=== PATIENT | female | born 1955 | race Caucasian/White ===

== ENCOUNTER 2019-12-07 19:19 | Inpatient (IN) | payer BC ==
[2019-12-07] MEDS ORDERED: ONDANSETRON 4 MG/2 ML VIAL IVP STA (19:44)
[2019-12-07] MEDS ORDERED: SODIUM CHLORIDE 0.9% 1,000 ML IV STA (19:44)
[2019-12-07] MEDS ORDERED: ACETAMINOPHEN TAB 500 MG TAB PO STA (19:46)
--- NOTE | 2019-12-07 19:50 | ED ---
Fever HPI - General Chief Complaint: Fever Stated Complaint: Nausea, body aches, poss fever Time Seen by Provider: 12/07/19 19:31 Source: patient, RN notes reviewed Mode of arrival: ambulatory Limitations: no limitations - History of Present Illness Initial Comments: 64-year-old female presents emergency Department with chief complaint of fever. Patient states she started soreness fever bodyaches cough for right lower quadrant abdominal pain nausea. Patient denies any dysuria hematuria no flank pain no back pain no chest pain. Patient states she has some shortness of breath. She does admit to a slight cough. Patient denies taking any medicatio ns. Patient denies any sick contacts. Patient denies any neck pain or neck stiffness. Patient has not taken any Tylenol Motrin. - Related Data Allergies Allergy/AdvReac Type Severity Reaction Status Date / Time influenza virus vaccine, Allergy Rash/Hives Verified 12/07/19 19:27 specific Review of Systems ROS Statement: Those systems with pertinent positive or pertinent negative responses have been documented in the HPI. ROS Other: All systems not noted in ROS Statement are negative. Past Medical History Past Medical History: No Reported History History of Any Multi-Drug Resistant Organisms: None Reported Past Surgical History: No Surgical Hx Reported Past Psychological History: No Psychological Hx Reported Smoking Status: Current every day smoker Past Alcohol Use History: None Reported Past Drug Use History: None Reported General Exam Limitations: no limitations General appearance: alert, in no apparent distress Head exam: Present: atraumatic, normocephalic, normal inspection Eye exam: Present: normal appearance, PERRL, EOMI. Absent: scleral icterus, co njunctival injection, periorbital swelling ENT exam: Present: normal exam, normal oropharynx, mucous membranes moist, TM's normal bilaterally Neck exam: Present: normal inspection, full ROM. Absent: tenderness, meningismus, lymphadenopathy Respiratory exam: Present: normal lung sounds bilaterally. Absent: respiratory distress, wheezes, rales, rhonchi, stridor Cardiovascular Exam: Present: normal rhythm, tachycardia, normal heart sounds. Absent: systolic murmur, diastolic murmur, rubs, gallop, clicks GI/Abdominal exam: Present: soft, tenderness (Moderate right lower quadrant), normal bowel sounds. Absent: distended, guarding, rebound, rigid Back exam: Absent: CVA tenderness (R), CVA tenderness (L) Neurological exam: Present: alert, oriented X3 Skin exam: Present: warm, dry, intact, normal color. Absent: rash Course Vital Signs 12/07/19 19:23 Temperature 100.9 F H Pulse Rate 121 H Respiratory 22 Rate Blood Pressure 142/85 O2 Sat by Pulse 96 Oximetry Medical Decision Making - Medical Decision Making CT reveals evidence of colitis versus diverticulitis. Patient was started on Zosyn patient does have leukocytosis, febrile. Patient will be admitted to Dr. Robles with consult to surgery. - Lab Data Result diagrams: 12/07/19 20:17 12/07/19 20:17 Lab Results 12/07/19 12/07/19 12/07/19 Range/Units 20:17 20:17 20:17 WBC 23.9 H (3.8-10.6) k/uL RBC 4.61 (3.80-5.40) m/uL Hgb 14.3 (11.4-16.0) gm/dL Hct 43.3 (34.0-46.0) % MCV 93.8 (80.0-100.0) fL MCH 30.9 (25.0-35.0) pg MCHC 33.0 (31.0-37.0) g/dL RDW 12.4 (11.5-15.5) % Plt Count 315 (150-450) k/uL Neutrophils % 89 % Lymphocytes % 4 % Monocytes % 5 % Eosinophils % 1 % Basophils % 0 % Neutrophils # 21.2 H (1.3-7.7) k/uL Lymphocytes # 0.9 L (1.0-4.8) k/uL Monocytes # 1.3 H (0-1.0) k/uL Eosinophils # 0.2 (0-0.7) k/uL Basophils # 0.1 (0-0.2) k/uL Sodium 136 L (137-145) mmol/L Potassium 3.5 (3.5-5.1) mmol/L Chloride 103 (98-107) mmol/L Carbon Dioxide 23 (22-30) mmol/L Anion Gap 10 mmol/L BUN 8 (7-17) mg/dL Creatinine 0.56 (0.52-1.04) mg/dL Est GFR (CKD-EPI)AfAm >90 (>60 ml/min/1.73 sqM) Est GFR (CKD-EPI)NonAf >90 (>60 ml/min/1.73 sqM) Glucose 129 H (74-99) mg/dL Plasma Lactic Acid Derrick 1.1 (0.7-2.0) mmol/L Calcium 9.2 (8.4-10.2) mg/dL Total Bilirubin 0.9 (0.2-1.3) mg/dL AST 21 (14-36) U/L ALT 20 (4-34) U/L Alkaline Phosphatase 138 H (38-126) U/L Total Protein 8.1 (6.3-8.2) g/dL Albumin 4.4 (3.5-5.0) g/dL Amylase 65 (30-110) U/L Lipase 137 (23-300) U/L Urine Color Urine Appearance (Clear) Urine pH (5.0-8.0) Ur Specific Roosevelt (1.001-1.035) Urine Protein (Negative) Urine Glucose (UA) (Negative) Urine Ketones (Negative) Urine Blood (Negative) Urine Nitrite (Negative) Urine Bilirubin (Negative) Urine Urobilinogen (<2.0) mg/dL Ur Leukocyte Esterase (Negative) Urine RBC (0-5) /hpf Urine WBC (0-5) /hpf Ur Squamous Epith Cells (0-4) /hpf Urine Bacteria (None) /hpf Urine Mucus (None) /hpf 12/07/19 Range/Units 21:15 WBC (3.8-10.6) k/uL RBC (3.80-5.40) m/uL Hgb (11.4-16.0) gm/dL Hct (34.0-46.0) % MCV (80.0-100.0) fL MCH (25.0-35.0) pg MCHC (31.0-37.0) g/dL RDW (11.5-15.5) % Plt Count (150-450) k/uL Neutrophils % % Lymphocytes % % Monocytes % % Eosinophils % % Basophils % % Neutrophils # (1.3-7.7) k/uL Lymphocytes # (1.0-4.8) k/uL Monocytes # (0-1.0) k/uL Eosinophils # (0-0.7) k/uL Basophils # (0-0.2) k/uL Sodium (137-145) mmol/L Potassium (3.5-5.1) mmol/L Chloride (98-107) mmol/L Carbon Dioxide (22-30) mmol/L Anion Gap mmol/L BUN (7-17) mg/dL Creatinine (0.52-1.04) mg/dL Est GFR (CKD-EPI)AfAm (>60 ml/min/1.73 sqM) Est GFR (CKD-EPI)NonAf (>60 ml/min/1.73 sqM) Glucose (74-99) mg/dL Plasma Lactic Acid Derrick (0.7-2.0) mmol/L Calcium (8.4-10.2) mg/dL Total Bilirubin (0.2-1.3) mg/dL AST (14-36) U/L ALT (4-34) U/L Alkaline Phosphatase (38-126) U/L Total Protein (6.3-8.2) g/dL Albumin (3.5-5.0) g/dL Amylase (30-110) U/L Lipase (23-300) U/L Urine Color Yellow Urine Appearance Clear (Clear) Urine pH 6.0 (5.0-8.0) Ur Specific Roosevelt 1.014 (1.001-1.035) Urine Protein Negative (Negative) Urine Glucose (UA) Negative (Negative) Urine Ketones Trace H (Negative) Urine Blood Trace H (Negative) Urine Nitrite Negative (Negative) Urine Bilirubin Negative (Negative) Urine Urobilinogen <2.0 (<2.0) mg/dL Ur Leukocyte Esterase Negative (Negative) Urine RBC 1 (0-5) /hpf Urine WBC <1 (0-5) /hpf Ur Squamous Epith Cells 2 (0-4) /hpf Urine Bacteria Rare H (None) /hpf Urine Mucus Occasional H (None) /hpf Disposition Clinical Impression: Acute diverticulitis Disposition: ADMITTED IP TO THIS HOSP Condition: Fair Referrals: Jesus Cast DO [Primary Care Provider] - 1-2 days
[2019-12-07 20:26] LABS: Basophils # (A) 0.1 k/uL (0-0.2); Basophils % (A) 0 %; Eosinophils # (A) 0.2 k/uL (0-0.7); Eosinophils % (A) 1 %; HCT 43.3 % (34.0-46.0); HGB 14.3 gm/dL (11.4-16.0); Lymphocytes # (A) 0.9 k/uL (1.0-4.8); Lymphocytes % (A) 4 %; MCH 30.9 pg (25.0-35.0); MCV 93.8 fL (80.0-100.0); Mean Platelet Volume 7.6; Monocytes # (A) 1.3 k/uL (0-1.0); Monocytes % (A) 5 %; Neutrophils # (A) 21.2 k/uL (1.3-7.7); Neutrophils % (A) 89 %; Platelet Count 315 k/uL (150-450); RBC 4.61 m/uL (3.80-5.40); RDW 12.4 % (11.5-15.5); WBC 23.9 k/uL (3.8-10.6)
[2019-12-07 20:42] LABS: ALT 20 U/L (4-34); AST 21 U/L (14-36); African American GFR (CKD) >90 (>60 ml/min/1.73 sqM); Albumin 4.4 g/dL (3.5-5.0); Alkaline Phosphatase 138 U/L (38-126); Amylase 65 U/L (30-110); Anion Gap 10 mmol/L; Blood Urea Nitrogen 8 mg/dL (7-17); Calcium 9.2 mg/dL (8.4-10.2); Carbon Dioxide 23 mmol/L (22-30); Chloride 103 mmol/L (98-107); Glucose 129 mg/dL (74-99); Lipase 137 U/L (23-300); Non-African American GFR(CKD) >90 (>60 ml/min/1.73 sqM); Potassium 3.5 mmol/L (3.5-5.1); Sodium 136 mmol/L (137-145); Total Bilirubin 0.9 mg/dL (0.2-1.3); Total Protein 8.1 g/dL (6.3-8.2)
--- NOTE | 2019-12-07 20:46 | XR ---
EXAMINATION TYPE: XR chest 2V DATE OF EXAM: 12/07/2019 COMPARISON: NONE HISTORY: Fever with body aches. TECHNIQUE: Frontal and lateral views of the chest are obtained. FINDINGS: There is chronic parenchymal change without suspicious focal air space opacity, pleural ef fusion, or pneumothorax seen. Calcified nodules or granulomas right mid lung are present. The cardia c silhouette size is within normal limits with atherosclerotic change in thoracic aorta. Right senior international tax manager al jugular central venous catheter terminates at level of SVC. Sclerotic lesion right proximal humeru s favors bone infarct. IMPRESSION: Chronic emphysematous and parenchymal fibrotic changes without suspicious acute infiltra te.
[2019-12-07 21:32] LABS: Appearance,Urine Clear (Clear); Bacteria,Urine Rare /hpf; Bilirubin,Urine Negative (Negative); Blood,Urine Trace (Negative); Color,Urine Yellow; Glucose,Urine (UA) Negative (Negative); Ketones,Urine Trace (Negative); Leukocyte Esterase,Urine Negative (Negative); Mucus,Urine Occasional /hpf; Nitrite,Urine Negative (Negative); Protein,Urine Negative (Negative); RBC,Urine 1 /hpf (0-5); Specific Gravity,Urine 1.014 (1.001-1.035); Squamous Epithelial Cell,Urine 2 /hpf (0-4); Urobilinogen,Urine <2.0 mg/dL (<2.0); WBC,Urine <1 /hpf (0-5)
--- NOTE | 2019-12-07 21:57 | CT ---
EXAMINATION TYPE: CT abdomen pelvis w con DATE OF EXAM: 12/07/2019 HISTORY: Abdominal pain, nausea CT DLP: 1223.2mGycm Automated Exposure Control for Dose Reduction was Utilized. CONTRAST: CT scan of the abdomen and pelvis is performed without oral but with IV Contrast, patient injected wi th 100 mL of Isovue 300. COMPARISON: None. FINDINGS: LUNG BASES: Coronary artery calcification and/or stents. Mild emphysematous change and linear scarrin g in both bases. LIVER/GB: No significant abnormality is appreciated. PANCREAS: No significant abnormality is seen. SPLEEN: Few scattered calcifications throughout the spleen consistent with product of old granulomato us disease. ADRENALS: No significant abnormality is seen. KIDNEYS: Symmetrical medullary uptake and excretion without hydronephrosis seen bilaterally. BOWEL: Suboptimal evaluation without enteric contrast. No suspicious small or large bowel dilatation. Stomach is poorly distended and thus suboptimally evaluated. Cannot exclude moderate diffuse gastrit is with prominence of gastric folds. Correlate clinically. Distal colonic diverticula greatest in the sigmoid colon with mild fat stranding and moderate to severe wall thickening mid to distal sigmoid c olon level extending into rectum. UTERUS/ADNEXA: Anteverted uterus extends to right of midline. LYMPH NODES: No greater than 1cm abdominal or pelvic lymph nodes are appreciated. OSSEOUS STRUCTURES: No significant abnormality is seen. OTHER: Partial visualization of ASSOCIATE PROFESSOR OF THEATRE shunt catheter terminating in the left pelvis. No significant asci erin currently. IMPRESSION: Distal colonic diverticulosis and fairly severe wall thickening with mild surrounding flu id and/or fat stranding suspicious for uncomplicated acute colitis possibly on basis of acute diverti culitis. Other etiologies such as infectious and/or inflammatory process not excluded. Advise colonos copy follow-up after treatment if that has not been performed in last 3 years to exclude underlying n eoplasm due to the severe wall thickening at the level of the distal sigmoid rectal colon.
[2019-12-07] MEDS ORDERED: PIPERACILLIN-TAZOBACTAM 3.375 GM in SODIUM CHLORIDE 0.9% 100 ML IVPB STA (22:00)
[2019-12-07] MEDS ORDERED: NALOXONE 0.4 MG/ML 1 ML VIAL IV PRN (22:22)
[2019-12-07] MEDS: SODIUM CHLORIDE 0.9% 1,000 ML IV SCH (23:00)
[2019-12-08] MEDS ORDERED: POTASSIUM CHLORIDE ER 20 MEQ TAB.ER PO STA (02:06)
--- NOTE | 2019-12-08 02:14 | P.HPIM ---
History of Present Illness H&P Date: 12/08/19 Chief Complaint: abd pain , nausea vomiting, and fever 64 -year-old female with history of coronary artery disease, hypertension, hypothyroid Patient comes in with couple day history of diffuse abdominal pain mainly in the right lower quadrant colicky in nature 5-8 out of 10 in severity comes and goes associated with nausea vomiting and by mouth intolerance, patient today started noticing fevers for which she decided come to the hospital this was also associated with some loose bowel movement but denies any bloody bowel movement denies any bloody vomiting or coffee-ground vomiting. Patient never had similar pain in the past however she does report generalized body aches which she relates to being in her 60s. Patient lives with her mother denies any sick contacts denies any recent traveling. She otherwise denies any chest pain or trouble breathing denies any upper respiratory infection like symptoms denies any sore throat denies any changes in smell or taste sensation. She denies any urinary changes. In the ED blood work showed leukocytosis imaging of the belly suggested colitis on a background of possible acute diverticulitis Review of Systems Pertinent positives as noted in HPI. All other systems were reviewed and are negative Past Medical History Past Medical History: Coronary Artery Disease (CAD), Cancer, Hyperlipidemia, Hypertension, Myocardial Infarction ([place]) Additional Past Medical History / Comment(s): hepatits as a child, latent TB at 31 years old, breast cancer, benign intracranial hypertension. Last Myocardial Infarction Date:: 2006 History of Any Multi-Drug Resistant Organisms: None Reported Past Surgical History: No Surgical Hx Reported Additional Past Surgical History / Comment(s): heart stents x2, partial left mastectomy, SECURITY AUDITOR shunt. Past Anesthesia/Blood Transfusion Reactions: No Reported Reaction Past Psychological History: No Psychological Hx Reported Smoking Status: Current every day smoker Past Alcohol Use History: None Reported Past Drug Use History: None Reported - Past Family History Father Family Medical History: Cancer Mother Family Medical History: Cancer Medications and Allergies Home Medications Medication Instructions Recorded Confirmed Type Atorvastatin [Lipitor] 10 mg PO HS 12/07/19 12/07/19 History Clopidogrel [Plavix] 75 mg PO HS 12/07/19 12/07/19 History Levothyroxine Sodium [Synthroid] 100 mcg PO DAILY 12/07/19 12/07/19 History Losartan/Hydrochlorothiazide 1 tab PO DAILY 12/07/19 12/07/19 History [Losartan-Hctz 50-12.5 mg Tab] Metoprolol Succinate [Toprol XL] 50 mg PO DAILY 12/07/19 12/07/19 History Omeprazole [PriLOSEC] 20 mg PO BID 12/07/19 12/07/19 History Allergies Allergy/AdvReac Type Severity Reaction Status Date / Time amoxicillin Allergy Rash/Hives Verified 12/07/19 22:48 influenza virus vaccine, Allergy Rash/Hives Verified 12/07/19 19:27 specific Tetracyclines Allergy Rash/Hives Verified 12/07/19 22:48 codeine AdvReac SYNCOPE Verified 12/07/19 22:48 Physical Exam Vitals: Vital Signs Temp Pulse Pulse Resp BP BP Pulse Ox 12/08/19 02:01 98.3 F 83 93 L 12/07/19 23:37 98.3 F 90 17 112/62 93 L 12/07/19 23:07 98.7 F 91 16 113/58 96 12/07/19 22:00 103 H 20 116/78 98 12/07/19 20:00 20 12/07/19 19:23 100.9 F H 121 H 22 142/85 96 Intake and Output 12/07/19 12/07/19 12/08/19 14:59 22:59 06:59 Other: Weight 77.111 kg 82.3 kg Constitutional: No acute distress, conversant, pleasant Eyes: Anicteric sclerae, moist conjunctiva, Pupils equal round reactive to light ENMT: NC/AT Oropharynx clear, no erythema, or exudates Neck: Supple, FROM, no masses, or JVD No carotid bruits No thyromegaly Lungs: Clear to auscultation Clear to percussion Normal respiratory effort, no accessory muscle use Cardiovascular: Heart regular in rate and rhythm, No murmurs, gallops, or rubs No peripheral edema Abdominal: Soft Tenderness to deep palpation especially over the right lower quadrant, no guarding, positive rebound tenderness, no rigidity Abdomen moving with respiration Normoactive bowel sounds No hepatomegaly, No splenomegaly No palpable mass No abdominal wall hernia noted Skin: Normal temperature, tone, texture, turgor No induration No subcutaneous nodules No rash, lesions No ulcers Extremities: No digital cyanosis No clubbing Pedal pulses intact and symmetrical Radial pulses intact and symmetrical No calf tenderness Psychiatric: Alert and oriented to person, place and time Appropriate affect fair judgement Neuro Muscles Strength 5/5 in all 4 extremities Sensation to light touch grossly present throughout Cranial nerves II-XII grossly intact No focal sensory deficits Lymphatics: no palpable cervical or supraclavicular , or inguinal lymph nodes Results CBC & Chem 7: 12/07/19 20:17 12/07/19 20:17 Labs: Abnormal Lab Results - Last 24 Hours (Table) 12/07/19 12/07/19 12/07/19 Range/Units 20:17 20:17 21:15 WBC 23.9 H (3.8-10.6) k/uL Neutrophils # 21.2 H (1.3-7.7) k/uL Lymphocytes # 0.9 L (1.0-4.8) k/uL Monocytes # 1.3 H (0-1.0) k/uL Sodium 136 L (137-145) mmol/L Glucose 129 H (74-99) mg/dL Alkaline Phosphatase 138 H (38-126) U/L Urine Ketones Trace H (Negative) Urine Blood Trace H (Negative) Urine Bacteria Rare H (None) /hpf Urine Mucus Occasional H (None) /hpf Thrombosis Risk Factor Assmnt - Choose All That Apply Any of the Below Risk Factors Present?: Yes Each Factor Represents 1 point: Obesity (BMI >25) Other Risk Factors: Yes Each Risk Factor Represents 2 Points: Age 61-74 years Other congenital or acquired thrombophilia - If yes, enter type in comment: No Thrombosis Risk Factor Assessment Total Risk Factor Score: 3 Thrombosis Risk Factor Assessment Level: Moderate Risk Assessment and Plan Assessment: Acute sepsis Acute colitis/diverticulitis Plan IV fluid hydration Nothing by mouth Pain control with morphine Antibiotics with Zosyn Follow-up cultures Discussed with patient to consider colonoscopy upon discharge 2- 3 months after the acute episode Mild hypokalemia Replace by mouth Follow-up electrolytes Chronic conditions History of coronary artery disease Hyperlipidemia Hypertension Hypothyroidism Resume home meds CODE STATUS: Full code DVT prophylaxis: Heparin subcu 3 times a day Discussed with: Patient, ER, RN Anticipated length of stay more than [address]: Home A total of 75 minutes was spent on the care of this complex patient more than 50% of the time was spent in counseling and care coordination.
[2019-12-08 06:08] LABS: Basophils % (A) 0 %; Eosinophils # (A) 0.2 k/uL (0-0.7); Eosinophils % (A) 1 %; HCT 40.1 % (34.0-46.0); HGB 12.9 gm/dL (11.4-16.0); Lymphocytes # (A) 0.8 k/uL (1.0-4.8); Lymphocytes % (A) 5 %; MCH 31.4 pg (25.0-35.0); MCHC 32.3 g/dL (31.0-37.0); MCV 97.4 fL (80.0-100.0); Mean Platelet Volume 7.8; Monocytes # (A) 1.2 k/uL (0-1.0); Monocytes % (A) 7 %; Neutrophils # (A) 14.7 k/uL (1.3-7.7); Neutrophils % (A) 86 %; Platelet Count 268 k/uL (150-450); RBC 4.12 m/uL (3.80-5.40); RDW 12.2 % (11.5-15.5); WBC 17.2 k/uL (3.8-10.6)
[2019-12-08] MEDS: LEVOTHYROXINE 100 MCG TAB PO SCH (06:13)
[2019-12-08] MEDS: ACETAMINOPHEN TAB 325 MG TAB PO PRN ×3 (06:13→18:43)
[2019-12-08] MEDS: SODIUM CHLORIDE 0.9% 1,000 ML IV SCH ×3 (06:14→22:53)
[2019-12-08 06:16] LABS: ALT 16 U/L (4-34); AST 18 U/L (14-36); African American GFR (CKD) >90 (>60 ml/min/1.73 sqM); Albumin 3.5 g/dL (3.5-5.0); Alkaline Phosphatase 98 U/L (38-126); Anion Gap 6 mmol/L; Blood Urea Nitrogen 7 mg/dL (7-17); Calcium 8.3 mg/dL (8.4-10.2); Carbon Dioxide 27 mmol/L (22-30); Chloride 107 mmol/L (98-107); Glucose 104 mg/dL (74-99); Non-African American GFR(CKD) >90 (>60 ml/min/1.73 sqM); Potassium 4.9 mmol/L (3.5-5.1); Sodium 140 mmol/L (137-145); Total Bilirubin 0.7 mg/dL (0.2-1.3); Total Protein 6.3 g/dL (6.3-8.2)
[2019-12-08] MEDS: PIPERACILLIN-TAZOBACTAM 3.375 GM in SODIUM CHLORIDE 0.9% 100 ML IVPB SCH ×3 (06:25→23:38)
[2019-12-08] MEDS: HEPARIN SODIUM,PORCINE 5,000 UNIT/ML 1 ML VIAL SQ SCH ×3 (08:05→23:38)
[2019-12-08] MEDS: PANTOPRAZOLE 40 MG TABLET PO SCH (08:05)
[2019-12-08] MEDS ORDERED: metroNIDAZOLE-NS PMX 500 MG in SALINE 1 100ML.BAG IVPB SCH (08:45)
[2019-12-08] MEDS ORDERED: METOPROLOL SUCCINATE (ER) 50 MG TAB.ER.24H PO SCH (09:00)
[2019-12-08] MEDS ORDERED: LOSARTAN-HCTZ 50-12.5 MG 1 EACH TAB PO SCH (09:00)
[2019-12-08] MEDS ORDERED: SODIUM CHLORIDE 0.9% 1,000 ML IV ONE (11:32)
--- NOTE | 2019-12-08 11:44 | P.GSCN ---
History of Present Illness Consult date: 12/08/19 History of present illness: CHIEF COMPLAINT: Abdominal pain with nausea and vomiting 1 day HISTORY OF PRESENT ILLNESS: This is a 64-year-old female with a known history of coronary disease with previous cardiac stents, myocardial infarction, hypertension, hyperlipidemia, benign cranial hypertension with GEODETIC ADVISOR shunt, nicotine dependence, left breast cancer with partial left mastectomy and chemo and radiation treatment. Patient presents to the emergency room with complaints of abdominal pain mostly on the right side with nausea sweats fevers and one episode of diarrhea. She has had no appetite and really has not eaten over the last 2 days. Patient reports her pain about a 5 out of 10. She had a temp of 101.5 in the ER was started on Zosyn and Flagyl for diverticulitis. We have been consulted for surgical management. PAST MEDICAL HISTORY: See list. PAST SURGICAL HISTORY: See list. MEDICATIONS: See list. ALLERGIES: See list. SOCIAL HISTORY: No illicit drug use. REVIEW OF SYSTEMS: CONSTITUTIONAL: Denies fever or chills. HEENT: Denies blurred vision, vision changes, or eye pain. Denies hemoptysis CARDIOVASCULAR: Denies chest pain or pressure. RESPIRATORY: No shortness of breath. GASTROINTESTINAL: See HPI for pertinent findings HEMATOLOGIC: Denies bleeding disorders. GENITOURINARY: Denies any blood in urine or increased urinary frequency. SKIN: Denies pruitis. Denies rash. PHYSICAL EXAM: VITAL SIGNS: Reviewed GENERAL: Well-developed in no acute distress. HEENT: No sclera icterus. Extraocular movements grossly intact. Moist buccal mucosa. Head is atraumatic, normocephalic. No nasal drainage. ABDOMEN: Soft. Obese. Nondistended. Tenderness with palpation to right lower quadrant. NEUROLOGIC: Alert and oriented. Cranial nerves II through XII grossly intact. LABORATORY DATA: WBC 23.9 down to 17.2, blood cultures pending, lactic 1.1 IMAGING: CT of the abdomen and pelvis showing distal colonic diverticulosis and fairly severe wall thickening with mild surrounding fluid and/or fat stranding suspicious for uncomplicated acute colitis possibly on the basis of acute diverticulitis. Other etiologies such as infectious and/or inflammatory process not excluded. Radiologist advises colonoscopy since last was performed in the last 3 years to exclude underlying neoplasm due to the severe wall thickening of the level of the distal sigmoid rectal: ASSESSMENT: 1. Abdominal pain with vomiting and fever likely secondary to diverticulitis 2. Acute diverticulitis 3. Severe wall thickening of the level of the distal sigmoid rectal colon noted on computed tomography scan of the abdomen 4. Hypotension and fever PLAN: -Continue IV antibiotics with Zosyn and Flagyl -Continue IV fluids -We will give 1 L normal saline IV fluid bolus for hypotension -Recommend colonoscopy in 6-8 weeks after acute diverticulitis infection has resolved -We'll keep patient nothing by mouth except for ice chips and popsicles -Check CBC in a.m. Thank you for this consultation. We'll follow along with you. Physician Heel Emery Buffer note has been reviewed by physician. Signing provider agrees with the documented findings, assessment, and plan of care. Past Medical History Past Medical History: Coronary Artery Disease (CAD), Cancer, Hyperlipidemia, Hypertension, Myocardial Infarction ([place]) Additional Past Medical History / Comment(s): hepatits as a child, latent TB at 31 years old, breast cancer, benign intracranial hypertension. Last Myocardial Infarction Date:: 2006 History of Any Multi-Drug Resistant Organisms: None Reported Past Surgical History: No Surgical Hx Reported Additional Past Surgical History / Comment(s): heart stents x2, partial left mastectomy, GEODETIC ADVISOR shunt. Past Anesthesia/Blood Transfusion Reactions: No Reported Reaction Past Psychological History: No Psychological Hx Reported Smoking Status: Current every day smoker Past Alcohol Use History: None Reported Past Drug Use History: None Reported - Past Family History Father Family Medical History: Cancer Mother Family Medical History: Cancer Medications and Allergies Home Medications Medication Instructions Recorded Confirmed Type Atorvastatin [Lipitor] 10 mg PO HS 12/07/19 12/07/19 History Clopidogrel [Plavix] 75 mg PO HS 12/07/19 12/07/19 History Levothyroxine Sodium [Synthroid] 100 mcg PO DAILY 12/07/19 12/07/19 History Losartan/Hydrochlorothiazide 1 tab PO DAILY 12/07/19 12/07/19 History [Losartan-Hctz 50-12.5 mg Tab] Metoprolol Succinate [Toprol XL] 50 mg PO DAILY 12/07/19 12/07/19 History Omeprazole [PriLOSEC] 20 mg PO BID 12/07/19 12/07/19 History Albuterol Inhaler [Ventolin Hfa 2 puff INHALATION RT-QID PRN 12/08/19 12/08/19 History Inhaler] Allergies Allergy/AdvReac Type Severity Reaction Status Date / Time amoxicillin Allergy Rash/Hives Verified 12/07/19 22:48 influenza virus vaccine, Allergy Rash/Hives Verified 12/07/19 19:27 specific Tetracyclines Allergy Rash/Hives Verified 12/07/19 22:48 codeine AdvReac SYNCOPE Verified 12/07/19 22:48 Surgical - Exam Vital Signs Temp Pulse Resp BP Pulse Ox 100.9 F H 121 H 22 142/85 96 12/07/19 19:23 12/07/19 19:23 12/07/19 19:23 12/07/19 19:23 12/07/19 19:23 Results - Labs 12/08/19 05:49 12/08/19 05:49 Abnormal Lab Results - Last 24 Hours (Table) 12/07/19 12/07/19 12/07/19 Range/Units 20:17 20:17 21:15 WBC 23.9 H (3.8-10.6) k/uL Neutrophils # 21.2 H (1.3-7.7) k/uL Lymphocytes # 0.9 L (1.0-4.8) k/uL Monocytes # 1.3 H (0-1.0) k/uL Sodium 136 L (137-145) mmol/L Glucose 129 H (74-99) mg/dL Calcium (8.4-10.2) mg/dL Alkaline Phosphatase 138 H (38-126) U/L Urine Ketones Trace H (Negative) Urine Blood Trace H (Negative) Urine Bacteria Rare H (None) /hpf Urine Mucus Occasional H (None) /hpf 12/08/19 12/08/19 Range/Units 05:49 05:49 WBC 17.2 H (3.8-10.6) k/uL Neutrophils # 14.7 H (1.3-7.7) k/uL Lymphocytes # 0.8 L (1.0-4.8) k/uL Monocytes # 1.2 H (0-1.0) k/uL Sodium (137-145) mmol/L Glucose 104 H (74-99) mg/dL Calcium 8.3 L (8.4-10.2) mg/dL Alkaline Phosphatase (38-126) U/L Urine Ketones (Negative) Urine Blood (Negative) Urine Bacteria (None) /hpf Urine Mucus (None) /hpf Diabetes panel 12/07/19 12/08/19 Range/Units 20:17 05:49 Sodium 136 L 140 (137-145) mmol/L Potassium 3.5 4.9 (3.5-5.1) mmol/L Chloride 103 107 (98-107) mmol/L Carbon Dioxide 23 27 (22-30) mmol/L BUN 8 7 (7-17) mg/dL Creatinine 0.56 0.65 (0.52-1.04) mg/dL Glucose 129 H 104 H (74-99) mg/dL Calcium 9.2 8.3 L (8.4-10.2) mg/dL AST 21 18 (14-36) U/L ALT 20 16 (4-34) U/L Alkaline Phosphatase 138 H 98 (38-126) U/L Total Protein 8.1 6.3 (6.3-8.2) g/dL Albumin 4.4 3.5 (3.5-5.0) g/dL Calcium panel 12/07/19 12/08/19 Range/Units 20:17 05:49 Calcium 9.2 8.3 L (8.4-10.2) mg/dL Albumin 4.4 3.5 (3.5-5.0) g/dL Pituitary panel 12/07/19 12/08/19 Range/Units 20:17 05:49 Sodium 136 L 140 (137-145) mmol/L Potassium 3.5 4.9 (3.5-5.1) mmol/L Chloride 103 107 (98-107) mmol/L Carbon Dioxide 23 27 (22-30) mmol/L BUN 8 7 (7-17) mg/dL Creatinine 0.56 0.65 (0.52-1.04) mg/dL Glucose 129 H 104 H (74-99) mg/dL Calcium 9.2 8.3 L (8.4-10.2) mg/dL Adrenal panel 12/07/19 12/08/19 Range/Units 20:17 05:49 Sodium 136 L 140 (137-145) mmol/L Potassium 3.5 4.9 (3.5-5.1) mmol/L Chloride 103 107 (98-107) mmol/L Carbon Dioxide 23 27 (22-30) mmol/L BUN 8 7 (7-17) mg/dL Creatinine 0.56 0.65 (0.52-1.04) mg/dL Glucose 129 H 104 H (74-99) mg/dL Calcium 9.2 8.3 L (8.4-10.2) mg/dL Total Bilirubin 0.9 0.7 (0.2-1.3) mg/dL AST 21 18 (14-36) U/L ALT 20 16 (4-34) U/L Alkaline Phosphatase 138 H 98 (38-126) U/L Total Protein 8.1 6.3 (6.3-8.2) g/dL Albumin 4.4 3.5 (3.5-5.0) g/dL
[2019-12-08] MEDS: ALBUTEROL NEBULIZED 2.5 MG/3 ML INHALATION SCH ×2 (13:19→13:31)
[2019-12-08] MEDS: ONDANSETRON 4 MG/2 ML VIAL IVP PRN ×2 (15:21→21:08)
--- NOTE | 2019-12-08 18:19 | P.PN ---
Progress Note - Text Progress Note Date: 12/08/19 Patient was seen. Please refer to H&P for full documentation. Patient continues to report lower abdominal pain. She is admitted for colitis and sepsis. Matthew has been admitted for anaerobic coverage. General surgery on board. Albuterol neb for shortness of breath or wheezing with history of COPD. Discussed with nursing, move to telemetry floor when bed available. She is pending clinical improvement. Likely DC in 2-3 days.
[2019-12-08] MEDS: metroNIDAZOLE-NS PMX 500 MG in SALINE 1 100ML.BAG IVPB SCH (19:03)
[2019-12-08] MEDS: ATORVASTATIN 10 MG TAB PO SCH (21:05)
[2019-12-08] MEDS: CLOPIDOGREL 75 MG TAB PO SCH (21:06)
[2019-12-08] MEDS: ALBUTEROL HFA INHALER INHALATION SCH (21:09)
[2019-12-09] MEDS: ALBUTEROL HFA INHALER INHALATION SCH ×4 (03:00→20:29)
[2019-12-09] MEDS: metroNIDAZOLE-NS PMX 500 MG in SALINE 1 100ML.BAG IVPB SCH ×3 (03:03→19:21)
[2019-12-09] MEDS: SODIUM CHLORIDE 0.9% 1,000 ML IV SCH ×4 (03:04→21:07)
[2019-12-09] MEDS: LEVOTHYROXINE 100 MCG TAB PO SCH (06:02)
[2019-12-09 07:52] LABS: Basophils % (A) 0 %; Eosinophils # (A) 0.1 k/uL (0-0.7); Eosinophils % (A) 0 %; HCT 35.2 % (34.0-46.0); HGB 10.9 gm/dL (11.4-16.0); Lymphocytes % (A) 8 %; MCH 30.4 pg (25.0-35.0); MCHC 30.9 g/dL (31.0-37.0); MCV 98.5 fL (80.0-100.0); Mean Platelet Volume 8.7; Monocytes # (A) 0.8 k/uL (0-1.0); Monocytes % (A) 6 %; Neutrophils # (A) 10.9 k/uL (1.3-7.7); Neutrophils % (A) 84 %; Platelet Count 227 k/uL (150-450); RBC 3.57 m/uL (3.80-5.40); RDW 12.7 % (11.5-15.5); WBC 13.1 k/uL (3.8-10.6)
[2019-12-09] MEDS: ACETAMINOPHEN TAB 325 MG TAB PO PRN (08:07)
[2019-12-09] MEDS: ONDANSETRON 4 MG/2 ML VIAL IVP PRN (08:08)
[2019-12-09] MEDS: PIPERACILLIN-TAZOBACTAM 3.375 GM in SODIUM CHLORIDE 0.9% 100 ML IVPB SCH ×3 (08:08→23:27)
[2019-12-09] MEDS: PANTOPRAZOLE 40 MG TABLET PO SCH (08:08)
[2019-12-09] MEDS: HEPARIN SODIUM,PORCINE 5,000 UNIT/ML 1 ML VIAL SQ SCH ×3 (08:08→23:28)
[2019-12-09 11:31] LABS: African American GFR (CKD) >90 (>60 ml/min/1.73 sqM); Anion Gap 7 mmol/L; Blood Urea Nitrogen 7 mg/dL (7-17); Calcium 8.4 mg/dL (8.4-10.2); Carbon Dioxide 22 mmol/L (22-30); Chloride 110 mmol/L (98-107); Glucose 74 mg/dL (74-99); Non-African American GFR(CKD) >90 (>60 ml/min/1.73 sqM); Potassium 4.4 mmol/L (3.5-5.1); Sodium 139 mmol/L (137-145)
[2019-12-09] MEDS ORDERED: KETOROLAC 15 MG/ML 1 ML VIAL IVP STA (13:21)
--- NOTE | 2019-12-09 14:30 | P.PN ---
Subjective Progress Note Date: 12/09/19 CHIEF COMPLAINT: Abdominal pain with nausea and vomiting HISTORY OF PRESENT ILLNESS: Patient is being followed for acute diverticulitis. She is still having some right lower abdominal pain. Her pain is starting to improve. She denies any nausea or vomiting. She reports having bowel movements. She did have a temp of 100.8 this morning. White count has gone down from 17.2 to 13.1. She remains on IV Zosyn and IV Flagyl. Hemoglobin 10.9. PHYSICAL EXAM: VITAL SIGNS: Reviewed. GENERAL: Well-developed in no acute distress. HEENT: No sclera icterus. Extraocular movements grossly intact. Moist buccal mucosa. Head is atraumatic, normocephalic. ABDOMEN: Soft. Nondistended. Tenderness to palpation of the right side of the lower abdomen NEUROLOGIC: Alert and oriented. Cranial nerves II through XII grossly intact. ASSESSMENT: 1. Abdominal pain with vomiting and fever likely secondary to diverticulitis 2. Acute diverticulitis 3. Severe wall thickening of the level of the distal sigmoid rectal colon noted on computed tomography scan of the abdomen 4. Hypotension and fever PLAN: -Advance diet to full liquid diet -Continue IV antibiotics with Zosyn and Flagyl -Continue IV fluids -Recommend colonoscopy in 6-8 weeks after acute diverticulitis infection has resolved -Check CBC in a.m. Physician Irrigation Supervisor note has been reviewed by physician. Signing provider agrees with the documented findings, assessment, and plan of care. Objective - Vital Signs Vital signs: Vital Signs Temp 97.1 F L 12/09/19 14:25 Pulse 70 12/09/19 14:25 Resp 15 12/09/19 14:25 BP 104/64 12/09/19 14:25 Pulse Ox 92 L 12/09/19 14:25 Intake & Output 12/08/19 12/09/19 12/09/19 18:59 06:59 18:59 Intake Total 40 1110 900 Output Total 300 Balance -260 1110 900 Intake: Intake, IV Titration 1050 900 Amount Piperacillin-Tazobactam 3 100 100 .375 gm In Sodium Chloride 0.9% 100 ml @ 25 mls/hr IVPB Q8H [facility] Rx#: [id number] Sodium Chloride 0.9% 1, 850 700 000 ml @ 130 mls/hr IV . Q7H42M [facility] Rx#:[id number] metroNIDAZOLE-NS PMX 500 100 mg In Saline 1 100ml.bag @ 100 mls/hr IVPB 0300, 1100,1900 [facility] Rx#: [id number] metroNIDAZOLE-NS PMX 500 100 mg In Saline 1 100ml.bag @ 100 mls/hr IVPB Q8HR [facility] Rx#:[id number] Oral 40 60 Output: Urine 250 Emesis 50 Other: Voiding Method Bedside Commode # Voids 1 # Bowel Movements 1 - Labs CBC & Chem 7: 12/09/19 06:15 12/09/19 06:15 Labs: Abnormal Lab Results - Last 24 Hours (Table) 12/09/19 12/09/19 Range/Units 06:15 06:15 WBC 13.1 H (3.8-10.6) k/uL RBC 3.57 L (3.80-5.40) m/uL Hgb 10.9 L (11.4-16.0) gm/dL MCHC 30.9 L (31.0-37.0) g/dL Neutrophils # 10.9 H (1.3-7.7) k/uL Chloride 110 H (98-107) mmol/L Microbiology - Last 24 Hours (Table) 12/07/19 20:17 Blood Culture - Preliminary Blood No Growth after 24 hours
--- NOTE | 2019-12-09 15:48 | P.PN ---
Subjective Progress Note Date: 12/09/19 Principal diagnosis: Colitis Patient was seen and examined. No acute events overnight. Patient reports frontal headache today. Abdominal pain improved. She denies any fever or chills. Reports multiple bowel movements today, more formed stool, brown in color. Objective - Vital Signs Vital signs: Vital Signs Temp 97.1 F L 12/09/19 14:25 Pulse 70 12/09/19 14:25 Resp 15 12/09/19 14:25 BP 104/64 12/09/19 14:25 Pulse Ox 92 L 12/09/19 14:25 Intake & Output 12/08/19 12/09/19 12/09/19 18:59 06:59 18:59 Intake Total 40 1110 1140 Output Total 300 Balance -260 1110 1140 Intake: Intake, IV Titration 1050 900 Amount Piperacillin-Tazobactam 3 100 100 .375 gm In Sodium Chloride 0.9% 100 ml @ 25 mls/hr IVPB Q8H [facility] Rx#: [id number] Sodium Chloride 0.9% 1, 850 700 000 ml @ 130 mls/hr IV . Q7H42M [facility] Rx#:[id number] metroNIDAZOLE-NS PMX 500 100 mg In Saline 1 100ml.bag @ 100 mls/hr IVPB 0300, 1100,1900 [facility] Rx#: [id number] metroNIDAZOLE-NS PMX 500 100 mg In Saline 1 100ml.bag @ 100 mls/hr IVPB Q8HR [facility] Rx#:[id number] Oral 40 60 240 Output: Urine 250 Emesis 50 Other: Voiding Method Bedside Commode # Voids 1 # Bowel Movements 1 4 - Exam General: [non toxic], [no distress], [appears at stated age] Derm: [warm], [dry] Head: [atraumatic], [normocephalic], [symmetric] Eyes: [EOMI], [no lid lag], [anicteric sclera] Mouth: [no lip lesion], [mucus membranes moist] Cardiovascular: [S1S2 reg], [no murmur], [positive DP pulse bilateral], Lungs: [CTA bilateral], [no rhonchi, no rales] , [no accessory muscle use] Abdominal: [soft], [tenderness to palpation lower abdomen bilaterally without rebound], [no guarding], [no appreciable organomegaly] Ext: [no gross muscle atrophy], [no edema], [no contractures] Neuro: [no focal neuro deficits] Psych: [Alert], [oriented], [appropriate affect] - Labs CBC & Chem 7: 12/09/19 06:15 12/09/19 06:15 Labs: Abnormal Lab Results - Last 24 Hours (Table) 12/09/19 12/09/19 Range/Units 06:15 06:15 WBC 13.1 H (3.8-10.6) k/uL RBC 3.57 L (3.80-5.40) m/uL Hgb 10.9 L (11.4-16.0) gm/dL MCHC 30.9 L (31.0-37.0) g/dL Neutrophils # 10.9 H (1.3-7.7) k/uL Chloride 110 H (98-107) mmol/L Microbiology - Last 24 Hours (Table) 12/07/19 20:17 Blood Culture - Preliminary Blood No Growth after 24 hours Assessment and Plan Assessment: Sepsis with colitis CAD Hypertension Dyslipidemia COPD Hypothyroidism Patient had a low-grade fever of 100.8 Fahrenheit this morning. Her leukocytosis is improved. She'll be continued on Zosyn and Flagyl. Blood cultures are negative at 24 hours. General surgery on board. Continue normal saline at 130 mL/h. Continue Protonix by mouth. Zofran as needed for nausea or vomiting. Continue aspirin, Lipitor and Plavix. Hold beta gurmeet until blood pressure improved. BP 104/64. Holding antihypertensive medication due to sepsis. Continue Lipitor. DuoNeb as needed for shortness of breath and wheezing. Continue Synthroid. [Patient made for sepsis related to colitis. She is clinically improved. Blood cultures negative so far. Continue IV antibiotics. Likely DC in 2-3 days.]
[2019-12-09] MEDS: CLOPIDOGREL 75 MG TAB PO SCH (21:06)
[2019-12-09] MEDS: ATORVASTATIN 10 MG TAB PO SCH (21:06)
[2019-12-09] MEDS: KETOROLAC 15 MG/ML 1 ML VIAL IVP PRN (21:50)
[2019-12-10] MEDS: ALBUTEROL HFA INHALER INHALATION SCH ×3 (01:08→10:58)
[2019-12-10] MEDS: metroNIDAZOLE-NS PMX 500 MG in SALINE 1 100ML.BAG IVPB SCH ×4 (02:16→20:17)
[2019-12-10] MEDS ORDERED: ALPRAZolam 0.5 MG TAB PO STA (04:44)
[2019-12-10] MEDS: IPRATROPIUM-ALBUTEROL 3 ML NEB INHALATION PRN ×4 (04:54→19:14)
[2019-12-10] MEDS: ACETAMINOPHEN TAB 325 MG TAB PO PRN (05:07)
[2019-12-10] MEDS: LEVOTHYROXINE 100 MCG TAB PO SCH (05:36)
[2019-12-10] MEDS: SODIUM CHLORIDE 0.9% 1,000 ML IV SCH (06:19)
--- NOTE | 2019-12-10 06:43 | XR ---
EXAMINATION TYPE: XR chest 1V portable DATE OF EXAM: 12/10/2019 COMPARISON: 12/07/2019 HISTORY: Short of breath TECHNIQUE: Single view FINDINGS: Heart size is normal. There is mild coarsening of interstitial markings. There is some infi ltrate in the left lower lobe behind the heart. There is no heart failure. There are chest leads. Bon y thorax is intact. IMPRESSION: There is evidence of some new pneumonia left lower lobe compared to recent exam. Normal h eart.
[2019-12-10] MEDS: PIPERACILLIN-TAZOBACTAM 3.375 GM in SODIUM CHLORIDE 0.9% 100 ML IVPB SCH ×2 (08:05→16:23)
[2019-12-10] MEDS: HEPARIN SODIUM,PORCINE 5,000 UNIT/ML 1 ML VIAL SQ SCH ×2 (08:06→16:23)
[2019-12-10] MEDS: PANTOPRAZOLE 40 MG TABLET PO SCH (08:06)
[2019-12-10] MEDS: KETOROLAC 15 MG/ML 1 ML VIAL IVP PRN (08:17)
[2019-12-10 09:45] LABS: Basophils % (A) 0 %; Eosinophils % (A) 0 %; HGB 10.6 gm/dL (11.4-16.0); Lymphocytes # (A) 0.9 k/uL (1.0-4.8); Lymphocytes % (A) 9 %; MCH 30.4 pg (25.0-35.0); MCHC 31.1 g/dL (31.0-37.0); MCV 97.8 fL (80.0-100.0); Mean Platelet Volume 8.3; Monocytes # (A) 0.7 k/uL (0-1.0); Monocytes % (A) 6 %; Neutrophils % (A) 83 %; Platelet Count 261 k/uL (150-450); RBC 3.47 m/uL (3.80-5.40); RDW 12.8 % (11.5-15.5); WBC 10.9 k/uL (3.8-10.6)
[2019-12-10] MEDS: LOSARTAN-HCTZ 50-12.5 MG 1 EACH TAB PO SCH (12:29)
[2019-12-10] MEDS: METOPROLOL SUCCINATE (ER) 50 MG TAB.ER.24H PO SCH (12:29)
--- NOTE | 2019-12-10 15:20 | P.PN ---
Subjective Progress Note Date: 12/10/19 CHIEF COMPLAINT: Abdominal pain with nausea and vomiting HISTORY OF PRESENT ILLNESS: Patient is being followed for acute diverticulitis. Patient's abdominal pain has improved. She denies any nausea or vomiting. She reports having bowel movements. She did have a temp of 100.9 this morning. Patient did have a chest x-ray showing possible pneumonia left lower lobe. WBC down to 10.9 PHYSICAL EXAM: VITAL SIGNS: Reviewed. GENERAL: Well-developed in no acute distress. HEENT: No sclera icterus. Extraocular movements grossly intact. Moist buccal mucosa. Head is atraumatic, normocephalic. ABDOMEN: Soft. Nondistended. Nontender NEUROLOGIC: Alert and oriented. Cranial nerves II through XII grossly intact. ASSESSMENT: 1. Abdominal pain with vomiting likely secondary to diverticulitis 2. Acute diverticulitis 3. Severe wall thickening of the level of the distal sigmoid rectal colon noted on computed tomography scan of the abdomen PLAN: -Advance diet to regular -Continue IV antibiotics with Zosyn and Flagyl -Continue IV fluids -Recommend colonoscopy in 6-8 weeks after acute diverticulitis infection has resolved -Check CBC in a.m. Physician Wooden Boat Builder note has been reviewed by physician. Signing provider agrees with the documented findings, assessment, and plan of care. Objective - Vital Signs Vital signs: Vital Signs Temp 97.6 F 12/10/19 13:30 Pulse 68 12/10/19 13:30 Resp 16 12/10/19 13:30 BP 127/81 12/10/19 13:30 Pulse Ox 94 L 12/10/19 13:30 Intake & Output 12/09/19 12/10/19 12/10/19 18:59 06:59 18:59 Intake Total 1630 1560 240 Balance 1630 1560 240 Intake: Intake, IV Titration 900 1560 Amount Piperacillin-Tazobactam 3 100 .375 gm In Sodium Chloride 0.9% 100 ml @ 25 mls/hr IVPB Q8H [facility] Rx#: [id number] Sodium Chloride 0.9% 1, 700 1560 000 ml @ 130 mls/hr IV . Q7H42M [facility] Rx#:[id number] metroNIDAZOLE-NS PMX 500 100 mg In Saline 1 100ml.bag @ 100 mls/hr IVPB Q8HR [facility] Rx#:[id number] Oral 730 240 Other: Voiding Method Toilet Bedside Commode # Voids 2 3 # Bowel Movements 4 3 - Labs CBC & Chem 7: 12/10/19 08:05 12/09/19 06:15 Labs: Abnormal Lab Results - Last 24 Hours (Table) 12/10/19 Range/Units 08:05 WBC 10.9 H (3.8-10.6) k/uL RBC 3.47 L (3.80-5.40) m/uL Hgb 10.6 L (11.4-16.0) gm/dL Neutrophils # 9.0 H (1.3-7.7) k/uL Lymphocytes # 0.9 L (1.0-4.8) k/uL Microbiology - Last 24 Hours (Table) 12/07/19 20:17 Blood Culture - Preliminary Blood No Growth after 48 hours
[2019-12-10] MEDS: ALBUTEROL NEBULIZED 2.5 MG/3 ML INHALATION SCH ×2 (15:21→19:14)
--- NOTE | 2019-12-10 17:11 | P.PN ---
Subjective Progress Note Date: 12/10/19 Principal diagnosis: Colitis Patient was seen and examined. No acute events overnight. Abdominal pain improved. She denies any fever or chills. Reports multiple bowel movements today, more formed stool, brown in color. Overnight, had episode of shortness of breath requiring Ativan. She complains of raspy cough. She denies any chest pain or palpitations. On 2 L NC. Objective - Vital Signs Vital signs: Vital Signs Temp 97.6 F 12/10/19 13:30 Pulse 61 12/10/19 15:33 Resp 16 12/10/19 13:30 BP 127/81 12/10/19 13:30 Pulse Ox 96 12/10/19 15:21 Intake & Output 12/09/19 12/10/19 12/10/19 18:59 06:59 18:59 Intake Total 1630 1560 240 Balance 1630 1560 240 Intake: Intake, IV Titration 900 1560 Amount Piperacillin-Tazobactam 3 100 .375 gm In Sodium Chloride 0.9% 100 ml @ 25 mls/hr IVPB Q8H [facility] Rx#: [id number] Sodium Chloride 0.9% 1, 700 1560 000 ml @ 130 mls/hr IV . Q7H42M [facility] Rx#:[id number] metroNIDAZOLE-NS PMX 500 100 mg In Saline 1 100ml.bag @ 100 mls/hr IVPB Q8HR [facility] Rx#:[id number] Oral 730 240 Other: Voiding Method Toilet Bedside Commode # Voids 2 3 # Bowel Movements 4 3 - Exam General: [non toxic], [no distress], [appears at stated age] Derm: [warm], [dry] Head: [atraumatic], [normocephalic], [symmetric] Eyes: [EOMI], [no lid lag], [anicteric sclera] Mouth: [no lip lesion], [mucus membranes moist] Cardiovascular: [S1S2 reg], [no murmur], [positive DP pulse bilateral], Lungs: [Decreased breath sounds bilateral], [no rhonchi, no rales] , [no accessory muscle use] Abdominal: [soft], [tenderness to palpation lower abdomen bilaterally without rebound, significant improved], [no guarding], [no appreciable organomegaly] Ext: [no gross muscle atrophy], [no edema], [no contractures] Neuro: [no focal neuro deficits] Psych: [Alert], [oriented], [appropriate affect] - Labs CBC & Chem 7: 12/10/19 08:05 12/09/19 06:15 Labs: Abnormal Lab Results - Last 24 Hours (Table) 12/10/19 Range/Units 08:05 WBC 10.9 H (3.8-10.6) k/uL RBC 3.47 L (3.80-5.40) m/uL Hgb 10.6 L (11.4-16.0) gm/dL Neutrophils # 9.0 H (1.3-7.7) k/uL Lymphocytes # 0.9 L (1.0-4.8) k/uL Microbiology - Last 24 Hours (Table) 12/07/19 20:17 Blood Culture - Preliminary Blood No Growth after 48 hours Assessment and Plan Assessment: Sepsis with colitis Pneumonia CAD Hypertension Dyslipidemia COPD Hypothyroidism Patient had a low-grade fever of 100.9 Fahrenheit this morning. Her leukocytosis is improved. She'll be continued on Zosyn and Flagyl. Blood cultures are negative at 48 hours. General surgery on board. Continue normal saline at 130 mL/h. Continue Protonix by mouth. Zofran as needed for nausea or vomiting. As seen on chest x-ray. Plans to order pro-calcitonin. Repeat chest x-ray to morning. Attempt to wean oxygen. Continue current antibiotics. Continue aspirin, Lipitor and Plavix. Restart metoprolol. BP 163/69. Restart metoprolol, losartan and hydrochlorothiazide. Monitor vitals and adjust medications if necessary. Continue Lipitor. DuoNeb as needed for shortness of breath and wheezing. Continue Synthroid. [Patient made for sepsis related to colitis. She is clinically improved. Found to have infiltrate on chest x-ray. Repeat chest x-ray tomorrow morning. Wean oxygen. Continue IV antibiotics. Follow pro-calcitonin. Plans on DC home tomorrow if patient continues to show improvement.]
[2019-12-10] MEDS: CLOPIDOGREL 75 MG TAB PO SCH (20:17)
[2019-12-10] MEDS: ATORVASTATIN 10 MG TAB PO SCH (20:17)
[2019-12-11] MEDS: PIPERACILLIN-TAZOBACTAM 3.375 GM in SODIUM CHLORIDE 0.9% 100 ML IVPB SCH ×3 (00:26→16:41)
[2019-12-11] MEDS: HEPARIN SODIUM,PORCINE 5,000 UNIT/ML 1 ML VIAL SQ SCH ×3 (00:27→16:41)
[2019-12-11] MEDS: ALBUTEROL NEBULIZED 2.5 MG/3 ML INHALATION PRN ×2 (00:42→15:02)
[2019-12-11] MEDS ORDERED: ALPRAZolam 0.5 MG TAB PO STA (00:48)
[2019-12-11] MEDS: metroNIDAZOLE-NS PMX 500 MG in SALINE 1 100ML.BAG IVPB SCH ×3 (03:31→17:59)
--- NOTE | 2019-12-11 04:00 | XR ---
EXAMINATION TYPE: XR chest 1V portable DATE OF EXAM: 12/11/2019 COMPARISON: Yesterday HISTORY: Short of breath TECHNIQUE: FINDINGS: Heart is enlarged. There is some pulmonary vascular congestion with lower lobe pulmonary ed adolfo and atelectasis. There is blunting of the costophrenic angles. Thoracic aorta is atheromatous. Shivam [place] thorax is intact. 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 IMPRESSION: There is evidence of congestive heart failure with pleural effusions and lower lobe pulmo nary infiltrates and atelectasis increased compared to yesterday.
[2019-12-11] MEDS ORDERED: FUROSEMIDE 10 MG/ML 10 ML VIAL IV STA (04:04)
[2019-12-11] MEDS: ACETAMINOPHEN TAB 325 MG TAB PO PRN (05:15)
[2019-12-11] MEDS: LEVOTHYROXINE 100 MCG TAB PO SCH (06:19)
[2019-12-11] MEDS: ALBUTEROL NEBULIZED 2.5 MG/3 ML INHALATION SCH ×3 (07:01→18:48)
[2019-12-11] MEDS: PANTOPRAZOLE 40 MG TABLET PO SCH (07:24)
[2019-12-11] MEDS: LOSARTAN-HCTZ 50-12.5 MG 1 EACH TAB PO SCH (08:20)
[2019-12-11] MEDS: FUROSEMIDE 10 MG/ML 4 ML VIAL IV SCH (08:20)
[2019-12-11] MEDS: METOPROLOL SUCCINATE (ER) 50 MG TAB.ER.24H PO SCH (08:21)
[2019-12-11 08:54] LABS: Basophils # (A) 0.1 k/uL (0-0.2); Basophils % (A) 1 %; Eosinophils # (A) 0.1 k/uL (0-0.7); Eosinophils % (A) 1 %; HCT 37.3 % (34.0-46.0); HGB 11.7 gm/dL (11.4-16.0); Lymphocytes % (A) 9 %; MCH 30.3 pg (25.0-35.0); MCHC 31.5 g/dL (31.0-37.0); MCV 96.4 fL (80.0-100.0); Mean Platelet Volume 7.8; Monocytes # (A) 1.2 k/uL (0-1.0); Monocytes % (A) 10 %; Neutrophils # (A) 8.8 k/uL (1.3-7.7); Neutrophils % (A) 77 %; Platelet Count 258 k/uL (150-450); RBC 3.86 m/uL (3.80-5.40); RDW 12.7 % (11.5-15.5); WBC 11.4 k/uL (3.8-10.6)
--- NOTE | 2019-12-11 11:04 | P.PN ---
Subjective Progress Note Date: 12/11/19 CHIEF COMPLAINT: Abdominal pain with nausea and vomiting HISTORY OF PRESENT ILLNESS: Patient is being followed for acute diverticulitis. Patient's abdominal pain has improved. She denies any nausea or vomiting. She reports having bowel movements. Patient currently afebrile. Last elevated temperature 100.9 yesterday morning. Chest x-ray showing some evidence of fluid overload and possible infiltrates. Primary care did give 2 doses of IV Lasix. Patient reports improvement shortness of breath. Patient tolerating regular diet. The CBC 11.4. PHYSICAL EXAM: VITAL SIGNS: Reviewed. GENERAL: Well-developed in no acute distress. HEENT: No sclera icterus. Extraocular movements grossly intact. Moist buccal mucosa. Head is atraumatic, normocephalic. ABDOMEN: Soft. Nondistended. Nontender NEUROLOGIC: Alert and oriented. Cranial nerves II through XII grossly intact. ASSESSMENT: 1. Abdominal pain with vomiting likely secondary to diverticulitis 2. Acute diverticulitis 3. Severe wall thickening of the level of the distal sigmoid rectal colon noted on computed tomography scan of the abdomen PLAN: -Continue regular -Continue IV antibiotics with Zosyn and Flagyl -Recommend colonoscopy in 6-8 weeks after acute diverticulitis infection has resolved -Patient does not require any surgical intervention is discharged from surgical standpoint once cleared by medicine. -Patient follow-up with Dr. Rodriguez in 1 week Physician Panelbeater note has been reviewed by physician. Signing provider agrees with the documented findings, assessment, and plan of care. Objective - Vital Signs Vital signs: Vital Signs Temp 98.2 F 12/11/19 05:04 Pulse 74 12/11/19 10:52 Resp 18 12/11/19 08:00 BP 121/69 12/11/19 05:04 Pulse Ox 92 L 12/11/19 07:02 Intake & Output 12/10/19 12/11/19 12/11/19 18:59 06:59 18:59 Intake Total 460 600 Output Total 3000 Balance 460 -2400 Intake: Intake, IV Titration 100 Amount metroNIDAZOLE-NS PMX 500 100 mg In Saline 1 100ml.bag @ 100 mls/hr IVPB 0300, 1100,1900 [facility] Rx#: [id number] Oral 460 500 Output: Urine 3000 Other: Voiding Method Toilet Bedside Commode # Voids 3 4 # Bowel Movements 3 - Labs CBC & Chem 7: 12/11/19 07:29 12/09/19 06:15 Labs: Abnormal Lab Results - Last 24 Hours (Table) 12/11/19 Range/Units 07:29 WBC 11.4 H (3.8-10.6) k/uL Neutrophils # 8.8 H (1.3-7.7) k/uL Monocytes # 1.2 H (0-1.0) k/uL Microbiology - Last 24 Hours (Table) 12/07/19 20:17 Blood Culture - Preliminary Blood No Growth after 72 hours
--- NOTE | 2019-12-11 15:52 | P.PN ---
Subjective Progress Note Date: 12/11/19 Principal diagnosis: Colitis Patient was seen and examined. No acute events overnight. Abdominal pain improved. She denies any fever or chills. Reports multiple bowel movements today, more formed stool, brown in color. Overnight, had episode of shortness of breath. Chest x-ray showing volume overload. Started on Lasix IV. She reports improvement in her breathing since last night. Complains of polyuria from the Lasix. Speaking in full sentences. Off of oxygen. She denies any chest pain or palpitations. No nausea or vomiting. No fever or chills. Objective - Vital Signs Vital signs: Vital Signs Temp 98.5 F 12/11/19 12:28 Pulse 72 12/11/19 15:16 Resp 17 12/11/19 12:28 BP 96/63 12/11/19 12:28 Pulse Ox 92 L 12/11/19 12:28 Intake & Output 12/10/19 12/11/19 12/11/19 18:59 06:59 18:59 Intake Total 460 600 Output Total 3000 Balance 460 -2400 Intake: Intake, IV Titration 100 Amount metroNIDAZOLE-NS PMX 500 100 mg In Saline 1 100ml.bag @ 100 mls/hr IVPB 0300, 1100,1900 [facility] Rx#: [id number] Oral 460 500 Output: Urine 3000 Other: Voiding Method Toilet Bedside Commode # Voids 3 4 # Bowel Movements 3 - Exam General: [non toxic], [no distress], [appears at stated age] Derm: [warm], [dry] Head: [atraumatic], [normocephalic], [symmetric] Eyes: [EOMI], [no lid lag], [anicteric sclera] Mouth: [no lip lesion], [mucus membranes moist] Cardiovascular: [S1S2 reg], [no murmur], [positive DP pulse bilateral], Lungs: [Decreased breath sounds bilateral with rales at the bases] , [no accessory muscle use] Abdominal: [soft], [tenderness to palpation lower abdomen bilaterally without rebound, significant improved], [no guarding], [no appreciable organomegaly] Ext: [no gross muscle atrophy], [no edema], [no contractures] Neuro: [no focal neuro deficits] Psych: [Alert], [oriented], [appropriate affect] - Labs CBC & Chem 7: 12/11/19 07:29 12/09/19 06:15 Labs: Abnormal Lab Results - Last 24 Hours (Table) 12/11/19 Range/Units 07:29 WBC 11.4 H (3.8-10.6) k/uL Neutrophils # 8.8 H (1.3-7.7) k/uL Monocytes # 1.2 H (0-1.0) k/uL Microbiology - Last 24 Hours (Table) 12/07/19 20:17 Blood Culture - Preliminary Blood No Growth after 72 hours Assessment and Plan Assessment: Acute hypoxic respiratory failure from volume overload Sepsis with colitis CAD Hypertension Dyslipidemia COPD Hypothyroidism Chest x-ray showing volume overload. Follow echocardiogram. Repeat chest x-ray tomorrow. Start Lasix 40 mg IV twice a day. Pro-calcitonin negative. Does not appear to be pneumonia. Patient afebrile over the last 24 hours. Her leukocytosis is improved. She'll be continued on Zosyn and Flagyl. Blood cultures are negative at 48 hours. General surgery on board. DC IVF and encourage hydration by mouth Continue Protonix by mouth. Zofran as needed for nausea or vomiting. Continue aspirin, Lipitor and Plavix. Restart metoprolol. BP 96/63. Continue metoprolol, losartan and hydrochlorothiazide. Monitor vitals and adjust medications if necessary. Continue Lipitor. DuoNeb as needed for shortness of breath and wheezing. Continue Synthroid. [Patient admitted for sepsis related to colitis. She is clinically improved. Found to be in fluid overload. Started on Lasix IV. Plans to repeat chest x- ray tomorrow morning. Possible DC home in 1-2 days if patient continues to improve and can be weaned off oxygen.]
[2019-12-11] MEDS: KETOROLAC 15 MG/ML 1 ML VIAL IVP PRN (16:41)
--- NOTE | 2019-12-11 17:42 | ECHOF ---
Referral Reason:SOB MEASUREMENTS -------- HEIGHT: 154.9 cm WEIGHT: 82.1 kg BP: 121/69 RVIDd: 3.2 cm (< 3.3) IVSd: 1.2 cm (0.6 - 1.1) LVIDd: 3.8 cm (3.9 - 5.3) LVPWd: 1.1 cm (0.6 - 1.1) IVSs: 1.5 cm LVIDs: 2.6 cm LVPWs: 1.6 cm LA Diam: 3.1 cm (2.7 - 3.8) LAESV Index (A-L): 21.66 ml/m Ao Diam: 2.9 cm (2.0 - 3.7) AV Cusp: 1.8 cm (1.5 - 2.6) MV EXCURSION: 17.332 mm (> 18.000) MV EF SLOPE: 69 mm/s (70 - 150) EPSS: 0.4 cm MV E Asad: 1.22 m/s MV DecT: 257 ms MV A Asad: 1.11 m/s MV E/A Ratio: 1.11 AV maxP.35 mmHg AV meanP.35 mmHg RAP: 5.00 mmHg RVSP: 33.76 mmHg FINDINGS -------- Sinus rhythm. This was a technically adequate study. The left ventricular size is normal. There is borderline concentric left ventricular hypertrophy. Overall left ventricular systolic function is normal with, an EF between 55 - 60 %. The right ventricle is normal in size. Normal LA size by volume 22+/-6 ml/m2. The right atrial size is normal. Interatrial and interventricular septum intact. There is mild aortic valve sclerosis. There is no evidence of aortic regurgitation. Mild mitral annular calcification present. Mild mitral regurgitation is present. Mild tricuspid regurgitation present. Right ventricular systolic pressure is normal at < 35 mmHg. The right ventricular systolic pressure, as measured by Doppler, is 33.76mmHg. Trace/mild (physiologic) pulmonic regurgitation. The aortic root size is normal. Normal inferior vena cava with normal inspiratory collapse consistent with estimated right atrial pre ssure of 5 mmHg. There is no pericardial effusion. CONCLUSIONS -------- 1. There is borderline concentric left ventricular hypertrophy. 2. Overall left ventricular systolic function is normal with, an EF between 55 - 60 %. 3. Normal LA size by volume 22+/-6 ml/m2. 4. There is mild aortic valve sclerosis. 5. Mild mitral annular calcification present. 6. Mild mitral regurgitation is present. 7. Mild tricuspid regurgitation present. 8. Trace/mild (physiologic) pulmonic regurgitation. 9. There is no pericardial effusion. SPINNING MULE TENDER: Roma Lee RDCS
[2019-12-12] MEDS: PIPERACILLIN-TAZOBACTAM 3.375 GM in SODIUM CHLORIDE 0.9% 100 ML IVPB SCH ×2 (01:03→08:05)
[2019-12-12] MEDS: CLOPIDOGREL 75 MG TAB PO SCH (01:04)
[2019-12-12] MEDS: HEPARIN SODIUM,PORCINE 5,000 UNIT/ML 1 ML VIAL SQ SCH ×2 (01:04→08:04)
[2019-12-12] MEDS: FUROSEMIDE 10 MG/ML 4 ML VIAL IV SCH ×2 (01:04→08:04)
[2019-12-12] MEDS: ATORVASTATIN 10 MG TAB PO SCH (01:05)
[2019-12-12] MEDS: metroNIDAZOLE-NS PMX 500 MG in SALINE 1 100ML.BAG IVPB SCH ×2 (03:57→12:11)
[2019-12-12] MEDS: KETOROLAC 15 MG/ML 1 ML VIAL IVP PRN (06:05)
[2019-12-12] MEDS: LEVOTHYROXINE 100 MCG TAB PO SCH ×2 (06:06→08:05)
[2019-12-12] MEDS: ALBUTEROL NEBULIZED 2.5 MG/3 ML INHALATION SCH ×2 (07:18→13:16)
[2019-12-12] MEDS: LOSARTAN-HCTZ 50-12.5 MG 1 EACH TAB PO SCH (08:04)
[2019-12-12] MEDS: METOPROLOL SUCCINATE (ER) 50 MG TAB.ER.24H PO SCH (08:04)
[2019-12-12] MEDS: PANTOPRAZOLE 40 MG TABLET PO SCH (08:04)
[2019-12-12 09:28] VITALS: BP 123/73; PULSE 70; RESP 12; TEMP 98.2
--- NOTE | 2019-12-12 11:10 | P.PN ---
Progress Note - Text Progress Note Date: 12/12/19 The patient feels better. She denies a significant pain. On exam vitals are stable. Abdomen soft. Resolving diverticulitis. Patient was discharged home. She'll follow-up in one week.
--- NOTE | 2019-12-12 15:38 | P.DS ---
Providers Date of admission: 12/07/19 22:27 Attending physician: Heriberto Robles MD Consults: 12/07/19 22:23 Consult Physician Urgent Consulting Provider: Anish Rodriguez Consult Reason/Comments: Fever, colitis Do you want consulting provider notified?: Yes Primary care physician: Jesus Cast Hospital Course: Acute hypoxic respiratory failure from volume overload Sepsis with colitis CAD Hypertension Dyslipidemia COPD Hypothyroidism 64 year old woman with CAD, HTN, HLD, COPD, Hypothyroidism presented with abdominal pain and was found to have sepsis from diverticulitis and improved on zosyn and flagyl. Her hospital course was complicated by fluid overload resulting in hypoxemic respiratory failure, but this improved with diuretics. Echo was completed and showed low normal EF between 50-55%, no WMA, and appropriate RVSP, with mild valvular disease. She was on room air on day of discharge. She was given ciprofloxacin and flagyl PO for a total of a 7 day antibiotic course. Surgery consulted for the case, and no operative management was indicated. Patient will follow up with primary care provider going forward. I spent more than 30 minutes coordinating this discharge. Patient Condition at Discharge: Fair Plan - Discharge Summary Discharge Rx Participant: Yes New Discharge Prescriptions: New Ciprofloxacin HCl 500 mg PO BID 3 Days #6 tab metroNIDAZOLE [Flagyl] 500 mg PO TID 3 Days #9 tab Continue Metoprolol Succinate [Toprol XL] 50 mg PO DAILY Omeprazole [PriLOSEC] 20 mg PO BID Clopidogrel [Plavix] 75 mg PO HS Atorvastatin [Lipitor] 10 mg PO HS Levothyroxine Sodium [Synthroid] 100 mcg PO DAILY Losartan/Hydrochlorothiazide [Losartan-Hctz 50-12.5 mg Tab] 1 tab PO DAILY Albuterol Inhaler [Ventolin Hfa Inhaler] 2 puff INHALATION RT-QID PRN PRN Reason: Shortness Of Breath Discharge Medication List Atorvastatin [Lipitor] 10 mg PO HS 12/07/19 [History] Clopidogrel [Plavix] 75 mg PO HS 12/07/19 [History] Levothyroxine Sodium [Synthroid] 100 mcg PO DAILY 12/07/19 [History] Losartan/Hydrochlorothiazide [Losartan-Hctz 50-12.5 mg Tab] 1 tab PO DAILY 12/07/19 [History] Metoprolol Succinate [Toprol XL] 50 mg PO DAILY 12/07/19 [History] Omeprazole [PriLOSEC] 20 mg PO BID 12/07/19 [History] Albuterol Inhaler [Ventolin Hfa Inhaler] 2 puff INHALATION RT-QID PRN 12/08/19 [History] Ciprofloxacin HCl 500 mg PO BID 3 Days #6 tab 12/12/19 [Rx] metroNIDAZOLE [Flagyl] 500 mg PO TID 3 Days #9 tab 12/12/19 [Rx] Follow up Appointment(s)/Referral(s): Jesus Cast DO [Primary Care Provider] - 1-2 days Anish Rodriguez MD [STAFF PHYSICIAN] - 1 Week Patient Instructions/Handouts: Diverticulitis (DC) Discharge Disposition: HOME SELF-CARE Care Plan Goals (MU): advance activity as tolerated advance diet as tolerated
== END 2019-12-12 13:24 | disposition home or self-care (01) | DRG 871 ==
LOC: EC 19:19 → 4SSUR 22:27 → 6PED 23:13 → 5NMEDONC 12-08 20:59
PROVIDERS: ADMIT Internal Medicine; ATTEND Internal Medicine
DX: A41.9 Sepsis, unspecified organism (principal); J96.01 Acute respiratory failure with hypoxia; E78.5 Hyperlipidemia, unspecified; E03.9 Hypothyroidism, unspecified; E87.6 Hypokalemia; F17.200 Nicotine dependence, unspecified, uncomplicated; I10 Essential (primary) hypertension; I25.10 Atherosclerotic heart disease of native coronary artery without angina pectoris; K52.9 Noninfective gastroenteritis and colitis, unspecified; K57.30 Diverticulosis of large intestine without perforation or abscess without bleeding; E87.70 Fluid overload, unspecified; J44.9 Chronic obstructive pulmonary disease, unspecified; Z20.828 Contact with and (suspected) exposure to other viral communicable diseases; Z88.7 Allergy status to serum and vaccine; I25.2 Old myocardial infarction; Z95.5 Presence of coronary angioplasty implant and graft; Z90.12 Acquired absence of left breast and nipple; Z85.3 Personal history of malignant neoplasm of breast; Z98.2 Presence of cerebrospinal fluid drainage device; Z80.9 Family history of malignant neoplasm, unspecified; Z79.890 Hormone replacement therapy; Z79.899 Other long term (current) drug therapy; Z88.1 Allergy status to other antibiotic agents; Z88.5 Allergy status to narcotic agent
CPT/HCPCS: 36415; 71045; 71046; 74177; 80048; 80053; 81001; 82150; 83605; 83690; 84145; 85025; 87040; 93306; 94640; 94760; 96361; 96365; 96375; 99285

== ENCOUNTER 2021-01-05 16:38 | Emergency (ER) | payer BC ==
[2021-01-05 16:55] VITALS: RESP 16
[2021-01-05] MEDS ORDERED: DIAZEPAM 5 MG/ML 2 ML INJ IVP STA (17:00)
[2021-01-05] MEDS ORDERED: SODIUM CHLORIDE 0.9% 500 ML 500 ML IV STA (17:00)
[2021-01-05] MEDS ORDERED: MECLIZINE 25 MG TAB PO STA (17:00)
--- NOTE | 2021-01-05 17:05 | ED ---
Dizziness HPI - General Chief Complaint: Dizziness Stated Complaint: dizziness Time Seen by Provider: 01/05/21 16:50 Source: patient, EMS, RN notes reviewed, old records reviewed Mode of arrival: EMS Limitations: no limitations - History of Present Illness Initial Comments: This is a 65-year-old female who presents emergency department stating that she woke up this morning when she rolled out of bed the whole room was spinning. Patient states since then the room continues to spin anytime she moves her head and she becomes very nauseated and has been vomiting quite a bit. Patient denies any headache patient denies numbness or weakness. Patient denies any chest pain palpitations difficulty breathing shortness of breath. Patient states she's never had any symptoms like this before. Patient denies any new ringing in her ears or deafness. Patient denies any abdominal pain patient denies any diarrhea. Patient denies any recent fever chills or cough. Patient denies any ear pain - Related Data Home Medications Medication Instructions Recorded Confirmed Atorvastatin [Lipitor] 10 mg PO HS 12/07/19 12/07/19 Clopidogrel [Plavix] 75 mg PO HS 12/07/19 12/07/19 Levothyroxine Sodium [Synthroid] 100 mcg PO DAILY 12/07/19 12/07/19 Losartan/Hydrochlorothiazide 1 tab PO DAILY 12/07/19 12/07/19 [Losartan-Hctz 50-12.5 mg Tab] Metoprolol Succinate [Toprol XL] 50 mg PO DAILY 12/07/19 12/07/19 Omeprazole [PriLOSEC] 20 mg PO BID 12/07/19 12/07/19 Albuterol Inhaler [Ventolin Hfa 2 puff INHALATION RT-QID PRN 12/08/19 12/08/19 Inhaler] Previous Rx's Medication Instructions Recorded Ciprofloxacin HCl 500 mg PO BID 3 Days #6 tab 12/12/19 metroNIDAZOLE [Flagyl] 500 mg PO TID 3 Days #9 tab 12/12/19 Meclizine [Antivert] 25 mg PO TID #20 tab 01/05/21 Allergies Allergy/AdvReac Type Severity Reaction Status Date / Time amoxicillin Allergy Rash/Hives Verified 01/05/21 16:55 influenza virus vaccine, Allergy Rash/Hives Verified 01/05/21 16:55 specific Tetracyclines Allergy Rash/Hives Verified 01/05/21 16:55 codeine AdvReac SYNCOPE Verified 01/05/21 16:55 Review of Systems ROS Statement: Those systems with pertinent positive or pertinent negative responses have been documented in the HPI. ROS Other: All systems not noted in ROS Statement are negative. Past Medical History Past Medical History: Coronary Artery Disease (CAD), Cancer, Hyperlipidemia, Hypertension, [place] Inf[place] ([place]) Additional Past Medical History / Comment(s): hepatits as a child, latent TB at 31 years old, breast cancer, benign intracranial hypertension. Last Myocardial Infarction Date:: 2006 History of Any Multi-Drug Resistant Organisms: None Reported Past Surgical History: No Surgical Hx Reported Additional Past Surgical History / Comment(s): heart stents x2, partial left mastectomy, PRACTICE ASSISTANT shunt. Past Anesthesia/Blood Transfusion Reactions: No Reported Reaction Past Psychological History: No Psychological Hx Reported Smoking Status: Current every day smoker Past Alcohol Use History: None Reported Past Drug Use History: None Reported - Past Family History Father Family Medical History: Cancer Mother Family Medical History: Cancer General Exam - General Exam Comments Initial Comments: GENERAL: Patient is well-developed and well-nourished. Patient is nontoxic and well- hydrated and is in mild distress. ENT: Neck is soft and supple. No significant lymphadenopathy is noted. Oropharynx is clear. Moist mucous membranes. Neck has full range of motion without eliciting any pain. EYES: The sclera were anicteric and conjunctiva were pink and moist. Extraocular movements were intact and pupils were equal round and reactive to light. Eyelids were unremarkable. PULMONARY: Unlabored respirations. Good breath sounds bilaterally. No audible rales rhonchi or wheezing was noted. CARDIOVASCULAR: There is a regular rate and rhythm without any murmurs gallops or rubs. ABDOMEN: Soft and nontender with normal bowel sounds. SKIN: Skin is clear with no lesions or rashes and otherwise unremarkable. NEUROLOGIC: Patient is alert and oriented x3. Cranial nerves II through XII are grossly intact. Motor and sensory are also intact. Normal speech, volume and content. Symmetrical smile. Finger to nose testing is normal bilaterally MUSCULOSKELETAL: Normal extremities with adequate strength and full range of motion. No lower extremity swelling or edema. No calf tenderness. LYMPHATICS: No significant lymphadenopathy is noted PSYCHIATRIC: Normal psychiatric evaluation. Limitations: no limitations Course Vital Signs 01/05/21 16:51 Temperature 98.6 F Pulse Rate 76 Respiratory 16 Rate Blood Pressure 160/84 O2 Sat by Pulse 94 L Oximetry Medical Decision Making - Medical Decision Making EKG shows normal sinus rhythm at 74 bpm OK interval is 156 QRS is 82 QT interval 400 QTC is 444 per patient's EKG shows no ST segment elevation or depression CT of the brain shows no acute abnormality. I will begin the room to reevaluate the patient after he had a minute and she stated she felt considerably better and was no longer vomiting. - Lab Data Result diagrams: 01/05/21 17:34 01/05/21 17:34 Lab Results 01/05/21 01/05/21 01/05/21 Range/Units 17:34 17:34 17:34 WBC 9.8 (3.8-10.6) k/uL RBC 4.36 (3.80-5.40) m/uL Hgb 13.7 (11.4-16.0) gm/dL Hct 41.1 (34.0-46.0) % MCV 94.4 (80.0-100.0) fL MCH 31.4 (25.0-35.0) pg MCHC 33.3 (31.0-37.0) g/dL RDW 12.7 (11.5-15.5) % Plt Count 283 (150-450) k/uL MPV 7.5 Neutrophils % 84 % Lymphocytes % 9 % Monocytes % 5 % Eosinophils % 1 % Basophils % 0 % Neutrophils # 8.2 H (1.3-7.7) k/uL Lymphocytes # 0.9 L (1.0-4.8) k/uL Monocytes # 0.5 (0-1.0) k/uL Eosinophils # 0.1 (0-0.7) k/uL Basophils # 0.0 (0-0.2) k/uL PT 10.0 (9.0-12.0) sec INR 0.9 (<1.2) APTT 18.6 L (22.0-30.0) sec Sodium 138 (137-145) mmol/L Potassium 4.2 (3.5-5.1) mmol/L Chloride 105 (98-107) mmol/L Carbon Dioxide 24 (22-30) mmol/L Anion Gap 9 mmol/L BUN 14 (7-17) mg/dL Creatinine 0.47 L (0.52-1.04) mg/dL Est GFR (CKD-EPI)AfAm >90 (>60 ml/min/1.73 sqM) Est GFR (CKD-EPI)NonAf >90 (>60 ml/min/1.73 sqM) Glucose 115 H (74-99) mg/dL Calcium 9.3 (8.4-10.2) mg/dL Magnesium 1.8 (1.6-2.3) mg/dL Total Bilirubin 0.4 (0.2-1.3) mg/dL AST 27 (14-36) U/L ALT 24 (4-34) U/L Alkaline Phosphatase 136 H (38-126) U/L Troponin I (0.000-0.034) ng/mL Total Protein 7.5 (6.3-8.2) g/dL Albumin 4.1 (3.5-5.0) g/dL 01/05/21 Range/Units 17:34 WBC (3.8-10.6) k/uL RBC (3.80-5.40) m/uL Hgb (11.4-16.0) gm/dL Hct (34.0-46.0) % MCV (80.0-100.0) fL MCH (25.0-35.0) pg MCHC (31.0-37.0) g/dL RDW (11.5-15.5) % Plt Count (150-450) k/uL MPV Neutrophils % % Lymphocytes % % Monocytes % % Eosinophils % % Basophils % % Neutrophils # (1.3-7.7) k/uL Lymphocytes # (1.0-4.8) k/uL Monocytes # (0-1.0) k/uL Eosinophils # (0-0.7) k/uL Basophils # (0-0.2) k/uL PT (9.0-12.0) sec INR (<1.2) APTT (22.0-30.0) sec Sodium (137-145) mmol/L Potassium (3.5-5.1) mmol/L Chloride (98-107) mmol/L Carbon Dioxide (22-30) mmol/L Anion Gap mmol/L BUN (7-17) mg/dL Creatinine (0.52-1.04) mg/dL Est GFR (CKD-EPI)AfAm (>60 ml/min/1.73 sqM) Est GFR (CKD-EPI)NonAf (>60 ml/min/1.73 sqM) Glucose (74-99) mg/dL Calcium (8.4-10.2) mg/dL Magnesium (1.6-2.3) mg/dL Total Bilirubin (0.2-1.3) mg/dL AST (14-36) U/L ALT (4-34) U/L Alkaline Phosphatase (38-126) U/L Troponin I <0.012 (0.000-0.034) ng/mL Total Protein (6.3-8.2) g/dL Albumin (3.5-5.0) g/dL Disposition Clinical Impression: Vertigo Disposition: HOME SELF-CARE Condition: Good Instructions (If sedation given, give patient instructions): Vertigo (ED) Prescriptions: Meclizine [Antivert] 25 mg PO TID #20 tab Is patient prescribed a controlled substance at d/c from ED?: No Referrals: Jesus Cast DO [Primary Care Provider] - 1-2 days Time of Disposition: 19:04
[2021-01-05 17:47] LABS: Basophils % (A) 0 %; Eosinophils # (A) 0.1 k/uL (0-0.7); Eosinophils % (A) 1 %; HCT 41.1 % (34.0-46.0); HGB 13.7 gm/dL (11.4-16.0); Lymphocytes # (A) 0.9 k/uL (1.0-4.8); Lymphocytes % (A) 9 %; MCH 31.4 pg (25.0-35.0); MCHC 33.3 g/dL (31.0-37.0); MCV 94.4 fL (80.0-100.0); Mean Platelet Volume 7.5; Monocytes # (A) 0.5 k/uL (0-1.0); Monocytes % (A) 5 %; Neutrophils # (A) 8.2 k/uL (1.3-7.7); Neutrophils % (A) 84 %; Platelet Count 283 k/uL (150-450); RBC 4.36 m/uL (3.80-5.40); RDW 12.7 % (11.5-15.5); WBC 9.8 k/uL (3.8-10.6)
[2021-01-05 18:06] LABS: Chloride 105 mmol/L (98-107)
[2021-01-05 18:07] LABS: ALT 24 U/L (4-34); AST 27 U/L (14-36); African American GFR (CKD) >90 (>60 ml/min/1.73 sqM); Albumin 4.1 g/dL (3.5-5.0); Alkaline Phosphatase 136 U/L (38-126); Anion Gap 9 mmol/L; Blood Urea Nitrogen 14 mg/dL (7-17); Calcium 9.3 mg/dL (8.4-10.2); Carbon Dioxide 24 mmol/L (22-30); Glucose 115 mg/dL (74-99); Magnesium 1.8 mg/dL (1.6-2.3); Non-African American GFR(CKD) >90 (>60 ml/min/1.73 sqM); Potassium 4.2 mmol/L (3.5-5.1); Sodium 138 mmol/L (137-145); Total Bilirubin 0.4 mg/dL (0.2-1.3); Total Protein 7.5 g/dL (6.3-8.2)
[2021-01-05 18:08] LABS: INR 0.9 (<1.2)
[2021-01-05 18:16] LABS: Partial Thromboplastin Time 18.6 sec (22.0-30.0)
--- NOTE | 2021-01-05 18:51 | CT ---
EXAMINATION TYPE: CT brain wo con DATE OF EXAM: 01/05/2021 HISTORY: Nausea, vomiting and dizziness.. CT DLP: 1066.4 mGycm. Automated Exposure Control for Dose Reduction was Utilized. TECHNIQUE: CT scan of the head is performed without contrast. COMPARISON: None FINDINGS: There is no acute intracranial hemorrhage, midline shift, or mass effect identified. There is a right frontal approach ventriculostomy catheter, which crosses midline and the distal tip is in the medial left lateral ventricle. No ventriculomegaly. No abnormal extra-axial fluid collection. No depressed calvarial fracture. Visualized sinuses and mastoid air cells are clear. IMPRESSION: 1. No acute intracranial hemorrhage, midline shift, or mass effect. 2. Right frontal ventriculostomy catheter with distal tip in the left lateral ventricle. No ventricul omegaly.
[2021-01-05] MEDS ORDERED: ONDANSETRON 4 MG ODT STARTER PACK 2 TAB BTL PO STA (19:04)
[2021-01-05 19:27] VITALS: BP 132/74; PULSE 70; TEMP 97.7
== END 2021-01-05 19:27 | disposition home or self-care (01) ==
LOC: EC 16:38
DX: R42 Dizziness and giddiness (principal); I10 Essential (primary) hypertension; I25.10 Atherosclerotic heart disease of native coronary artery without angina pectoris; E78.5 Hyperlipidemia, unspecified; I25.2 Old myocardial infarction; F17.200 Nicotine dependence, unspecified, uncomplicated; Z88.0 Allergy status to penicillin; Z88.5 Allergy status to narcotic agent; Z88.7 Allergy status to serum and vaccine; Z85.3 Personal history of malignant neoplasm of breast; Z79.02 Long term (current) use of antithrombotics/antiplatelets; Z95.5 Presence of coronary angioplasty implant and graft; Z98.2 Presence of cerebrospinal fluid drainage device
CPT/HCPCS: 99284; 96374; 96361; 36415; 93005; 80053; 83735; 84484; 85025; 85610; 85730; 70450; J3360; S0119

== ENCOUNTER 2021-11-06 10:33 | Emergency (ER) | payer MEDICARE ==
[2021-11-06 10:38] VITALS: BP 131/74; PULSE 72; RESP 18; TEMP 97.9
[2021-11-06] MEDS ORDERED: SODIUM CHLORIDE 0.9% 1,000 ML IV STA (11:34)
--- NOTE | 2021-11-06 11:44 | ED ---
General Adult HPI - General Chief complaint: Abdominal Pain Stated complaint: Abd pain,nausea Time Seen by Provider: 11/06/21 11:17 Source: patient, RN notes reviewed, old records reviewed Mode of arrival: ambulatory Limitations: no limitations - History of Present Illness Initial comments: 66-year-old female presenting for evaluation of diarrhea and increased fatigue. Patient has had symptoms for almost one week. She was seen at urgent care several days prior and started on metronidazole. She has some persistent nausea and diarrhea. She states the diarrhea had improved yesterday but today returned. She denies any blood in her diarrhea. No measured fever but she has had subjective fever and chills. No vomiting. No upper abdominal pain. She has some bilateral lower abdominal pain associated with her symptoms. - Related Data Home Medications Medication Instructions Recorded Confirmed Atorvastatin [Lipitor] 10 mg PO HS 12/07/19 12/07/19 Clopidogrel [Plavix] 75 mg PO HS 12/07/19 12/07/19 Levothyroxine Sodium [Synthroid] 100 mcg PO DAILY 12/07/19 12/07/19 Losartan/Hydrochlorothiazide 1 tab PO DAILY 12/07/19 12/07/19 [Losartan-Hctz 50-12.5 mg Tab] Metoprolol Succinate [Toprol XL] 50 mg PO DAILY 12/07/19 12/07/19 Omeprazole [PriLOSEC] 20 mg PO BID 12/07/19 12/07/19 Albuterol Inhaler [Ventolin Hfa 2 puff INHALATION RT-QID PRN 12/08/19 12/08/19 Inhaler] Previous Rx's Medication Instructions Recorded Ciprofloxacin HCl 500 mg PO BID 3 Days #6 tab 12/12/19 metroNIDAZOLE [Flagyl] 500 mg PO TID 3 Days #9 tab 12/12/19 Meclizine [Antivert] 25 mg PO TID #20 tab 01/05/21 Ondansetron Odt [Zofran Odt] 4 mg PO Q8HR PRN #10 tab 11/06/21 Allergies Allergy/AdvReac Type Severity Reaction Status Date / Time amoxicillin Allergy Rash/Hives Verified 11/06/21 10:39 influenza virus vaccine, Allergy Rash/Hives Verified 11/06/21 10:39 specific Tetracyclines Allergy Rash/Hives Verified 11/06/21 10:39 codeine AdvReac SYNCOPE Verified 11/06/21 10:39 Review of Systems ROS Statement: Those systems with pertinent positive or pertinent negative responses have been documented in the HPI. ROS Other: All systems not noted in ROS Statement are negative. Past Medical History Past Medical History: Coronary Artery Disease (CAD), Cancer, Hyperlipidemia, Hypertension, Myocardial Infarction ([place]) Additional Past Medical History / Comment(s): hepatits as a child, latent TB at 31 years old, breast cancer, benign intracranial hypertension. 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 Past Anesthesia/Blood Transfusion Reactions: No Reported Reaction Past Psychological History: No Psychological Hx Reported Smoking Status: Current every day smoker Past Alcohol Use History: None Reported Past Drug Use History: None Reported - Past Family History Father Family Medical History: Cancer Mother Family Medical History: Cancer General Exam Limitations: no limitations General appearance: alert, in no apparent distress Head exam: Present: atraumatic, normocephalic Eye exam: Present: normal appearance, PERRL ENT exam: Present: normal exam Neck exam: Present: normal inspection Respiratory exam: Present: normal lung sounds bilaterally. Absent: respiratory distress, wheezes Cardiovascular Exam: Present: regular rate, normal rhythm GI/Abdominal exam: Present: soft, tenderness (Mild bilateral lower abdominal). Absent: distended Extremities exam: Present: normal inspection, normal capillary refill Back exam: Present: normal inspection Neurological exam: Present: alert, oriented X3, CN II-XII intact. Absent: motor sensory deficit Psychiatric exam: Present: normal affect, normal mood Skin exam: Present: warm, dry, intact. Absent: cyanosis, diaphoretic Course Vital Signs 11/06/21 10:35 Temperature 97.9 F Pulse Rate 72 Respiratory 18 Rate Blood Pressure 131/74 O2 Sat by Pulse 95 Oximetry Medical Decision Making - Medical Decision Making 66-year-old female with diarrheal illness. Given the duration of symptoms I did perform laboratory testing, normal CBC, normal CMP, negative urinalysis. There is no stool available while in the emergency department for further testing. Patient given IV fluids and feeling better. She's given strict return parameters and she'll follow-up with her primary care physician. - Lab Data Result diagrams: 11/06/21 11:55 11/06/21 12:34 Lab Results 11/06/21 11/06/21 11/06/21 Range/Units 11:55 11:55 12:10 WBC 8.7 (3.8-10.6) k/uL RBC 3.97 (3.80-5.40) m/uL Hgb 12.9 (11.4-16.0) gm/dL Hct 38.0 (34.0-46.0) % MCV 95.9 (80.0-100.0) fL MCH 32.5 (25.0-35.0) pg MCHC 33.9 (31.0-37.0) g/dL RDW 13.3 (11.5-15.5) % Plt Count 310 (150-450) k/uL MPV 7.8 Neutrophils % 74 % Lymphocytes % 14 % Monocytes % 6 % Eosinophils % 2 % Basophils % 1 % Neutrophils # 6.5 (1.3-7.7) k/uL Lymphocytes # 1.3 (1.0-4.8) k/uL Monocytes # 0.5 (0-1.0) k/uL Eosinophils # 0.1 (0-0.7) k/uL Basophils # 0.1 (0-0.2) k/uL PT 11.0 (9.0-12.0) sec INR 1.0 (<1.2) APTT 23.8 (22.0-30.0) sec Sodium (137-145) mmol/L Potassium (3.5-5.1) mmol/L Chloride (98-107) mmol/L Carbon Dioxide (22-30) mmol/L Anion Gap mmol/L BUN (7-17) mg/dL Creatinine (0.52-1.04) mg/dL Est GFR (CKD-EPI)AfAm (>60 ml/min/1.73 sqM) Est GFR (CKD-EPI)NonAf (>60 ml/min/1.73 sqM) Glucose (74-99) mg/dL Calcium (8.4-10.2) mg/dL Total Bilirubin (0.2-1.3) mg/dL AST (14-36) U/L ALT (4-34) U/L Alkaline Phosphatase (38-126) U/L Total Protein (6.3-8.2) g/dL Albumin (3.5-5.0) g/dL Amylase (30-110) U/L Lipase (23-300) U/L Urine Color Light Yellow Urine Appearance Clear (Clear) Urine pH 5.5 (5.0-8.0) Ur Specific [place] 1.008 (1.001-1.035) Urine Protein Negative (Negative) Urine Glucose (UA) Negative (Negative) Urine Ketones Negative (Negative) Urine Blood Negative (Negative) Urine Nitrite Negative (Negative) Urine Bilirubin Negative (Negative) Urine Urobilinogen <2.0 (<2.0) mg/dL Ur Leukocyte Esterase Trace H (Negative) Urine RBC <1 (0-5) /hpf Urine WBC 1 (0-5) /hpf Ur Squamous Epith Cells 1 (0-4) /hpf Urine Bacteria Rare H (None) /hpf Urine Mucus Rare H (None) /hpf 11/06/21 Range/Units 12:34 WBC (3.8-10.6) k/uL RBC (3.80-5.40) m/uL Hgb (11.4-16.0) gm/dL Hct (34.0-46.0) % MCV (80.0-100.0) fL MCH (25.0-35.0) pg MCHC (31.0-37.0) g/dL RDW (11.5-15.5) % Plt Count (150-450) k/uL MPV Neutrophils % % Lymphocytes % % Monocytes % % Eosinophils % % Basophils % % Neutrophils # (1.3-7.7) k/uL Lymphocytes # (1.0-4.8) k/uL Monocytes # (0-1.0) k/uL Eosinophils # (0-0.7) k/uL Basophils # (0-0.2) k/uL PT (9.0-12.0) sec INR (<1.2) APTT (22.0-30.0) sec Sodium 136 L (137-145) mmol/L Potassium 4.1 (3.5-5.1) mmol/L Chloride 102 (98-107) mmol/L Carbon Dioxide 28 (22-30) mmol/L Anion Gap 6 mmol/L BUN 6 L (7-17) mg/dL Creatinine 0.48 L (0.52-1.04) mg/dL Est GFR (CKD-EPI)AfAm >90 (>60 ml/min/1.73 sqM) Est GFR (CKD-EPI)NonAf >90 (>60 ml/min/1.73 sqM) Glucose 92 (74-99) mg/dL Calcium 8.6 (8.4-10.2) mg/dL Total Bilirubin 0.4 (0.2-1.3) mg/dL AST 33 (14-36) U/L ALT 23 (4-34) U/L Alkaline Phosphatase 123 (38-126) U/L Total Protein 6.7 (6.3-8.2) g/dL Albumin 3.7 (3.5-5.0) g/dL Amylase 47 (30-110) U/L Lipase 76 (23-300) U/L Urine Color Urine Appearance (Clear) Urine pH (5.0-8.0) Ur Specific [place] (1.001-1.035) Urine Protein (Negative) Urine Glucose (UA) (Negative) Urine Ketones (Negative) Urine Blood (Negative) Urine Nitrite (Negative) Urine Bilirubin (Negative) Urine Urobilinogen (<2.0) mg/dL Ur Leukocyte Esterase (Negative) Urine RBC (0-5) /hpf Urine WBC (0-5) /hpf Ur Squamous Epith Cells (0-4) /hpf Urine Bacteria (None) /hpf Urine Mucus (None) /hpf Disposition Clinical Impression: Diarrhea Disposition: HOME SELF-CARE Condition: Good Instructions (If sedation given, give patient instructions): Acute Diarrhea (ED) Prescriptions: Ondansetron Odt [Zofran Odt] 4 mg PO Q8HR PRN #10 tab PRN Reason: Vomiting Is patient prescribed a controlled substance at d/c from ED?: No Referrals: Jovon Mejía DO [Primary Care Provider] - 1-2 days Time of Disposition: 13:40
[2021-11-06 12:09] LABS: Basophils # (A) 0.1 k/uL (0-0.2); Basophils % (A) 1 %; Eosinophils # (A) 0.1 k/uL (0-0.7); Eosinophils % (A) 2 %; HGB 12.9 gm/dL (11.4-16.0); Lymphocytes # (A) 1.3 k/uL (1.0-4.8); Lymphocytes % (A) 14 %; MCH 32.5 pg (25.0-35.0); MCHC 33.9 g/dL (31.0-37.0); MCV 95.9 fL (80.0-100.0); Mean Platelet Volume 7.8; Monocytes # (A) 0.5 k/uL (0-1.0); Monocytes % (A) 6 %; Neutrophils # (A) 6.5 k/uL (1.3-7.7); Neutrophils % (A) 74 %; Platelet Count 310 k/uL (150-450); RBC 3.97 m/uL (3.80-5.40); RDW 13.3 % (11.5-15.5); WBC 8.7 k/uL (3.8-10.6)
[2021-11-06 12:37] LABS: Partial Thromboplastin Time 23.8 sec (22.0-30.0)
[2021-11-06 12:59] LABS: Appearance,Urine Clear (Clear); Bacteria,Urine Rare /hpf; Bilirubin,Urine Negative (Negative); Blood,Urine Negative (Negative); Color,Urine Light Yellow; Glucose,Urine (UA) Negative (Negative); Ketones,Urine Negative (Negative); Leukocyte Esterase,Urine Trace (Negative); Mucus,Urine Rare /hpf; Nitrite,Urine Negative (Negative); PH, Urine 5.5 (5.0-8.0); Protein,Urine Negative (Negative); RBC,Urine <1 /hpf (0-5); Specific Gravity,Urine 1.008 (1.001-1.035); Squamous Epithelial Cell,Urine 1 /hpf (0-4); Urobilinogen,Urine <2.0 mg/dL (<2.0); WBC,Urine 1 /hpf (0-5)
[2021-11-06 13:16] LABS: ALT 23 U/L (4-34); AST 33 U/L (14-36); African American GFR (CKD) >90 (>60 ml/min/1.73 sqM); Albumin 3.7 g/dL (3.5-5.0); Alkaline Phosphatase 123 U/L (38-126); Amylase 47 U/L (30-110); Anion Gap 6 mmol/L; Blood Urea Nitrogen 6 mg/dL (7-17); Calcium 8.6 mg/dL (8.4-10.2); Carbon Dioxide 28 mmol/L (22-30); Chloride 102 mmol/L (98-107); Glucose 92 mg/dL (74-99); Lipase 76 U/L (23-300); Non-African American GFR(CKD) >90 (>60 ml/min/1.73 sqM); Potassium 4.1 mmol/L (3.5-5.1); Sodium 136 mmol/L (137-145); Total Bilirubin 0.4 mg/dL (0.2-1.3); Total Protein 6.7 g/dL (6.3-8.2)
== END 2021-11-06 15:04 | disposition home or self-care (01) ==
LOC: EC 10:33
DX: R19.7 Diarrhea, unspecified (principal); E78.5 Hyperlipidemia, unspecified; I10 Essential (primary) hypertension; F17.200 Nicotine dependence, unspecified, uncomplicated; Z88.0 Allergy status to penicillin; Z88.7 Allergy status to serum and vaccine; Z88.1 Allergy status to other antibiotic agents
CPT/HCPCS: 36415; 80053; 81001; 82150; 83690; 85025; 85610; 85730; 96360; 96361; 99284

== ENCOUNTER 2021-11-08 04:19 | Emergency (ER) | payer MEDICARE ==
[2021-11-08 04:28] VITALS: TEMP 98.3
[2021-11-08 05:43] LABS: Basophils # (A) 0.2 k/uL (0-0.2); Basophils % (A) 2 %; Eosinophils # (A) 0.1 k/uL (0-0.7); Eosinophils % (A) 1 %; HCT 41.1 % (34.0-46.0); HGB 12.9 gm/dL (11.4-16.0); Lymphocytes # (A) 2.5 k/uL (1.0-4.8); Lymphocytes % (A) 20 %; MCHC 31.3 g/dL (31.0-37.0); MCV 95.9 fL (80.0-100.0); Mean Platelet Volume 7.8; Monocytes # (A) 1.1 k/uL (0-1.0); Monocytes % (A) 9 %; Neutrophils # (A) 8.2 k/uL (1.3-7.7); Neutrophils % (A) 65 %; Platelet Count 318 k/uL (150-450); RBC 4.29 m/uL (3.80-5.40); RDW 12.9 % (11.5-15.5); WBC 12.5 k/uL (3.8-10.6)
--- NOTE | 2021-11-08 05:44 | XR ---
EXAMINATION TYPE: XR chest 2V DATE OF EXAM: 11/08/2021 COMPARISON: Chest x-ray December 11, 2019 HISTORY: Difficulty in breathing. TECHNIQUE: Frontal and lateral views of the chest are obtained. FINDINGS: Tubular device could reflect right internal jugular central venous catheter terminating in SVC. There is chronic parenchymal change without suspicious focal air space opacity, pleural effusio n, or pneumothorax seen. Mild cardiomegaly is redemonstrated. The osseous structures are intact. IMPRESSION: Chronic parenchymal changes and mild cardiomegaly without acute pulmonary process.
[2021-11-08 05:56] LABS: ALT 28 U/L (4-34); AST 36 U/L (14-36); African American GFR (CKD) >90 (>60 ml/min/1.73 sqM); Alkaline Phosphatase 129 U/L (38-126); Anion Gap 5 mmol/L; Blood Urea Nitrogen 7 mg/dL (7-17); Calcium 8.4 mg/dL (8.4-10.2); Carbon Dioxide 29 mmol/L (22-30); Chloride 106 mmol/L (98-107); Glucose 96 mg/dL (74-99); Non-African American GFR(CKD) >90 (>60 ml/min/1.73 sqM); Potassium 3.9 mmol/L (3.5-5.1); Sodium 140 mmol/L (137-145); Total Bilirubin 0.2 mg/dL (0.2-1.3); Total Protein 7.3 g/dL (6.3-8.2)
[2021-11-08 05:57] LABS: INR 0.9 (<1.2); Partial Thromboplastin Time 22.1 sec (22.0-30.0); Prothrombin Time 10.1 sec (9.0-12.0)
[2021-11-08] MEDS ORDERED: IPRATROPIUM-ALBUTEROL 3 ML NEB INHALATION STA (06:14)
[2021-11-08] MEDS ORDERED: ALBUTEROL NEBULIZED 2.5 MG/3 ML INHALATION STA (06:14)
--- NOTE | 2021-11-08 07:55 | ED ---
SOB HPI - General Chief Complaint: Shortness of Breath Stated Complaint: MANNY Time Seen by Provider: 11/08/21 05:12 Source: EMS Mode of arrival: EMS Limitations: no limitations - History of Present Illness MD Complaint: shortness of breath, cough -: hour(s) Consistency: constant Improves With: nothing Worsens With: nothing Known History Of: COPD Associated Symptoms: cough Treatments Prior to Arrival: oxygen, bronchodilator, other (Steroid) - Related Data Home Medications Medication Instructions Recorded Confirmed Atorvastatin [Lipitor] 10 mg PO HS 12/07/19 12/07/19 Clopidogrel [Plavix] 75 mg PO HS 12/07/19 12/07/19 Levothyroxine Sodium [Synthroid] 100 mcg PO DAILY 12/07/19 12/07/19 Losartan/Hydrochlorothiazide 1 tab PO DAILY 12/07/19 12/07/19 [Losartan-Hctz 50-12.5 mg Tab] Metoprolol Succinate [Toprol XL] 50 mg PO DAILY 12/07/19 12/07/19 Omeprazole [PriLOSEC] 20 mg PO BID 12/07/19 12/07/19 Albuterol Inhaler [Ventolin Hfa 2 puff INHALATION RT-QID PRN 12/08/19 12/08/19 Inhaler] Previous Rx's Medication Instructions Recorded Ciprofloxacin HCl 500 mg PO BID 3 Days #6 tab 12/12/19 metroNIDAZOLE [Flagyl] 500 mg PO TID 3 Days #9 tab 12/12/19 Meclizine [Antivert] 25 mg PO TID #20 tab 01/05/21 Ondansetron Odt [Zofran Odt] 4 mg PO Q8HR PRN #10 tab 11/06/21 Albuterol Inhaler [Ventolin Hfa 2 puff INHALATION Q4HR PRN #8 gm 11/08/21 Inhaler] Allergies Allergy/AdvReac Type Severity Reaction Status Date / Time amoxicillin Allergy Rash/Hives Verified 11/08/21 04:27 influenza virus vaccine, Allergy Rash/Hives Verified 11/08/21 04:27 specific Tetracyclines Allergy Rash/Hives Verified 11/08/21 04:27 codeine AdvReac SYNCOPE Verified 11/08/21 04:27 Review of Systems ROS Statement: Those systems with pertinent positive or pertinent negative responses have been documented in the HPI. ROS Other: All systems not noted in ROS Statement are negative. Constitutional: Denies: fever, chills Respiratory: Reports: cough, dyspnea, wheezes Cardiovascular: Denies: chest pain, palpitations, edema Gastrointestinal: Denies: abdominal pain, vomiting, diarrhea Genitourinary: Denies: dysuria, hematuria Musculoskeletal: Denies: back pain Skin: Denies: rash Neurological: Denies: headache, weakness Past Medical History Past Medical History: Coronary Artery Disease (CAD), Cancer, Hyperlipidemia, Hypertension, Myocardial Infarction ([place]) Additional Past Medical History / Comment(s): hepatits as a child, latent TB at 31 years old, breast cancer, benign intracranial hypertension. Last Myocardial Infarction Date:: 2006 History of Any Multi-Drug Resistant Organisms: None Reported Past Surgical History: No Surgical Hx Reported Additional Past Surgical History / Comment(s): heart stents x2, partial left mastectomy, [employer] shunt. Past Anesthesia/Blood Transfusion Reactions: No Reported Reaction Past Psychological History: No Psychological Hx Reported Smoking Status: Current every day smoker Past Alcohol Use History: None Reported Past Drug Use History: None Reported - Past Family History Father Family Medical History: Cancer Mother Family Medical History: Cancer General Exam Limitations: no limitations General appearance: alert, in no apparent distress Head exam: Present: atraumatic, normocephalic Eye exam: Present: normal appearance. Absent: scleral icterus, conjunctival injection Neck exam: Present: normal inspection Respiratory exam: Present: wheezes. Absent: respiratory distress, rales, rhonchi, stridor Cardiovascular Exam: Present: regular rate, normal rhythm, normal heart sounds. Absent: systolic murmur, diastolic murmur, rubs, gallop GI/Abdominal exam: Present: soft. Absent: distended, tenderness, guarding, rebound, rigid, mass Extremities exam: Present: normal inspection, normal capillary refill. Absent: pedal edema, calf tenderness Back exam: Present: normal inspection. Absent: CVA tenderness (R), CVA tenderness (L) Neurological exam: Present: alert Skin exam: Present: warm, dry, intact, normal color. Absent: rash Course Vital Signs 11/08/21 11/08/21 11/08/21 04:20 06:18 06:38 Temperature 98.3 F Pulse Rate 76 77 80 Respiratory 20 20 Rate Blood Pressure 121/99 O2 Sat by Pulse 95 96 Oximetry Medical Decision Making - Lab Data Result diagrams: 11/08/21 04:44 11/08/21 04:44 Lab Results 11/08/21 11/08/21 11/08/21 Range/Units 04:44 04:44 04:44 WBC 12.5 H (3.8-10.6) k/uL RBC 4.29 (3.80-5.40) m/uL Hgb 12.9 (11.4-16.0) gm/dL Hct 41.1 (34.0-46.0) % MCV 95.9 (80.0-100.0) fL MCH 30.0 (25.0-35.0) pg MCHC 31.3 (31.0-37.0) g/dL RDW 12.9 (11.5-15.5) % Plt Count 318 (150-450) k/uL MPV 7.8 Neutrophils % 65 % Lymphocytes % 20 % Monocytes % 9 % Eosinophils % 1 % Basophils % 2 % Neutrophils # 8.2 H (1.3-7.7) k/uL Lymphocytes # 2.5 (1.0-4.8) k/uL Monocytes # 1.1 H (0-1.0) k/uL Eosinophils # 0.1 (0-0.7) k/uL Basophils # 0.2 (0-0.2) k/uL PT 10.1 (9.0-12.0) sec INR 0.9 (<1.2) APTT 22.1 (22.0-30.0) sec Sodium 140 (137-145) mmol/L Potassium 3.9 (3.5-5.1) mmol/L Chloride 106 (98-107) mmol/L Carbon Dioxide 29 (22-30) mmol/L Anion Gap 5 mmol/L BUN 7 (7-17) mg/dL Creatinine 0.53 (0.52-1.04) mg/dL Est GFR (CKD-EPI)AfAm >90 (>60 ml/min/1.73 sqM) Est GFR (CKD-EPI)NonAf >90 (>60 ml/min/1.73 sqM) Glucose 96 (74-99) mg/dL Plasma Lactic Acid Derrick (0.7-2.0) mmol/L Calcium 8.4 (8.4-10.2) mg/dL Total Bilirubin 0.2 (0.2-1.3) mg/dL AST 36 (14-36) U/L ALT 28 (4-34) U/L Alkaline Phosphatase 129 H (38-126) U/L Troponin I (0.000-0.034) ng/mL NT-Pro-B Natriuret Pep pg/mL Total Protein 7.3 (6.3-8.2) g/dL Albumin 4.0 (3.5-5.0) g/dL 11/08/21 11/08/21 11/08/21 Range/Units 04:44 04:44 04:44 WBC (3.8-10.6) k/uL RBC (3.80-5.40) m/uL Hgb (11.4-16.0) gm/dL Hct (34.0-46.0) % MCV (80.0-100.0) fL MCH (25.0-35.0) pg MCHC (31.0-37.0) g/dL RDW (11.5-15.5) % Plt Count (150-450) k/uL MPV Neutrophils % % Lymphocytes % % Monocytes % % Eosinophils % % Basophils % % Neutrophils # (1.3-7.7) k/uL Lymphocytes # (1.0-4.8) k/uL Monocytes # (0-1.0) k/uL Eosinophils # (0-0.7) k/uL Basophils # (0-0.2) k/uL PT (9.0-12.0) sec INR (<1.2) APTT (22.0-30.0) sec Sodium (137-145) mmol/L Potassium (3.5-5.1) mmol/L Chloride (98-107) mmol/L Carbon Dioxide (22-30) mmol/L Anion Gap mmol/L BUN (7-17) mg/dL Creatinine (0.52-1.04) mg/dL Est GFR (CKD-EPI)AfAm (>60 ml/min/1.73 sqM) Est GFR (CKD-EPI)NonAf (>60 ml/min/1.73 sqM) Glucose (74-99) mg/dL Plasma Lactic Acid Derrick 1.1 (0.7-2.0) mmol/L Calcium (8.4-10.2) mg/dL Total Bilirubin (0.2-1.3) mg/dL AST (14-36) U/L ALT (4-34) U/L Alkaline Phosphatase (38-126) U/L Troponin I <0.012 (0.000-0.034) ng/mL NT-Pro-B Natriuret Pep 357 pg/mL Total Protein (6.3-8.2) g/dL Albumin (3.5-5.0) g/dL Disposition Clinical Impression: COPD exacerbation Disposition: HOME SELF-CARE Condition: Good Instructions (If sedation given, give patient instructions): COPD (Chronic Obstructive Pulmonary Disease) (ED) Prescriptions: Albuterol Inhaler [Ventolin Hfa Inhaler] 2 puff INHALATION Q4HR PRN #8 gm PRN Reason: Wheezing Is patient prescribed a controlled substance at d/c from ED?: No Referrals: Jovon Mejía DO [Primary Care Provider] - 1-2 days
[2021-11-08] MEDS ORDERED: FUROSEMIDE 10 MG/ML 2 ML VIAL IV STA (07:58)
[2021-11-08 08:31] VITALS: BP 118/89; PULSE 81; RESP 18
== END 2021-11-08 08:41 | disposition home or self-care (01) ==
LOC: EC 04:19
DX: J44.1 Chronic obstructive pulmonary disease with (acute) exacerbation (principal); I10 Essential (primary) hypertension; I25.2 Old myocardial infarction; I25.10 Atherosclerotic heart disease of native coronary artery without angina pectoris; E78.5 Hyperlipidemia, unspecified; F17.200 Nicotine dependence, unspecified, uncomplicated; Z79.51 Long term (current) use of inhaled steroids; Z79.02 Long term (current) use of antithrombotics/antiplatelets; Z79.890 Hormone replacement therapy; Z79.899 Other long term (current) drug therapy
CPT/HCPCS: 36415; 94640; 93005; 83880; 80053; 83605; 84484; 85025; 85610; 85730; 71046; 99285; 96374; J1940

== ENCOUNTER 2022-03-05 17:44 | Emergency (ER) | payer MEDICARE ==
[2022-03-05 20:06] VITALS: TEMP 98.2
[2022-03-05] MEDS ORDERED: ORPHENADRINE 30 MG/ML 2 ML VIAL IVP STA (20:10)
[2022-03-05] MEDS ORDERED: SODIUM CHLORIDE 0.9% 1,000 ML IV ONE (20:10)
--- NOTE | 2022-03-05 20:17 | ED ---
General Adult HPI - General Chief complaint: Extremity Problem,Nontraumatic Stated complaint: leg cramp, covid + Time Seen by Provider: 03/05/22 20:01 Source: patient Mode of arrival: ambulatory Limitations: no limitations - History of Present Illness Initial comments: Patient is a 67-year-old female presenting with chief complaint of leg cramping. Patient states that for the last 3 days she has had leg cramping to the left calf. Cramping is worse at rest, improved with exertion. Patient tested positive for Covid about one week ago. She denies any difficulty breathing, chest pain, leg swelling, vomiting, abdominal pain, dizziness, fever, chills, numbness, tingling, discoloration, palpitations, weakness. - Related Data Home Medications Medication Instructions Recorded Confirmed Atorvastatin [Lipitor] 10 mg PO HS 12/07/19 12/07/19 Clopidogrel [Plavix] 75 mg PO HS 12/07/19 12/07/19 Levothyroxine Sodium [Synthroid] 100 mcg PO DAILY 12/07/19 12/07/19 Losartan/Hydrochlorothiazide 1 tab PO DAILY 12/07/19 12/07/19 [Losartan-Hctz 50-12.5 mg Tab] Metoprolol Succinate [Toprol XL] 50 mg PO DAILY 12/07/19 12/07/19 Omeprazole [PriLOSEC] 20 mg PO BID 12/07/19 12/07/19 Albuterol Inhaler [Ventolin Hfa 2 puff INHALATION RT-QID PRN 12/08/19 12/08/19 Inhaler] Previous Rx's Medication Instructions Recorded Ciprofloxacin HCl 500 mg PO BID 3 Days #6 tab 12/12/19 metroNIDAZOLE [Flagyl] 500 mg PO TID 3 Days #9 tab 12/12/19 Meclizine [Antivert] 25 mg PO TID #20 tab 01/05/21 Ondansetron Odt [Zofran Odt] 4 mg PO Q8HR PRN #10 tab 11/06/21 Albuterol Inhaler [Ventolin Hfa 2 puff INHALATION Q4HR PRN #8 gm 11/08/21 Inhaler] Allergies Allergy/AdvReac Type Severity Reaction Status Date / Time amoxicillin Allergy Rash/Hives Verified 11/08/21 04:27 influenza virus vaccine, Allergy Rash/Hives Verified 11/08/21 04:27 specific Tetracyclines Allergy Rash/Hives Verified 11/08/21 04:27 codeine AdvReac SYNCOPE Verified 11/08/21 04:27 Review of Systems ROS Statement: Those systems with pertinent positive or pertinent negative responses have been documented in the HPI. ROS Other: All systems not noted in ROS Statement are negative. Past Medical History Past Medical History: Coronary Artery Disease (CAD), Cancer, Hyperlipidemia, Hypertension, Myocardial Infarction ([place]) Additional Past Medical History / Comment(s): hepatits as a child, latent TB at 31 years old, breast cancer, benign intracranial hypertension. Last Myocardial Infarction Date:: 2006 History of Any Multi-Drug Resistant Organisms: None Reported Past Surgical History: No Surgical Hx Reported Additional Past Surgical History / Comment(s): heart stents x2, partial left mastectomy, [employer] shunt. Past Anesthesia/Blood Transfusion Reactions: No Reported Reaction Past Psychological History: No Psychological Hx Reported Smoking Status: Current every day smoker Past Alcohol Use History: None Reported Past Drug Use History: None Reported - Past Family History Father Family Medical History: Cancer Mother Family Medical History: Cancer General Exam Limitations: no limitations General appearance: alert, in no apparent distress Head exam: Present: atraumatic, normocephalic, normal inspection Eye exam: Present: normal appearance, PERRL, EOMI. Absent: scleral icterus, conjunctival injection, periorbital swelling Neck exam: Present: normal inspection Respiratory exam: Present: normal lung sounds bilaterally. Absent: respiratory distress, wheezes, rales, rhonchi, stridor Cardiovascular Exam: Present: regular rate, normal rhythm, normal heart sounds. Absent: systolic murmur, diastolic murmur, rubs, gallop, clicks Extremities exam: Present: full ROM, normal capillary refill. Absent: pedal edema Left Neurovascular tendon exam: Present: no vascular compromise (Distal pulses 2+). Absent: pulse deficit, abnormal cap refill, motor deficit, sensory deficit, extremity cold to touch, pallor Neurological exam: Present: alert, oriented X3, CN II-XII intact Psychiatric exam: Present: normal affect, normal mood Skin exam: Present: warm, dry, intact, normal color. Absent: rash Course Vital Signs 03/05/22 03/05/22 03/05/22 18:32 20:04 22:21 Temperature 97.8 F 98.2 F Pulse Rate 77 56 L 62 Respiratory 16 18 15 Rate Blood Pressure 121/74 122/73 123/78 O2 Sat by Pulse 97 91 L 97 Oximetry 03/05/22 23:06 Temperature Pulse Rate 65 Respiratory 15 Rate Blood Pressure 118/77 O2 Sat by Pulse 96 Oximetry Medical Decision Making - Medical Decision Making Patient is a 67-year-old female presenting with chief complaint of cramping to the left lower extremity. Symptoms have been ongoing for the last few days. Patient tested positive for Covid about a week ago. On examination lower extremities are neurovascularly intact. WBC 18.7, likely due to prednisone. Sodium 136, patient is receiving fluids. Magnesium 1.6, patient received 1 g magnesium which may be cheerleading to cramping sensation. UA is negative. Ultrasound is negative for DVT. Patient is educated on these findings and supportive treatment. Follow-up with PCP. Report back to ER with any new or worsening symptoms. Discussed return parameters and answered all questions. Patient conveyed verbal understanding and agreed to the plan. I discussed this case in detail with my attending Dr. Sin - Lab Data Result diagrams: 03/05/22 20:20 03/05/22 20:20 Lab Results 03/05/22 03/05/22 03/05/22 Range/Units 20:20 20:20 20:20 WBC 18.7 H (3.8-10.6) k/uL RBC 4.70 (3.80-5.40) m/uL Hgb 14.9 (11.4-16.0) gm/dL Hct 43.7 (34.0-46.0) % MCV 93.0 (80.0-100.0) fL MCH 31.7 (25.0-35.0) pg MCHC 34.1 (31.0-37.0) g/dL RDW 13.3 (11.5-15.5) % Plt Count 360 (150-450) k/uL MPV 7.8 Neutrophils % 79 % Lymphocytes % 13 % Monocytes % 5 % Eosinophils % 2 % Basophils % 1 % Neutrophils # 14.7 H (1.3-7.7) k/uL Lymphocytes # 2.4 (1.0-4.8) k/uL Monocytes # 1.0 (0-1.0) k/uL Eosinophils # 0.3 (0-0.7) k/uL Basophils # 0.1 (0-0.2) k/uL PT 10.1 (9.0-12.0) sec INR 0.9 (<1.2) APTT 22.4 (22.0-30.0) sec Sodium 136 L (137-145) mmol/L Potassium 4.2 (3.5-5.1) mmol/L Chloride 101 (98-107) mmol/L Carbon Dioxide 28 (22-30) mmol/L Anion Gap 7 mmol/L BUN 17 (7-17) mg/dL Creatinine 0.73 (0.52-1.04) mg/dL Est GFR (CKD-EPI)AfAm >90 (>60 ml/min/1.73 sqM) Est GFR (CKD-EPI)NonAf 86 (>60 ml/min/1.73 sqM) Glucose 106 H (74-99) mg/dL Plasma Lactic Acid Derrick (0.7-2.0) mmol/L Calcium 9.3 (8.4-10.2) mg/dL Phosphorus 4.8 H (2.5-4.5) mg/dL Magnesium 1.6 (1.6-2.3) mg/dL Total Bilirubin 0.6 (0.2-1.3) mg/dL AST 24 (14-36) U/L ALT 34 (4-34) U/L Alkaline Phosphatase 131 H (38-126) U/L Total Protein 7.8 (6.3-8.2) g/dL Albumin 4.6 (3.5-5.0) g/dL Urine Color Urine Appearance (Clear) Urine pH (5.0-8.0) Ur Specific [place] (1.001-1.035) Urine Protein (Negative) Urine Glucose (UA) (Negative) Urine Ketones (Negative) Urine Blood (Negative) Urine Nitrite (Negative) Urine Bilirubin (Negative) Urine Urobilinogen (<2.0) mg/dL Ur Leukocyte Esterase (Negative) 03/05/22 03/05/22 Range/Units 20:20 21:57 WBC (3.8-10.6) k/uL RBC (3.80-5.40) m/uL Hgb (11.4-16.0) gm/dL Hct (34.0-46.0) % MCV (80.0-100.0) fL MCH (25.0-35.0) pg MCHC (31.0-37.0) g/dL RDW (11.5-15.5) % Plt Count (150-450) k/uL MPV Neutrophils % % Lymphocytes % % Monocytes % % Eosinophils % % Basophils % % Neutrophils # (1.3-7.7) k/uL Lymphocytes # (1.0-4.8) k/uL Monocytes # (0-1.0) k/uL Eosinophils # (0-0.7) k/uL Basophils # (0-0.2) k/uL PT (9.0-12.0) sec INR (<1.2) APTT (22.0-30.0) sec Sodium (137-145) mmol/L Potassium (3.5-5.1) mmol/L Chloride (98-107) mmol/L Carbon Dioxide (22-30) mmol/L Anion Gap mmol/L BUN (7-17) mg/dL Creatinine (0.52-1.04) mg/dL Est GFR (CKD-EPI)AfAm (>60 ml/min/1.73 sqM) Est GFR (CKD-EPI)NonAf (>60 ml/min/1.73 sqM) Glucose (74-99) mg/dL Plasma Lactic Acid Derrick 1.0 (0.7-2.0) mmol/L Calcium (8.4-10.2) mg/dL Phosphorus (2.5-4.5) mg/dL Magnesium (1.6-2.3) mg/dL Total Bilirubin (0.2-1.3) mg/dL AST (14-36) U/L ALT (4-34) U/L Alkaline Phosphatase (38-126) U/L Total Protein (6.3-8.2) g/dL Albumin (3.5-5.0) g/dL Urine Color Yellow Urine Appearance Clear (Clear) Urine pH 5.5 (5.0-8.0) Ur Specific [place] 1.016 (1.001-1.035) Urine Protein Negative (Negative) Urine Glucose (UA) Negative (Negative) Urine Ketones Negative (Negative) Urine Blood Negative (Negative) Urine Nitrite Negative (Negative) Urine Bilirubin Negative (Negative) Urine Urobilinogen <2.0 (<2.0) mg/dL Ur Leukocyte Esterase Negative (Negative) Disposition Clinical Impression: Leg cramping Disposition: HOME SELF-CARE Condition: Good Instructions (If sedation given, give patient instructions): Leg Cramps (ED), Hypomagnesemia (ED) Additional Instructions: Follow-up with PCP. Report back to ER with any new or worsening symptoms. Stay well-hydrated. Is patient prescribed a controlled substance at d/c from ED?: No Referrals: Jovon Mejía DO [Primary Care Provider] - 1-2 days
[2022-03-05 20:29] LABS: Basophils # (A) 0.1 k/uL (0-0.2); Basophils % (A) 1 %; Eosinophils # (A) 0.3 k/uL (0-0.7); Eosinophils % (A) 2 %; HCT 43.7 % (34.0-46.0); HGB 14.9 gm/dL (11.4-16.0); Lymphocytes # (A) 2.4 k/uL (1.0-4.8); Lymphocytes % (A) 13 %; MCH 31.7 pg (25.0-35.0); MCHC 34.1 g/dL (31.0-37.0); Mean Platelet Volume 7.8; Monocytes % (A) 5 %; Neutrophils # (A) 14.7 k/uL (1.3-7.7); Neutrophils % (A) 79 %; Platelet Count 360 k/uL (150-450); RDW 13.3 % (11.5-15.5); WBC 18.7 k/uL (3.8-10.6)
--- NOTE | 2022-03-05 20:40 | XR ---
EXAMINATION TYPE: XR chest 2V DATE OF EXAM: 03/05/2022 8:32 PM COMPARISON: Chest radiographs from 11/08/2021, CT brain 01/05/2021. TECHNIQUE: XR chest 2V Frontal and lateral views of the chest. CLINICAL INDICATION:Female, 67 years old with history of covid; FINDINGS: Lungs/Pleura: There is flattening of the diaphragm with increased lucency of the lungs. No evidence o f pneumothorax, pleural effusion or focal consolidation. Calcified granulomas are again seen, in the right midlung. Pulmonary vascularity: Unremarkable. Heart/mediastinum: Cardiomediastinal silhouette is unremarkable. Musculoskeletal: No acute osseous pathology. Similar right proximal humerus lesion dating back to at least 2019 which could represent bone infarct. Other findings: None Lines/Tubes: Ventriculoperitoneal shunt tubing noted along the right aspect of the radiograph just off midline ter minating near the heart. IMPRESSION: 1. No acute cardiopulmonary disease process. 2. COPD changes.
[2022-03-05 20:41] LABS: ALT 34 U/L (4-34); AST 24 U/L (14-36); African American GFR (CKD) >90 (>60 ml/min/1.73 sqM); Albumin 4.6 g/dL (3.5-5.0); Alkaline Phosphatase 131 U/L (38-126); Anion Gap 7 mmol/L; Blood Urea Nitrogen 17 mg/dL (7-17); Calcium 9.3 mg/dL (8.4-10.2); Carbon Dioxide 28 mmol/L (22-30); Chloride 101 mmol/L (98-107); Glucose 106 mg/dL (74-99); Magnesium 1.6 mg/dL (1.6-2.3); Non-African American GFR(CKD) 86 (>60 ml/min/1.73 sqM); Phosphorus 4.8 mg/dL (2.5-4.5); Potassium 4.2 mmol/L (3.5-5.1); Sodium 136 mmol/L (137-145); Total Bilirubin 0.6 mg/dL (0.2-1.3); Total Protein 7.8 g/dL (6.3-8.2)
[2022-03-05 20:44] LABS: INR 0.9 (<1.2); Partial Thromboplastin Time 22.4 sec (22.0-30.0); Prothrombin Time 10.1 sec (9.0-12.0)
--- NOTE | 2022-03-05 21:26 | US ---
EXAMINATION TYPE: US venous doppler duplex LE LT DATE OF EXAM: 03/05/2022 8:10 PM COMPARISON: NONE CLINICAL HISTORY: leg cramps. Left calf cramp x 4 days. COVID +. No hx of DVT, on blood thinners. SIDE PERFORMED: Left TECHNIQUE: The lower extremity deep venous system is examined utilizing real time linear array sonog ben with graded compression, doppler sonography and color-flow sonography. VESSELS IMAGED: Common Femoral Vein Deep Femoral Vein Greater Saphenous Vein * Femoral Vein Popliteal Vein Small Saphenous Vein * Proximal Calf Veins (* superficial vessels) Left Leg: Negative for DVT IMPRESSION: No evidence of deep vein thrombosis in the left leg.
[2022-03-05] MEDS ORDERED: DEXAMETHASONE SOD PHOSPHATE 10 MG/ML 1 ML VIAL IVP STA (21:45)
[2022-03-05] MEDS ORDERED: MAGNESIUM SULFATE-D5W PMX 1 GM in DEXTROSE/WATER 1 100ML.BAG IVPB ONE (22:08)
[2022-03-05 22:13] LABS: Appearance,Urine Clear (Clear); Bilirubin,Urine Negative (Negative); Blood,Urine Negative (Negative); Color,Urine Yellow; Glucose,Urine (UA) Negative (Negative); Ketones,Urine Negative (Negative); Leukocyte Esterase,Urine Negative (Negative); Nitrite,Urine Negative (Negative); PH, Urine 5.5 (5.0-8.0); Protein,Urine Negative (Negative); Specific Gravity,Urine 1.016 (1.001-1.035); Urobilinogen,Urine <2.0 mg/dL (<2.0)
[2022-03-05 22:23] VITALS: RESP 15
[2022-03-05 23:07] VITALS: BP 118/77; PULSE 65
== END 2022-03-05 23:15 | disposition home or self-care (01) ==
LOC: EC 17:44
DX: R25.2 Cramp and spasm (principal); I10 Essential (primary) hypertension; I25.10 Atherosclerotic heart disease of native coronary artery without angina pectoris; E78.5 Hyperlipidemia, unspecified; I25.2 Old myocardial infarction; F17.200 Nicotine dependence, unspecified, uncomplicated; Z79.899 Other long term (current) drug therapy; Z88.0 Allergy status to penicillin; Z88.5 Allergy status to narcotic agent; Z88.7 Allergy status to serum and vaccine
CPT/HCPCS: 36415; 80053; 83605; 83735; 84100; 85025; 85610; 85730; 81003; 71046; 93971; 99284; 96365; 96375; 96361 ×3; J2360; J3475

== ENCOUNTER → 2022-08-08 | Outpatient (CLI) | payer MEDICARE ==
--- NOTE | 2022-08-15 15:11 | MM ---
Reason for Exam: Hx of breast cancer, conservation therapy. Last mammogram was performed 3 year(s) and 9 month(s) ago. Patient History: Menarche at age 11. Postmenopausal. Breast cancer, left, age 45. Tamoxifen, from age 45 until age 51. Lumpectomy on the Left side. Chemotherapy. Radiation Therapy, left. Maternal grandmother had breast cancer at or over age 50. Mother had breast cancer at or over age 50. Prior Study Comparison: 07/24/2016 Bilateral Screening Mammogram, [facility]. 11/26/2018 Bilateral Screening Mammogram, [facility]. Tissue Density: There are scattered fibroglandular densities. Findings: Analyzed By CAD. Pattern appears stable. Left breast is somewhat smaller than the right. Multiple round calcifications are within the left breast. A few scattered calcifications are within the right breast. No significant interval change is evident from available comparison. No suspicious groups of microcalcifications, spiculated or lobular masses, architectural distortion or other secondary signs of malignancy are mammographically apparent. Overall Assessment: Benign, BI-RAD 2 Management: Screening Mammogram of both breasts in 1 year. A negative mammogram report should not preclude additional follow up of suspicious palpable abnormalities. Patient should continue monthly self breast exam. A clinical breast exam by your physician is recommended on an annual basis and results should be correlated with mammographic findings. Electronically signed and approved by: Carlos Trinh D.O. Radiologis
== END | disposition home or self-care (01) ==
LOC: RADMAMWWP 08:17
PROVIDERS: ATTEND Family Medicine
DX: R92.8 Other abnormal and inconclusive findings on diagnostic imaging of breast (principal); Z85.3 Personal history of malignant neoplasm of breast; Z78.0 Asymptomatic menopausal state; Z80.3 Family history of malignant neoplasm of breast
CPT/HCPCS: 77066; G0279; 77062

== ENCOUNTER 2022-08-12 10:36 | Emergency (ER) | payer MEDICARE ==
[2022-08-12] MEDS ORDERED: SODIUM CHLORIDE 0.9% 500 ML 500 ML IV STA (11:11)
[2022-08-12] MEDS ORDERED: MECLIZINE 12.5 MG TAB PO STA (11:11)
[2022-08-12] MEDS ORDERED: METOCLOPRAMIDE 5 MG/ML 2 ML VIAL IVP STA (11:16)
--- NOTE | 2022-08-12 11:24 | ED ---
Dizziness HPI - General Chief Complaint: Dizziness Stated Complaint: vertigo Time Seen by Provider: 08/12/22 11:02 Source: patient, RN notes reviewed Mode of arrival: wheelchair Limitations: no limitations - History of Present Illness Initial Comments: 67-year-old female presents to the emergency department with chief complaint of vertigo. Patient states that she has a history of vertigo once in the past about a year and a half ago. She states this feels the same as last time. Patient reports that it started this morning when she got out of bed. She states that her dizziness is aggravated by head movements and is improved with rest. She did not take anything at home for her dizziness. She also reports that she has been feeling nauseous but has not vomited. She states she had a mild headache this morning which has since resolved. Denies fever, denies chest pain. Denies changes in mental status, changes in speech. - Related Data Home Medications Medication Instructions Recorded Confirmed Atorvastatin [Lipitor] 10 mg PO HS 12/07/19 12/07/19 Clopidogrel [Plavix] 75 mg PO HS 12/07/19 12/07/19 Levothyroxine Sodium [Synthroid] 100 mcg PO DAILY 12/07/19 12/07/19 Losartan/Hydrochlorothiazide 1 tab PO DAILY 12/07/19 12/07/19 [Losartan-Hctz 50-12.5 mg Tab] Metoprolol Succinate [Toprol XL] 50 mg PO DAILY 12/07/19 12/07/19 Omeprazole [PriLOSEC] 20 mg PO BID 12/07/19 12/07/19 Albuterol Inhaler [Ventolin Hfa 2 puff INHALATION RT-QID PRN 12/08/19 12/08/19 Inhaler] Previous Rx's Medication Instructions Recorded Ciprofloxacin HCl 500 mg PO BID 3 Days #6 tab 12/12/19 metroNIDAZOLE [Flagyl] 500 mg PO TID 3 Days #9 tab 12/12/19 Meclizine [Antivert] 25 mg PO TID #20 tab 01/05/21 Ondansetron Odt [Zofran Odt] 4 mg PO Q8HR PRN #10 tab 11/06/21 Albuterol Inhaler [Ventolin Hfa 2 puff INHALATION Q4HR PRN #8 gm 11/08/21 Inhaler] Allergies Allergy/AdvReac Type Severity Reaction Status Date / Time amoxicillin Allergy Rash/Hives Verified 08/12/22 10:42 influenza virus vaccine, Allergy Rash/Hives Verified 08/12/22 10:42 specific Tetracyclines Allergy Rash/Hives Verified 08/12/22 10:42 codeine AdvReac SYNCOPE Verified 08/12/22 10:42 Review of Systems ROS Statement: Those systems with pertinent positive or pertinent negative responses have been documented in the HPI. ROS Other: All systems not noted in ROS Statement are negative. Past Medical History Past Medical History: Coronary Artery Disease (CAD), Cancer, Hyperlipidemia, Hypertension, Myocardial Infarction (DC) Additional Past Medical History / Comment(s): hepatits as a child, latent TB at 31 years old, breast cancer, benign intracranial hypertension. 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 Past Anesthesia/Blood Transfusion Reactions: No Reported Reaction Past Psychological History: No Psychological Hx Reported Smoking Status: Current some day smoker Past Alcohol Use History: None Reported Past Drug Use History: None Reported - Past Family History Father Family Medical History: Cancer Mother Family Medical History: Cancer General Exam Limitations: no limitations General appearance: alert, in no apparent distress Head exam: Present: atraumatic, normocephalic, normal inspection Eye exam: Present: normal appearance, PERRL, EOMI, nystagmus (slight horizontal nystagmus). Absent: scleral icterus, conjunctival injection, periorbital swelling ENT exam: Present: normal exam, mucous membranes moist Neck exam: Present: normal inspection. Absent: tenderness, meningismus, lymphadenopathy Respiratory exam: Present: normal lung sounds bilaterally. Absent: respiratory distress, wheezes, rales, rhonchi, stridor Cardiovascular Exam: Present: regular rate, normal rhythm, normal heart sounds. Absent: systolic murmur, diastolic murmur, rubs, gallop, clicks GI/Abdominal exam: Present: soft, normal bowel sounds. Absent: distended, tenderness, guarding, rebound, rigid Extremities exam: Present: normal inspection, full ROM, normal capillary refill. Absent: tenderness, pedal edema, joint swelling, calf tenderness Neurological exam: Present: alert, oriented X3, CN II-XII intact Expanded Patient oriented to: Present: person, place, time Speech: Present: fluid speech Cranial nerves: EOM's Intact: Normal, Gag Reflex: Normal, Nystagmus: Abnormal Right Cerebellar function: Finger to Nose: Normal, Heel to Cadet: Normal Upper motor neuron: Pronator Drift: Normal, Babinski Sign: Normal Motor strength exam: RUE: 5, LUE: 5, RLE: 5, LLE: 5 Psychiatric exam: Present: normal affect, normal mood Skin exam: Present: warm, dry, intact, normal color. Absent: rash Course Vital Signs 08/12/22 10:38 Temperature 97.5 F L Pulse Rate 86 Respiratory 16 Rate Blood Pressure 125/78 O2 Sat by Pulse 95 Oximetry Medical Decision Making - Medical Decision Making Was pt. sent in by a medical professional or institution (, PA, DIRECTOR OF ACCOUNTS RECEIVABLE, urgent care, hospital, or skilled nursing...) When possible be specific @ -No Did you speak to anyone other than the patient for history (EMS, parent, family, police, friend...)? What history was obtained from this source @ -No Did you review nursing and triage notes (agree or disagree)? Why? @ -I reviewed and agree with nursing and triage notes Were old charts reviewed (outside hosp., previous admission, EMS record, old EKG, old radiological studies, urgent care reports/EKG's, skilled nursing records)? Report findings @ -Prior EKG was compared to EKG obtained today which showed nonspecific changes Differential Diagnosis (chest pain, altered mental status, abdominal pain women, abdominal pain men, vaginal bleeding, weakness, fever, dyspnea, syncope, headac he, dizziness, GI bleed, back pain, seizure, CVA, palpatations, mental health, musculoskeletal)? @ -Differential Dizziness: Benign paroxysmal positional Vertigo, Menieres disease, otitis media, acoustic neuroma, vertebrobasilar insufficiency, cerebellar stroke, encephalitis, hy povolemic, arrhythmia, coronary artery syndrome, anemia, this is not meant to be an all-inclusive list EKG interpreted by me (3pts min.). @ -Sinus rhythm rate 79, [place] 143, QRS 93, QTQTc [id number], nonspecific T-wave changes discussed with Dr. Rasmussen X-rays interpreted by me (1pt min.). @ -Chest x-ray showed mild cardiomegaly and emphysematous change with no acute cardiopulmonary process CT interpreted by me (1pt min.). @ -None done U/S interpreted by me (1pt. min.). @ -None done What testing was considered but not performed or refused? (CT, X-rays, U/S, labs)? Why? @ -None What meds were considered but not given or refused? Why? @ -None Did you discuss the management of the patient with other professionals (professionals i.e. DrRobina, PA, DIRECTOR OF ACCOUNTS RECEIVABLE, lab, RT, psych nurse, medical social consultant, wind up worker, teacher, registration officer, case management social worker)? Give summary @ -No Was smoking cessation discussed for >3mins.? @ -No Was critical care preformed (if so, how long)? @ -No Were there social determinants of health that impacted care today? How? (Homelessness, low income, unemployed, alcoholism, drug addiction, transportation, low edu. Level, literacy, decrease access to med. care, longterm, rehab)? @ -No Was there de-escalation of care discussed even if they declined (Discuss DNR or withdrawal of care, Hospice)? DNR status @ -No What co-morbidities impacted this encounter? (DM, HTN, Smoking, COPD, CAD, Cancer, CVA, ARF, Chemo, Hep., AIDS, mental health diagnosis, sleep apnea, mo rbid obesity)? @ -None Was patient admitted / discharged? Hospital course, mention meds given and route, prescriptions, significant lab abnormalities, going to OR and other pertinent info. @ -Discharge. Patient presented to the emergency department with vertigo she states that she has had in the past and this is similar in character to that. She states this started this morning but she has not taken anything at home. Worse with head movements. No neuro deficits. Patient was administered meclizine 25 mg, Reglan 10 mg which relieved her symptoms. CBC, CMP, UA within normal limits. Chest x-ray showed no acute cardiopulmonary process. Patient discharged in stable condition. Case discussed with my attending, Dr. Rasmussen Undiagnosed new problem with uncertain prognosis? @ -No Drug Therapy requiring intensive monitoring for toxicity (Heparin, Nitro, Insulin, Cardizem)? @ -No Were any procedures done? @ -No Diagnosis/symptom? @ -vertigo Acute, or Chronic, or Acute on Chronic? @ -Acute Uncomplicated (without systemic symptoms) or Complicated (systemic symptoms)? @ -unComplicated Side effects of treatment? @ -No Exacerbation, Progression, or Severe Exacerbation? @ -No Poses a threat to life or bodily function? How? (Chest pain, USA, DC, pneumonia, PE, COPD, DKA, ARF, appy, cholecystitis, CVA, Diverticulitis, Homicidal, Suicidal, threat to staff... and all critical care pts) @ -No - Lab Data Result diagrams: 08/12/22 11:21 08/12/22 11:21 Lab Results 08/12/22 08/12/22 08/12/22 Range/Units 11:21 11:21 11:21 WBC 7.6 (3.8-10.6) k/uL RBC 4.44 (3.80-5.40) m/uL Hgb 14.2 (11.4-16.0) gm/dL Hct 41.4 (34.0-46.0) % MCV 93.2 (80.0-100.0) fL MCH 31.9 (25.0-35.0) pg MCHC 34.2 (31.0-37.0) g/dL RDW 12.8 (11.5-15.5) % Plt Count 301 (150-450) k/uL MPV 7.5 Neutrophils % 73 % Lymphocytes % 15 % Monocytes % 7 % Eosinophils % 1 % Basophils % 0 % Neutrophils # 5.6 (1.3-7.7) k/uL Lymphocytes # 1.1 (1.0-4.8) k/uL Monocytes # 0.5 (0-1.0) k/uL Eosinophils # 0.1 (0-0.7) k/uL Basophils # 0.0 (0-0.2) k/uL Sodium 138 (137-145) mmol/L Potassium 4.7 (3.5-5.1) mmol/L Chloride 102 (98-107) mmol/L Carbon Dioxide 30 (22-30) mmol/L Anion Gap 6 mmol/L BUN 10 (7-17) mg/dL Creatinine 0.46 L (0.52-1.04) mg/dL Est GFR (CKD-EPI)AfAm >90 (>60 ml/min/1.73 sqM) Est GFR (CKD-EPI)NonAf >90 (>60 ml/min/1.73 sqM) Glucose 114 H (74-99) mg/dL Calcium 9.5 (8.4-10.2) mg/dL Total Bilirubin 0.7 (0.2-1.3) mg/dL AST 30 (14-36) U/L ALT 31 (4-34) U/L Alkaline Phosphatase 121 (38-126) U/L Troponin I (0.000-0.034) ng/mL Total Protein 7.7 (6.3-8.2) g/dL Albumin 4.4 (3.5-5.0) g/dL Urine Color Yellow Urine Appearance Clear (Clear) Urine pH 5.5 (5.0-8.0) Ur Specific Gordon 1.014 (1.001-1.035) Urine Protein Negative (Negative) Urine Glucose (UA) Negative (Negative) Urine Ketones Negative (Negative) Urine Blood Negative (Negative) Urine Nitrite Negative (Negative) Urine Bilirubin Negative (Negative) Urine Urobilinogen <2.0 (<2.0) mg/dL Ur Leukocyte Esterase Negative (Negative) 08/12/22 Range/Units 11:21 WBC (3.8-10.6) k/uL RBC (3.80-5.40) m/uL Hgb (11.4-16.0) gm/dL Hct (34.0-46.0) % MCV (80.0-100.0) fL MCH (25.0-35.0) pg MCHC (31.0-37.0) g/dL RDW (11.5-15.5) % Plt Count (150-450) k/uL MPV Neutrophils % % Lymphocytes % % Monocytes % % Eosinophils % % Basophils % % Neutrophils # (1.3-7.7) k/uL Lymphocytes # (1.0-4.8) k/uL Monocytes # (0-1.0) k/uL Eosinophils # (0-0.7) k/uL Basophils # (0-0.2) k/uL Sodium (137-145) mmol/L Potassium (3.5-5.1) mmol/L Chloride (98-107) mmol/L Carbon Dioxide (22-30) mmol/L Anion Gap mmol/L BUN (7-17) mg/dL Creatinine (0.52-1.04) mg/dL Est GFR (CKD-EPI)AfAm (>60 ml/min/1.73 sqM) Est GFR (CKD-EPI)NonAf (>60 ml/min/1.73 sqM) Glucose (74-99) mg/dL Calcium (8.4-10.2) mg/dL Total Bilirubin (0.2-1.3) mg/dL AST (14-36) U/L ALT (4-34) U/L Alkaline Phosphatase (38-126) U/L Troponin I <0.012 (0.000-0.034) ng/mL Total Protein (6.3-8.2) g/dL Albumin (3.5-5.0) g/dL Urine Color Urine Appearance (Clear) Urine pH (5.0-8.0) Ur Specific Gordon (1.001-1.035) Urine Protein (Negative) Urine Glucose (UA) (Negative) Urine Ketones (Negative) Urine Blood (Negative) Urine Nitrite (Negative) Urine Bilirubin (Negative) Urine Urobilinogen (<2.0) mg/dL Ur Leukocyte Esterase (Negative) Disposition Clinical Impression: Benign paroxysmal positional vertigo Disposition: HOME SELF-CARE Condition: Stable Instructions (If sedation given, give patient instructions): Dizziness (ED) Additional Instructions: Please return to the Emergency Department if symptoms worsen or any other concerns. Is patient prescribed a controlled substance at d/c from ED?: No Referrals: Jovon Mejía DO [Primary Care Provider] - 1-2 days Time of Disposition: 13:12
--- NOTE | 2022-08-12 11:55 | XR ---
EXAMINATION TYPE: XR chest 2V DATE OF EXAM: 08/12/2022 COMPARISON: Chest x-ray March 05, 2022 HISTORY: Shortness of breath TECHNIQUE: Frontal and lateral views of the chest are obtained. FINDINGS: Stable right sided overlying ventricular shunt catheter. There is mild underlying emphysem atous change redemonstrated without suspicious focal air space opacity, pleural effusion, or pneumoth orax seen. The cardiac silhouette size is mildly enlarged currently. The osseous structures are de mineralized. Sclerotic lesion right proximal humerus is partially imaged favor chondroid lesion. Stab le subcentimeter calcified nodule lateral right midlung. IMPRESSION: Mild cardiomegaly and chronic emphysematous change without acute pulmonary process.
[2022-08-12 12:04] LABS: Basophils % (A) 0 %; Eosinophils # (A) 0.1 k/uL (0-0.7); Eosinophils % (A) 1 %; HCT 41.4 % (34.0-46.0); HGB 14.2 gm/dL (11.4-16.0); Lymphocytes # (A) 1.1 k/uL (1.0-4.8); Lymphocytes % (A) 15 %; MCH 31.9 pg (25.0-35.0); MCHC 34.2 g/dL (31.0-37.0); MCV 93.2 fL (80.0-100.0); Mean Platelet Volume 7.5; Monocytes # (A) 0.5 k/uL (0-1.0); Monocytes % (A) 7 %; Neutrophils # (A) 5.6 k/uL (1.3-7.7); Neutrophils % (A) 73 %; Platelet Count 301 k/uL (150-450); RBC 4.44 m/uL (3.80-5.40); RDW 12.8 % (11.5-15.5); WBC 7.6 k/uL (3.8-10.6)
[2022-08-12 12:16] LABS: AST 30 U/L (14-36); African American GFR (CKD) >90 (>60 ml/min/1.73 sqM); Albumin 4.4 g/dL (3.5-5.0); Anion Gap 6 mmol/L; Blood Urea Nitrogen 10 mg/dL (7-17); Calcium 9.5 mg/dL (8.4-10.2); Carbon Dioxide 30 mmol/L (22-30); Chloride 102 mmol/L (98-107); Glucose 114 mg/dL (74-99); Non-African American GFR(CKD) >90 (>60 ml/min/1.73 sqM); Sodium 138 mmol/L (137-145); Total Bilirubin 0.7 mg/dL (0.2-1.3); Total Protein 7.7 g/dL (6.3-8.2)
[2022-08-12 12:22] LABS: Appearance,Urine Clear (Clear); Bilirubin,Urine Negative (Negative); Blood,Urine Negative (Negative); Color,Urine Yellow; Glucose,Urine (UA) Negative (Negative); Ketones,Urine Negative (Negative); Leukocyte Esterase,Urine Negative (Negative); Nitrite,Urine Negative (Negative); PH, Urine 5.5 (5.0-8.0); Protein,Urine Negative (Negative); Specific Gravity,Urine 1.014 (1.001-1.035); Urobilinogen,Urine <2.0 mg/dL (<2.0)
[2022-08-12 12:23] LABS: ALT 31 U/L (4-34); Alkaline Phosphatase 121 U/L (38-126); Potassium 4.7 mmol/L (3.5-5.1)
[2022-08-12 13:37] VITALS: BP 124/68; PULSE 71; RESP 18; TEMP 97.4
== END 2022-08-12 13:35 | disposition home or self-care (01) ==
LOC: EC 10:36
DX: H81.10 Benign paroxysmal vertigo, unspecified ear (principal); I25.10 Atherosclerotic heart disease of native coronary artery without angina pectoris; E78.5 Hyperlipidemia, unspecified; I10 Essential (primary) hypertension; I25.2 Old myocardial infarction; F17.200 Nicotine dependence, unspecified, uncomplicated; Z79.899 Other long term (current) drug therapy; Z79.01 Long term (current) use of anticoagulants; Z88.5 Allergy status to narcotic agent; Z88.8 Allergy status to other drugs, medicaments and biological substances; Z88.7 Allergy status to serum and vaccine
CPT/HCPCS: 36415; 93005; 80053; 84484; 85025; 81003; 71046; 99284; 96374; J2765

== ENCOUNTER 2022-09-19 09:54 | Day surgery (SDC) | payer MEDICARE ==
[~2022-09-19 09:54] MED LIST: LACTATED RINGERS 1,000 ML IV SCH
[2022-09-19] MEDS ORDERED: LIDOCAINE 1% (10MG/ML) FOR IV START INTRADERMA ONE (10:50)
[2022-09-19 10:53] VITALS: TEMP 98.2
[2022-09-19] MEDS ORDERED: LIDOCAINE 2% INJ 20 MG/ML (2 ML VIAL) ONE (11:30)
[2022-09-19] MEDS ORDERED: PROPOFOL 10 MG/ML 20 ML VIAL IV ONE (11:30)
--- NOTE | 2022-09-19 11:42 | P.PCN ---
Date of Procedure: 09/19/22 Procedure(s) Performed: BRIEF HISTORY: Patient is a 67-year-old, pleasant, white female scheduled for an upper endoscopy as a part of evaluation of long-standing history of GERD. PROCEDURE PERFORMED: Esophagogastroduodenoscopy with biopsy. PREOPERATIVE DIAGNOSIS: Long-standing history of GERD. IV sedation per anesthesia. PROCEDURE: After informed consent was obtained, the patient was brought into the endoscopy unit. IV sedation was administered by Anesthesia under continuous monitoring. Initially the Olympus GIF-140 video endoscope was inserted into the mouth. Esophagus intubated without any difficulty. It was gradually advanced into the stomach and duodenum and carefully examined. The bulb and the second part of the duodenum appeared normal. The scope at this time was withdrawn to the stomach, adequately insufflated with air, and upon careful examination, mucosa of the antrum, patchy areas of erythema consistent with gastritis and biopsies were done from this area. Mucosa of the body, cardia and the fundus appeared normal. The scope was then withdrawn into the esophagus. Small hiatal hernia noted. The GE junction was located at 39 cm from the incisors. The esophagus appeared normal. There were no erosions or ulcerations seen and the patient tolerated the procedure well. IMPRESSION: 1. Mild antral gastritis. 2. Small sliding type hiatal hernia but no evidence of esophagitis or Sutton's esophagus. RECOMMENDATIONS: The findings of this examination were discussed with the patient as well as her family. She was advised to follow with the biopsy results. She will continue with omeprazole 20 mg daily and follow antireflux measures..
[2022-09-19 12:45] VITALS: RESP 14
[2022-09-19 12:46] VITALS: BP 130/85; PULSE 72
== END 2022-09-19 12:47 | disposition home or self-care (01) ==
LOC: ORWHC2ENDO 09:54
PROVIDERS: ATTEND Internal Medicine Gastroenterology
DX: K29.50 Unspecified chronic gastritis without bleeding (principal); K21.9 Gastro-esophageal reflux disease without esophagitis; K44.9 Diaphragmatic hernia without obstruction or gangrene; I25.10 Atherosclerotic heart disease of native coronary artery without angina pectoris; I10 Essential (primary) hypertension; E78.5 Hyperlipidemia, unspecified; F17.200 Nicotine dependence, unspecified, uncomplicated; Z98.890 Other specified postprocedural states; Z79.899 Other long term (current) drug therapy
CPT/HCPCS: 43239; 88305

== ENCOUNTER 2023-07-26 09:55 | Inpatient (IN) | payer MEDICARE ==
--- NOTE | 2023-07-26 10:10 | ED ---
General Adult HPI - General Chief complaint: Shortness of Breath Stated complaint: SOB Time Seen by Provider: 07/26/23 09:56 Source: patient, RN notes reviewed Mode of arrival: EMS Limitations: no limitations - History of Present Illness Initial comments: Patient is a pleasant 68-year-old female presenting to the emergency department with concerns for dyspnea. Onset of symptoms was yesterday. Patient has had sinus congestion for the past 1 week. Patient has occasional cough. Patient does have some mild chest pressure which she does attribute to the cough. No calf pain or leg swelling. - Related Data Home Medications Medication Instructions Recorded Confirmed Clopidogrel [Plavix] 75 mg PO HS 12/07/19 07/26/23 Losartan/Hydrochlorothiazide 1 tab PO DAILY PRN 12/07/19 07/26/23 [Losartan-Hctz 50-12.5 mg Tab] Omeprazole [PriLOSEC] 20 mg PO BID 12/07/19 07/26/23 Aspirin 81 mg PO DAILY 09/17/22 07/26/23 Levothyroxine Sodium [Synthroid] 112 mcg PO DAILY 09/17/22 07/26/23 Atorvastatin [Lipitor] 40 mg PO HS 07/26/23 07/26/23 Cholecalciferol [Vitamin D3 (125 125 mcg PO MOWEFR 07/26/23 07/26/23 Mcg = 5000 Iu)] Metoprolol Succinate (ER) [Toprol 25 mg PO DAILY 07/26/23 07/26/23 Xl] Multivit-Min/FA/Lycopen/Lutein 1 tab PO DAILY 07/26/23 07/26/23 [Centrum Silver Tablet] Psyllium Husk [Fiber Capsule] 0.4 gm PO DAILY 07/26/23 07/26/23 Qunol Ultra Coq10 100mg 1 tab PO DAILY 07/26/23 07/26/23 Allergies Allergy/AdvReac Type Severity Reaction Status Date / Time amoxicillin Allergy Rash/Hives Verified 07/26/23 10:35 influenza virus vaccine, Allergy Rash/Hives Verified 07/26/23 10:35 specific Tetracyclines Allergy Rash/Hives Verified 07/26/23 10:35 codeine AdvReac SYNCOPE Verified 07/26/23 10:35 Review of Systems ROS Statement: Those systems with pertinent positive or pertinent negative responses have been documented in the HPI. ROS Other: All systems not noted in ROS Statement are negative. Constitutional: Denies: fever Eyes: Denies: eye pain ENT: Reports: congestion. Denies: ear pain Respiratory: Reports: as per HPI, cough, dyspnea Cardiovascular: Reports: as per HPI, chest pain Endocrine: Denies: fatigue Gastrointestinal: Denies: abdominal pain Genitourinary: Denies: dysuria Musculoskeletal: Denies: back pain Skin: Denies: rash Neurological: Denies: weakness Past Medical History Past Medical History: Coronary Artery Disease (CAD), Cancer, Hyperlipidemia, Hypertension, Myocardial Infarction (ME) Additional Past Medical History / Comment(s): hepatits as a child, latent TB at 31 years old, breast cancer, benign intracranial hypertension. Last Myocardial Infarction Date:: 2006 History of Any Multi-Drug Resistant Organisms: None Reported Past Surgical History: No Surgical Hx Reported Additional Past Surgical History / Comment(s): heart stents x5, partial left mastectomy, [employer] shunt. Past Anesthesia/Blood Transfusion Reactions: No Reported Reaction Additional Past Anesthesia/Blood Transfusion Reaction / Comment(s): pt is combative if not in deep anesthesia Date of Last Stent Placement:: 2021 Past Psychological History: No Psychological Hx Reported Smoking Status: Current some day smoker Past Alcohol Use History: None Reported - Past Family History Father Family Medical History: Cancer Additional Family Medical History / Comment(s): Multi myeloma Mother Family Medical History: Cancer Additional Family Medical History / Comment(s): Breast cancer General Exam Limitations: no limitations General appearance: alert, in no apparent distress Head exam: Present: normocephalic Eye exam: Present: normal appearance Neck exam: Present: normal inspection Respiratory exam: Present: normal lung sounds bilaterally, decreased breath sounds Cardiovascular Exam: Present: regular rate, normal rhythm GI/Abdominal exam: Present: soft. Absent: tenderness Extremities exam: Present: normal inspection. Absent: pedal edema, calf tenderness Neurological exam: Present: alert Psychiatric exam: Present: normal affect, normal mood Skin exam: Present: normal color Course Vital Signs 07/26/23 07/26/23 07/26/23 09:56 10:00 11:11 Temperature 98.6 F Pulse Rate 86 71 Respiratory 16 18 22 Rate Blood Pressure 130/72 110/78 O2 Sat by Pulse 95 97 Oximetry 07/26/23 07/26/23 12:47 13:14 Temperature Pulse Rate 73 75 Respiratory 22 22 Rate Blood Pressure 98/61 115/60 O2 Sat by Pulse 93 L 92 L Oximetry EKG Findings - EKG Results: EKG: interpreted by ERMD, sinus rhythm (Left bundle branch block. Right axis. Inferior and septal Q waves.), normal ST/T Medical Decision Making - Medical Decision Making Was pt. sent in by a medical professional or institution (DELFINO Wang, [employer], urgent care, hospital, or penitentiary...) When possible be specific @ -No Did you speak to anyone other than the patient for history (EMS, parent, family, police, friend...)? What history was obtained from this source @ -Family does help provide history including onset and family member others with similar symptoms Did you review nursing and triage notes (agree or disagree)? Why? @ -I reviewed and agree with nursing and triage notes Were old charts reviewed (outside hosp., previous admission, EMS record, old EKG, old radiological studies, urgent care reports/EKG's, penitentiary records)? Report findings @ -Previous chest x-ray reviewed Differential Diagnosis (chest pain, altered mental status, abdominal pain women, abdominal pain men, vaginal bleeding, weakness, fever, dyspnea, syncope, headac he, dizziness, GI bleed, back pain, seizure, CVA, palpatations, mental health, musculoskeletal)? @ -Differential Dyspnea: Coronary syndrome, arrhythmia, tamponade, asthma, COPD, pulmonary embolism, pneumonia, pneumothorax, pulmonary effusion, anaphylaxis, diabetic ketoacidosis, flailed chest, pulmonary contusion, diaphragmatic rupture, anemia, neuromuscular, this is not meant to be an all-inclusive list. EKG interpreted by me (3pts min.). @ -As above X-rays interpreted by me (1pt min.). @ -Chest x-ray shows no acute process CT interpreted by me (1pt min.). @ -CT scan shows no evidence of pulmonary embolism. U/S interpreted by me (1pt. min.). @ -None done What testing was considered but not performed or refused? (CT, X-rays, U/S, labs)? Why? @ -None What meds were considered but not given or refused? Why? @ -None Did you discuss the management of the patient with other professionals (professionals i.e. DELFINO Wang, [employer], lab, RT, psych nurse, hospice social worker, composition siding worker, teacher, correction officer city or county jail, geriatric case manager)? Give summary @ -Case was discussed with Dr. Valdez covering Dr. Mejía who will admit Was smoking cessation discussed for >3mins.? @ -No Was critical care preformed (if so, how long)? @ -No Were there social determinants of health that impacted care today? How? (Homelessness, low income, unemployed, alcoholism, drug addiction, transportation, low edu. Level, literacy, decrease access to med. care, prison, rehab)? @ -No Was there de-escalation of care discussed even if they declined (Discuss DNR or withdrawal of care, Hospice)? DNR status @ -No What co-morbidities impacted this encounter? (DM, HTN, Smoking, COPD, CAD, Cancer, CVA, ARF, Chemo, Hep., AIDS, mental health diagnosis, sleep apnea, morbid obesity)? @ -Underlying COPD Was patient admitted / discharged? Hospital course, mention meds given and route, prescriptions, significant lab abnormalities, going to OR and other pertinent info. @ -Patient presents with cough and dyspnea with underlying COPD. Patient hypoxic with pulse ox 90 on room air. Patient will be admitted. Admission orders written. Undiagnosed new problem with uncertain prognosis? @ -No Drug Therapy requiring intensive monitoring for toxicity (Heparin, Nitro, Insulin, Cardizem)? @ -No Were any procedures done? @ -No Diagnosis/symptom? @ -Influenza, COPD Acute, or Chronic, or Acute on Chronic? @ -Acute, acute on chronic Uncomplicated (without systemic symptoms) or Complicated (systemic symptoms)? @ -Default Side effects of treatment? @ -No Exacerbation, Progression, or Severe Exacerbation? @ -Exacerbation of COPD Poses a threat to life or bodily function? How? (Chest pain, USA, ME, pneumonia, PE, COPD, DKA, ARF, appy, cholecystitis, CVA, Diverticulitis, Homicidal, Suicidal, threat to staff... and all critical care pts) @ -No - Lab Data Result diagrams: 07/26/23 10:00 07/26/23 10:00 Lab Results 07/26/23 07/26/23 07/26/23 Range/Units 10:00 10:00 10:00 WBC 5.8 (3.8-10.6) k/uL RBC 4.53 (3.80-5.40) m/uL Hgb 14.2 (11.4-16.0) gm/dL Hct 43.6 (34.0-46.0) % MCV 96.1 (80.0-100.0) fL MCH 31.4 (25.0-35.0) pg MCHC 32.7 (31.0-37.0) g/dL RDW 13.2 (11.5-15.5) % Plt Count 198 (150-450) k/uL MPV 8.5 Neutrophils % 73 % Lymphocytes % 10 % Monocytes % 12 % Eosinophils % 0 % Basophils % 1 % Neutrophils # 4.2 (1.3-7.7) k/uL Lymphocytes # 0.6 L (1.0-4.8) k/uL Monocytes # 0.7 (0-1.0) k/uL Eosinophils # 0.0 (0-0.7) k/uL Basophils # 0.0 (0-0.2) k/uL PT 11.0 (10.0-12.5) sec INR 1.0 (<1.2) APTT 25.2 (22.0-30.0) sec D-Dimer 0.78 H (<0.60) mg/L FEU Sodium 137 (137-145) mmol/L Potassium 4.1 (3.5-5.1) mmol/L Chloride 104 (98-107) mmol/L Carbon Dioxide 25 (22-30) mmol/L Anion Gap 8 mmol/L BUN 8 (7-17) mg/dL Creatinine 0.44 L (0.52-1.04) mg/dL Est GFR (CKD-EPI)AfAm >90 (>60 ml/min/1.73 sqM) Est GFR (CKD-EPI)NonAf >90 (>60 ml/min/1.73 sqM) Glucose 103 H (74-99) mg/dL Plasma Lactic Acid Derrick (0.7-2.0) mmol/L Calcium 9.1 (8.4-10.2) mg/dL Magnesium 1.4 L (1.6-2.3) mg/dL Total Bilirubin 0.3 (0.2-1.3) mg/dL AST 35 (14-36) U/L ALT 32 (4-34) U/L Alkaline Phosphatase 155 H (38-126) U/L Troponin I (0.000-0.034) ng/mL NT-Pro-B Natriuret Pep 938 pg/mL Total Protein 7.2 (6.3-8.2) g/dL Albumin 4.1 (3.5-5.0) g/dL Influenza Type A (PCR) (Not Detectd) Influenza Type B (PCR) (Not Detectd) RSV (PCR) (Not Detectd) SARS-CoV-2 (PCR) (Not Detectd) 07/26/23 07/26/23 07/26/23 Range/Units 10:00 11:11 11:11 WBC (3.8-10.6) k/uL RBC (3.80-5.40) m/uL Hgb (11.4-16.0) gm/dL Hct (34.0-46.0) % MCV (80.0-100.0) fL MCH (25.0-35.0) pg MCHC (31.0-37.0) g/dL RDW (11.5-15.5) % Plt Count (150-450) k/uL MPV Neutrophils % % Lymphocytes % % Monocytes % % Eosinophils % % Basophils % % Neutrophils # (1.3-7.7) k/uL Lymphocytes # (1.0-4.8) k/uL Monocytes # (0-1.0) k/uL Eosinophils # (0-0.7) k/uL Basophils # (0-0.2) k/uL PT (10.0-12.5) sec INR (<1.2) APTT (22.0-30.0) sec D-Dimer (<0.60) mg/L FEU Sodium (137-145) mmol/L Potassium (3.5-5.1) mmol/L Chloride (98-107) mmol/L Carbon Dioxide (22-30) mmol/L Anion Gap mmol/L BUN (7-17) mg/dL Creatinine (0.52-1.04) mg/dL Est GFR (CKD-EPI)AfAm (>60 ml/min/1.73 sqM) Est GFR (CKD-EPI)NonAf (>60 ml/min/1.73 sqM) Glucose (74-99) mg/dL Plasma Lactic Acid Derrick 0.9 (0.7-2.0) mmol/L Calcium (8.4-10.2) mg/dL Magnesium (1.6-2.3) mg/dL Total Bilirubin (0.2-1.3) mg/dL AST (14-36) U/L ALT (4-34) U/L Alkaline Phosphatase (38-126) U/L Troponin I <0.012 (0.000-0.034) ng/mL NT-Pro-B Natriuret Pep pg/mL Total Protein (6.3-8.2) g/dL Albumin (3.5-5.0) g/dL Influenza Type A (PCR) Not Detected (Not Detectd) Influenza Type B (PCR) Detected A (Not Detectd) RSV (PCR) Not Detected (Not Detectd) SARS-CoV-2 (PCR) Not Detected (Not Detectd) Disposition Clinical Impression: Influenza Disposition: ADMITTED IP TO THIS HOSP Is patient prescribed a controlled substance at d/c from ED?: No Referrals: None,Stated [REFERRING] - 1-2 days Time of Disposition: 13:46
[2023-07-26] MEDS: ALBUTEROL HFA INHALER INHALATION STA (10:22)
[2023-07-26 10:28] LABS: Basophils % (A) 1 %; Eosinophils % (A) 0 %; HCT 43.6 % (34.0-46.0); HGB 14.2 gm/dL (11.4-16.0); Lymphocytes # (A) 0.6 k/uL (1.0-4.8); Lymphocytes % (A) 10 %; MCH 31.4 pg (25.0-35.0); MCHC 32.7 g/dL (31.0-37.0); MCV 96.1 fL (80.0-100.0); Mean Platelet Volume 8.5; Monocytes # (A) 0.7 k/uL (0-1.0); Monocytes % (A) 12 %; Neutrophils # (A) 4.2 k/uL (1.3-7.7); Neutrophils % (A) 73 %; Platelet Count 198 k/uL (150-450); RBC 4.53 m/uL (3.80-5.40); RDW 13.2 % (11.5-15.5); WBC 5.8 k/uL (3.8-10.6)
--- NOTE | 2023-07-26 10:40 | XR ---
EXAMINATION TYPE: XR chest 2V DATE OF EXAM: 07/26/2023 COMPARISON: 08/12/2022 INDICATION: Difficulty breathing TECHNIQUE: Frontal and lateral views of the chest are obtained. FINDINGS: The heart size is normal. The pulmonary vasculature is normal. The lungs are clear. Hyperinflation flattening the diaphragms. Correlate for COPD. Coronary vessel c alcification or stents are present. IMPRESSION: 1. No acute pulmonary process. 2. COPD
[2023-07-26 10:43] LABS: Partial Thromboplastin Time 25.2 sec (22.0-30.0)
[2023-07-26 10:46] LABS: ALT 32 U/L (4-34); AST 35 U/L (14-36); African American GFR (CKD) >90 (>60 ml/min/1.73 sqM); Albumin 4.1 g/dL (3.5-5.0); Alkaline Phosphatase 155 U/L (38-126); Anion Gap 8 mmol/L; Blood Urea Nitrogen 8 mg/dL (7-17); Calcium 9.1 mg/dL (8.4-10.2); Carbon Dioxide 25 mmol/L (22-30); Chloride 104 mmol/L (98-107); Glucose 103 mg/dL (74-99); Magnesium 1.4 mg/dL (1.6-2.3); Non-African American GFR(CKD) >90 (>60 ml/min/1.73 sqM); Potassium 4.1 mmol/L (3.5-5.1); Sodium 137 mmol/L (137-145); Total Bilirubin 0.3 mg/dL (0.2-1.3); Total Protein 7.2 g/dL (6.3-8.2)
[2023-07-26 10:48] LABS: NT-Pro-B-Type Natriuretic Pept 938 pg/mL
[2023-07-26] MEDS: NITROGLYCERIN OINT 1 INCH/GM PACKET TOPICAL STA (10:53)
[2023-07-26] MEDS: ASPIRIN 81 MG PO STA (10:54)
[2023-07-26] MEDS: MAGNESIUM OXIDE 400 MG TAB PO STA (11:03)
--- NOTE | 2023-07-26 11:51 | CT ---
EXAMINATION TYPE: CT angio chest CT DLP: 254 mGycm, Automated exposure control for dose reduction was used. DATE OF EXAM: 07/26/2023 11:38 AM COMPARISON: Chest radiograph from same day. Multiple CTs of the chest with most recent on . CLINICAL INDICATION:Female, 68 years old with history of dyspnea; DYSPNEA TECHNIQUE/CONTRAST: CTA scan of the thorax is performed with IV Contrast, patient injected with 85ML mL of Isovue 370, GA P images are created and reviewed these are created on a separate workstation.. FINDINGS: Pulmonary Artery: There is no evidence for a filling defect within the pulmonary vasculature to sugge st acute pulmonary embolism. The pulmonary artery is of normal size. Lungs/Pleura: No evidence of focal consolidation, pleural effusion or pneumothorax. Mild emphysema Airway: Large airways are patent. Heart: Heart is within normal limits for size. Vasculature: No evidence of aortic aneurysm. Mediastinum: No gross evidence of adenopathy. Musculoskeletal: No acute osseous abnormalities Soft Tissues: Unremarkable. Lower neck: No significant findings. Upper Abdomen: No significant findings. IMPRESSION: 1. No evidence of pulmonary embolism. 2. Mild emphysema. . Calcified lung granulomata
[2023-07-26] MEDS ORDERED: NALOXONE 0.4 MG/ML 1 ML VIAL IVP PRN (13:47)
[2023-07-26] MEDS: OSELTAMIVIR 75 MG CAP PO SCH (14:11)
[2023-07-26] MEDS: methylPREDNISolone SOD SUCCI 125 MG/2 ML VIAL IV STA (14:13)
[2023-07-26] MEDS: IPRATROPIUM-ALBUTEROL 3 ML NEB INHALATION SCH (14:47)
[2023-07-26] MEDS ORDERED: LOSARTAN-HCTZ 50-12.5 MG 1 EACH TAB PO PRN (14:52)
--- NOTE | 2023-07-26 17:27 | P.HPIM ---
History of Present Illness H&P Date: 07/26/23 Chief Complaint: Chest pain 59-year-old male present to the emergency department with concerns with chest discomfort. Onset of symptoms was around an hour ago while walking to the car. Discomfort improved and then returned. Discomfort has remained somewhat severe since that time rated 8/10. Discomfort feels like an ache in the sternal region without radiation. Patient had mild nausea earlier. Patient was sweaty earlier. No dyspnea. No history of similar symptoms previously. Blood work completed in ED reveals a CBC WBC of 7.7, hemoglobin of 15.3 and platelet count of 275, sodium 138, potassium 2.2, BUNs/creatinine 15/0.78 and blood glucose of 146, D-dimer of 0.44, troponin is less than 0.[address]-T wave changes Patient is placed on IV heparin infusion in ED and is admitted for further cardiac evaluation Review of Systems REVIEW OF SYSTEMS: CONSTITUTIONAL: No fever, no malaise, no fatigue. HEENT: No recent visual problems or hearing problems. Denied any sore throat. CARDIOVASCULAR: No chest pain, orthopnea, PND, no palpitations, no syncope. PULMONARY: No shortness of breath, no cough, no hemoptysis. GASTROINTESTINAL: No diarrhea, no nausea, no vomiting, no abdominal pain. NEUROLOGICAL: No headaches, no weakness, no numbness. HEMATOLOGICAL: Denies any bleeding or petechiae. GENITOURINARY: Denies any burning micturition, frequency, or urgency. MUSCULOSKELETAL/RHEUMATOLOGICAL: Denies any joint pain, swelling, or any muscle pain. ENDOCRINE: Denies any polyuria or polydipsia. The rest of the 14-point review of systems is negative. Past Medical History Past Medical History: Coronary Artery Disease (CAD), Cancer, Hyperlipidemia, Hypertension, Myocardial Infarction (SD) Additional Past Medical History / Comment(s): hepatits as a child, latent TB at 31 years old, breast cancer, benign intracranial hypertension. Last Myocardial Infarction Date:: 2006 History of Any Multi-Drug Resistant Organisms: None Reported Past Surgical History: No Surgical Hx Reported Additional Past Surgical History / Comment(s): heart stents x5, partial left mastectomy, [employer] shunt. Past Anesthesia/Blood Transfusion Reactions: No Reported Reaction Additional Past Anesthesia/Blood Transfusion Reaction / Comment(s): pt is combative if not in deep anesthesia Date of Last Stent Placement:: 2021 Past Psychological History: No Psychological Hx Reported Smoking Status: Current some day smoker Past Alcohol Use History: None Reported - Past Family History Father Family Medical History: Cancer Additional Family Medical History / Comment(s): Multi myeloma Mother Family Medical History: Cancer Additional Family Medical History / Comment(s): Breast cancer Medications and Allergies Home Medications Medication Instructions Recorded Confirmed Type Clopidogrel [Plavix] 75 mg PO HS 12/07/19 07/26/23 History Losartan/Hydrochlorothiazide 1 tab PO DAILY PRN 12/07/19 07/26/23 History [Losartan-Hctz 50-12.5 mg Tab] Omeprazole [PriLOSEC] 20 mg PO BID 12/07/19 07/26/23 History Aspirin 81 mg PO DAILY 09/17/22 07/26/23 History Levothyroxine Sodium [Synthroid] 112 mcg PO DAILY 09/17/22 07/26/23 History Atorvastatin [Lipitor] 40 mg PO HS 07/26/23 07/26/23 History Cholecalciferol [Vitamin D3 (125 125 mcg PO MOWEFR 07/26/23 07/26/23 History Mcg = 5000 Iu)] Metoprolol Succinate (ER) [Toprol 25 mg PO DAILY 07/26/23 07/26/23 History Xl] Multivit-Min/FA/Lycopen/Lutein 1 tab PO DAILY 07/26/23 07/26/23 History [Centrum Silver Tablet] Psyllium Husk [Fiber Capsule] 0.4 gm PO DAILY 07/26/23 07/26/23 History Qunol Ultra Coq10 100mg 1 tab PO DAILY 07/26/23 07/26/23 History Allergies Allergy/AdvReac Type Severity Reaction Status Date / Time amoxicillin Allergy Rash/Hives Verified 07/26/23 10:35 influenza virus vaccine, Allergy Rash/Hives Verified 07/26/23 10:35 specific Tetracyclines Allergy Rash/Hives Verified 07/26/23 10:35 codeine AdvReac SYNCOPE Verified 07/26/23 10:35 Physical Exam Vitals: Vital Signs Temp Pulse Resp BP Pulse Ox 07/26/23 14:47 75 16 95 07/26/23 14:30 69 23 106/56 94 L 07/26/23 13:14 75 22 115/60 92 L 07/26/23 12:47 73 22 98/61 93 L 07/26/23 11:11 71 22 110/78 97 07/26/23 10:00 18 07/26/23 09:56 98.6 F 86 16 130/72 95 Intake and Output 07/25/23 07/26/23 07/26/23 22:59 06:59 14:59 Other: Weight 58.06 kg General appearance: alert, in no apparent distress Head exam: Present: normocephalic Eye exam: Present: normal appearance Neck exam: Present: normal inspection Respiratory exam: Present: normal lung sounds bilaterally. Absent: chest wall tenderness Cardiovascular Exam: Present: regular rate, normal rhythm Expanded Peripheral pulses: 2+: Radial (R), Radial (L), Dorsalis Pedis (R), Dorsalis Pedis (L) GI/Abdominal exam: Present: soft. Absent: tenderness Extremities exam: Present: normal inspection. Absent: pedal edema, calf te nderness Neurological exam: Present: alert Psychiatric exam: Present: normal affect, normal mood Skin exam: Present: normal color. Absent: diaphoretic Results CBC & Chem 7: 07/26/23 10:00 07/26/23 10:00 Labs: Abnormal Lab Results - Last 24 Hours (Table) 07/26/23 07/26/23 07/26/23 Range/Units 10:00 10:00 10:00 Lymphocytes # 0.6 L (1.0-4.8) k/uL D-Dimer 0.78 H (<0.60) mg/L FEU Creatinine 0.44 L (0.52-1.04) mg/dL Glucose 103 H (74-99) mg/dL Magnesium 1.4 L (1.6-2.3) mg/dL Alkaline Phosphatase 155 H (38-126) U/L Influenza Type B (PCR) (Not Detectd) 07/26/23 Range/Units 11:11 Lymphocytes # (1.0-4.8) k/uL D-Dimer (<0.60) mg/L FEU Creatinine (0.52-1.04) mg/dL Glucose (74-99) mg/dL Magnesium (1.6-2.3) mg/dL Alkaline Phosphatase (38-126) U/L Influenza Type B (PCR) Detected A (Not Detectd) Assessment and Plan Assessment: 1. Chest pain; unstable angina --Patient is admitted to telemetry; monitor EKG and trend troponin -- Currently on IV heparin infusion per protocol -Cardiology is consulted for further evaluation 2. Hypertension; amlodipine 10 mg daily; Coreg 6.25 mg twice daily 3. Diabetes mellitus type 2; patient takes metformin 500 mg twice daily along with Jardiance 25 mg daily; metformin is placed on hold -- Will monitor Accu-Cheks before every meal and at bedtime with insulin sliding scale 4. Hyperuricemia/gout; allopurinol 100 mg daily 5. Seasonal allergies; fexofenadine 180 mg daily 6. BPH/urinary retention; Flomax 0.4 mg daily DVT prophylaxis; SCDs/IV heparin CODE STATUS; full code
--- NOTE | 2023-07-26 17:35 | P.HPIM ---
History of Present Illness H&P Date: 07/26/23 Chief Complaint: Shortness of breath 68-year-old female, history of hypertension, hyperlipidemia, CAD, presenting to the emergency department with concerns for dyspnea. Onset of symptoms was yesterday. Patient has had sinus congestion for the past 1 week. Patient has occasional cough. Patient does have some mild chest pressure which she does attribute to the cough. No calf pain or leg swelling. Blood work completed in ED reveals a WBC of 5.8, hemoglobin of 14.2 and platelet count of 198, sodium 137, potassium 4.1, BUNs/creatinine of 8/0.44 and blood glucose of 103, patient is positive for influenza type B --Patient is being admitted to the hospital for acute exacerbation COPD influenza B infection Review of Systems REVIEW OF SYSTEMS: CONSTITUTIONAL: No fever, no malaise, no fatigue. HEENT: No recent visual problems or hearing problems. Denied any sore throat. CARDIOVASCULAR: No chest pain, orthopnea, PND, no palpitations, no syncope. PULMONARY: No shortness of breath, no cough, no hemoptysis. GASTROINTESTINAL: No diarrhea, no nausea, no vomiting, no abdominal pain. NEUROLOGICAL: No headaches, no weakness, no numbness. HEMATOLOGICAL: Denies any bleeding or petechiae. GENITOURINARY: Denies any burning micturition, frequency, or urgency. MUSCULOSKELETAL/RHEUMATOLOGICAL: Denies any joint pain, swelling, or any muscle pain. ENDOCRINE: Denies any polyuria or polydipsia. The rest of the 14-point review of systems is negative. Past Medical History Past Medical History: Coronary Artery Disease (CAD), Cancer, Hyperlipidemia, Hypertension, Myocardial Infarction ([place]) Additional Past Medical History / Comment(s): hepatits as a child, latent TB at 31 years old, breast cancer, benign intracranial hypertension. 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 Past Anesthesia/Blood Transfusion Reactions: No Reported Reaction Additional Past Anesthesia/Blood Transfusion Reaction / Comment(s): pt is c ombative if not in deep anesthesia Date of Last Stent Placement:: 2021 Past Psychological History: No Psychological Hx Reported Smoking Status: Current some day smoker Past Alcohol Use History: None Reported - Past Family History Father Family Medical History: Cancer Additional Family Medical History / Comment(s): Multi myeloma Mother Family Medical History: Cancer Additional Family Medical History / Comment(s): Breast cancer Medications and Allergies Home Medications Medication Instructions Recorded Confirmed Type Clopidogrel [Plavix] 75 mg PO HS 12/07/19 07/26/23 History Losartan/Hydrochlorothiazide 1 tab PO DAILY PRN 12/07/19 07/26/23 History [Losartan-Hctz 50-12.5 mg Tab] Omeprazole [PriLOSEC] 20 mg PO BID 12/07/19 07/26/23 History Aspirin 81 mg PO DAILY 09/17/22 07/26/23 History Levothyroxine Sodium [Synthroid] 112 mcg PO DAILY 09/17/22 07/26/23 History Atorvastatin [Lipitor] 40 mg PO HS 07/26/23 07/26/23 History Cholecalciferol [Vitamin D3 (125 125 mcg PO MOWEFR 07/26/23 07/26/23 History Mcg = 5000 Iu)] Metoprolol Succinate (ER) [Toprol 25 mg PO DAILY 07/26/23 07/26/23 History Xl] Multivit-Min/FA/Lycopen/Lutein 1 tab PO DAILY 07/26/23 07/26/23 History [Centrum Silver Tablet] Psyllium Husk [Fiber Capsule] 0.4 gm PO DAILY 07/26/23 07/26/23 History Qunol Ultra Coq10 100mg 1 tab PO DAILY 07/26/23 07/26/23 History Allergies Allergy/AdvReac Type Severity Reaction Status Date / Time amoxicillin Allergy Rash/Hives Verified 07/26/23 10:35 influenza virus vaccine, Allergy Rash/Hives Verified 07/26/23 10:35 specific Tetracyclines Allergy Rash/Hives Verified 07/26/23 10:35 codeine AdvReac SYNCOPE Verified 07/26/23 10:35 Physical Exam Vitals: Vital Signs Temp Pulse Resp BP Pulse Ox 07/26/23 14:56 78 16 07/26/23 14:47 75 16 95 07/26/23 14:30 69 23 106/56 94 L 07/26/23 13:14 75 22 115/60 92 L 07/26/23 12:47 73 22 98/61 93 L 07/26/23 11:11 71 22 110/78 97 07/26/23 10:00 18 07/26/23 09:56 98.6 F 86 16 130/72 95 Intake and Output 07/26/23 07/26/23 07/26/23 06:59 14:59 22:59 Other: Weight 58.06 kg General appearance: alert, in no apparent distress Head exam: Present: normocephalic Eye exam: Present: normal appearance Neck exam: Present: normal inspection Respiratory exam: Present: normal lung sounds bilaterally, decreased breath sounds Cardiovascular Exam: Present: regular rate, normal rhythm GI/Abdominal exam: Present: soft. Absent: tenderness Extremities exam: Present: normal inspection. Absent: pedal edema, calf tenderness Neurological exam: Present: alert Psychiatric exam: Present: normal affect, normal mood Skin exam: Present: normal color Results CBC & Chem 7: 07/26/23 10:00 07/26/23 10:00 Labs: Abnormal Lab Results - Last 24 Hours (Table) 07/26/23 07/26/23 07/26/23 Range/Units 10:00 10:00 10:00 Lymphocytes # 0.6 L (1.0-4.8) k/uL D-Dimer 0.78 H (<0.60) mg/L FEU Creatinine 0.44 L (0.52-1.04) mg/dL Glucose 103 H (74-99) mg/dL Magnesium 1.4 L (1.6-2.3) mg/dL Alkaline Phosphatase 155 H (38-126) U/L Influenza Type B (PCR) (Not Detectd) 07/26/23 Range/Units 11:11 Lymphocytes # (1.0-4.8) k/uL D-Dimer (<0.60) mg/L FEU Creatinine (0.52-1.04) mg/dL Glucose (74-99) mg/dL Magnesium (1.6-2.3) mg/dL Alkaline Phosphatase (38-126) U/L Influenza Type B (PCR) Detected A (Not Detectd) Assessment and Plan Assessment: 1. Acute exacerbation COPD -Patient has been placed on IV Solu-Medrol 60 mg every 8 hours; DuoNeb nebulizer treatments 4 times daily and as needed -- We will add oral doxycycline 100 mg twice daily -- Consult pulmonary for further recommendations 2. Influenza B infection; patient is placed on Tamiflu 75 mg twice daily 3. Hypertension; losartan/hydrochlorothiazide 50-12.5 mg daily; metoprolol 25 mg daily 4. Hyperlipidemia; Lipitor 40 mg p.o. nightly 5. Coronary artery disease; patient has history of coronary artery disease with stent placement x 5 -Patient remains on aspirin 81 mg daily, Lipitor 40 mg nightly, Plavix 75 mg daily and metoprolol 25 mg daily 6. Hypothyroidism; levothyroxine 112 mcg daily 7. Vitamin D deficiency; vitamin D 125 mcg Saturday and Saturday DVT prophylaxis; SCDs/subcu heparin CODE STATUS; full code
[2023-07-26] MEDS: methylPREDNISolone SOD SUCCI 125 MG/2 ML VIAL IV SCH (17:51)
[2023-07-26] MEDS: ACETAMINOPHEN TAB 325 MG TAB PO PRN (19:16)
[2023-07-26] MEDS: SODIUM CHLORIDE 0.9% 1,000 ML IV SCH (19:18)
[2023-07-26] MEDS ORDERED: DOXYCYCLINE 100 MG CAP PO SCH (21:00)
[2023-07-26] MEDS: AZITHROMYCIN 500 MG TAB PO SCH (21:52)
[2023-07-26] MEDS: ATORVASTATIN 40 MG TAB PO SCH (21:52)
[2023-07-26] MEDS: HEPARIN SODIUM,PORCINE 5,000 UNIT/ML 1 ML VIAL SQ SCH (21:52)
[2023-07-26] MEDS: CLOPIDOGREL 75 MG TAB PO SCH (21:52)
[2023-07-27] MEDS: IPRATROPIUM-ALBUTEROL 3 ML NEB INHALATION PRN (05:43)
[2023-07-27] MEDS: PANTOPRAZOLE 40 MG TABLET PO SCH (06:37)
[2023-07-27 08:31] LABS: Basophils % (A) 0 %; Eosinophils % (A) 0 %; HCT 39.9 % (34.0-46.0); HGB 12.5 gm/dL (11.4-16.0); Lymphocytes # (A) 0.4 k/uL (1.0-4.8); Lymphocytes % (A) 14 %; MCH 30.9 pg (25.0-35.0); MCHC 31.3 g/dL (31.0-37.0); MCV 98.7 fL (80.0-100.0); Mean Platelet Volume 8.5; Monocytes # (A) 0.2 k/uL (0-1.0); Monocytes % (A) 6 %; Neutrophils # (A) 2.4 k/uL (1.3-7.7); Neutrophils % (A) 77 %; Platelet Count 174 k/uL (150-450); RBC 4.05 m/uL (3.80-5.40); WBC 3.1 k/uL (3.8-10.6)
[2023-07-27 09:29] LABS: African American GFR (CKD) >90 (>60 ml/min/1.73 sqM); Anion Gap 7 mmol/L; Blood Urea Nitrogen 13 mg/dL (7-17); Calcium 8.9 mg/dL (8.4-10.2); Carbon Dioxide 23 mmol/L (22-30); Chloride 107 mmol/L (98-107); Glucose 150 mg/dL (74-99); Non-African American GFR(CKD) >90 (>60 ml/min/1.73 sqM); Potassium 3.8 mmol/L (3.5-5.1); Sodium 137 mmol/L (137-145)
[2023-07-27] MEDS: LEVOTHYROXINE 112 MCG TAB PO SCH (10:02)
[2023-07-27] MEDS: ASPIRIN 81 MG PO SCH (10:02)
[2023-07-27] MEDS: METOPROLOL SUCCINATE (ER) 25 MG TAB.ER.24H PO SCH (10:02)
--- NOTE | 2023-07-27 15:30 | P.CNPUL ---
History of Present Illness Consult date: 07/27/23 Requesting physician: Doreen Alfred Reason for consult: dyspnea, COPD Chief complaint: Shortness of breath, cough, congestion History of present illness: This is a pleasant 68-year-old female patient with a known history of coronary artery disease with previous stent placements x 5, breast cancer with partial left mastectomy, benign intracranial hypertension with TONGUE LINING STITCHER shunt, hypertension, hyperlipidemia, chronic tobacco dependence and COPD. She presented here to the emergency room yesterday with a 1 week history of increasing shortness of breath, cough congestion mild chest pressure and sinus congestion. Chest x-ray revealed no acute pulmonary process. Evidence of COPD. CT angiogram ruled out pulmonary embolism. Mild emphysema. White count 3.1. Hemoglobin 12.5. Platelets 174. Sodium 137. Potassium 3.8. Bicarb 23. BUN 13. Creatinine 0.40. Glucose 150. Viral screen positive for influenza B. Seen today on the regular medical floor. Sitting up in bed. Awake and alert in no acute distress. She is feeling a bit better today compared to yesterday. Requiring 4 L nasal cannula to maintain O2 saturations in the mid 90s. She is afebrile. Hemodynamically stable. Review of Systems REVIEW OF SYSTEMS: CONSTITUTIONAL: Denies any recent significant weight loss or weight gain. EYES: Denies change in vision. EARS, NOSE, MOUTH, THROAT: Denies headaches, denies sore throat. CARDIOVASCULAR: Denies chest pain, palpitations or syncopal episodes. RESPIRATORY: Positive for shortness of breath, cough, congestion no hemoptysis. GASTROINTESTINAL: Denies change in appetite, denies abdominal pain GENITOURINARY: Denies hematuria, denies infections. MUSKULOSKELETAL: Denies pain, denies swelling. INTEGUMENTARY: Denies rash, denies eczema. NEUROLOGICAL: Denies recent memory loss, no recent seizure activity. PSYCHIATRIC: Denies anxiety, denies depression. HEMATOLOGIC/LYMPHATIC: Denies anemia, denies enlarged lymph nodes. Past Medical History Past Medical History: Coronary Artery Disease (CAD), Cancer, Hyperlipidemia, Hypertension, Myocardial Infarction ([place]) Additional Past Medical History / Comment(s): hepatits as a child, latent TB at 31 years old, breast cancer, benign intracranial hypertension. Last Myocardial Infarction Date:: 2006 History of Any Multi-Drug Resistant Organisms: None Reported Past Surgical History: No Surgical Hx Reported Additional Past Surgical History / Comment(s): heart stents x5, partial left mastectomy, TONGUE LINING STITCHER shunt. Past Anesthesia/Blood Transfusion Reactions: No Reported Reaction Additional Past Anesthesia/Blood Transfusion Reaction / Comment(s): pt is combative if not in deep anesthesia Date of Last Stent Placement:: 2021 Past Psychological History: No Psychological Hx Reported Smoking Status: Former smoker Past Alcohol Use History: None Reported Past Drug Use History: None Reported - Past Family History Father Family Medical History: Cancer Additional Family Medical History / Comment(s): Multi myeloma Mother Family Medical History: Cancer Additional Family Medical History / Comment(s): Breast cancer Medications and Allergies Home Medications Medication Instructions Recorded Confirmed Type Clopidogrel [Plavix] 75 mg PO HS 12/07/19 07/26/23 History Losartan/Hydrochlorothiazide 1 tab PO DAILY PRN 12/07/19 07/26/23 History [Losartan-Hctz 50-12.5 mg Tab] Omeprazole [PriLOSEC] 20 mg PO BID 12/07/19 07/26/23 History Aspirin 81 mg PO DAILY 09/17/22 07/26/23 History Levothyroxine Sodium [Synthroid] 112 mcg PO DAILY 09/17/22 07/26/23 History Atorvastatin [Lipitor] 40 mg PO HS 07/26/23 07/26/23 History Cholecalciferol [Vitamin D3 (125 125 mcg PO MOWEFR 07/26/23 07/26/23 History Mcg = 5000 Iu)] Metoprolol Succinate (ER) [Toprol 25 mg PO DAILY 07/26/23 07/26/23 History Xl] Multivit-Min/FA/Lycopen/Lutein 1 tab PO DAILY 07/26/23 07/26/23 History [Centrum Silver Tablet] Psyllium Husk [Fiber Capsule] 0.4 gm PO DAILY 07/26/23 07/26/23 History Qunol Ultra Coq10 100mg 1 tab PO DAILY 07/26/23 07/26/23 History Allergies Allergy/AdvReac Type Severity Reaction Status Date / Time amoxicillin Allergy Rash/Hives Verified 07/26/23 10:35 influenza virus vaccine, Allergy Rash/Hives Verified 07/26/23 10:35 specific Tetracyclines Allergy Rash/Hives Verified 07/26/23 10:35 codeine AdvReac SYNCOPE Verified 07/26/23 10:35 Physical Exam Vitals: Vital Signs Temp Pulse Pulse Resp BP Pulse Ox 07/27/23 12:02 84 07/27/23 11:53 72 07/27/23 10:52 30 H 87 L 07/27/23 08:00 74 30 H 07/27/23 07:49 73 07/27/23 06:47 98.4 F 75 18 121/73 94 L 07/27/23 05:51 74 07/27/23 05:43 70 07/27/23 01:51 98.0 F 58 L 20 92/54 96 07/26/23 20:00 19 07/26/23 19:09 98.1 F 87 20 121/67 90 L 07/26/23 18:54 70 07/26/23 18:41 72 07/26/23 17:49 98.3 F 87 19 110/62 90 L Intake and Output 07/27/23 07/27/23 07/27/23 06:59 14:59 22:59 Intake Total 650 450 Balance 650 450 Intake: Oral 650 450 Other: Voiding Method Toilet # Voids 3 GENERAL EXAM: Alert, pleasant 68-year-old female, on 4 L nasal cannula, fairly comfortable in no apparent distress. HEAD: Normocephalic. EYES: Normal reaction of pupils, equal size. NOSE: Clear with pink turbinates. THROAT: No erythema or exudates. NECK: No masses, no JVD. CHEST: No chest wall deformity. LUNGS: Equal air entry with bilateral end expiratory wheeze, scattered rhonchi. CVS: S1 and S2 normal with no audible murmur, regular rhythm. ABDOMEN: No hepatosplenomegaly, normal bowel sounds, no guarding or rigidity. SPINE: No scoliosis or deformity SKIN: No rashes CENTRAL NERVOUS SYSTEM: No focal deficits, tone is normal in all 4 extremities. EXTREMITIES: There is no peripheral edema. No clubbing, no cyanosis. Peripheral pulses are intact. Results - Laboratory Findings CBC and BMP: 07/27/23 07:52 07/27/23 07:52 PT/INR, D-dimer PT 11.0 sec (10.0-12.5) 07/26/23 10:00 INR 1.0 (<1.2) 07/26/23 10:00 D-Dimer 0.78 mg/L FEU (<0.60) H 07/26/23 10:00 Abnormal lab findings: Abnormal Labs 07/26/23 07/26/23 07/26/23 10:00 10:00 10:00 WBC Lymphocytes # 0.6 L D-Dimer 0.78 H Creatinine 0.44 L Glucose 103 H Magnesium 1.4 L Alkaline Phosphatase 155 H Influenza Type B (PCR) 07/26/23 07/27/23 07/27/23 11:11 07:52 07:52 WBC 3.1 L Lymphocytes # 0.4 L D-Dimer Creatinine 0.40 L Glucose 150 H Magnesium Alkaline Phosphatase Influenza Type B (PCR) Detected A - Diagnostic Findings Chest x-ray: image reviewed CT scan - chest: image reviewed Assessment and Plan Assessment: Acute hypoxemic respiratory failure secondary to an acute exacerbation of COPD complicated by influenza B Acute influenza B infection Coronary artery disease with previous stent placement x 5 Chronic tobacco dependence Hypertension Hyperlipidemia Hypothyroidism Gastroesophageal reflux disease History of breast cancer status post partial left mastectomy History of benign intracranial hypertension with TONGUE LINING STITCHER shunt History of latent TB at age 31 Plan: The patient was seen and evaluated Chest x-ray, CT angiogram, labs and medications reviewed Continue bronchodilators and steroids Continue Tamiflu Continue antibiotics for now Check a procalcitonin Educated regarding the importance of complete smoking cessation We will continue to follow and make further recommendations based on her clinical status I have personally seen and examined the patient, performed the documentation and the assessment and plan as written. Number of minutes spent on the visit: 20.
--- NOTE | 2023-07-27 16:44 | P.PN ---
Subjective Progress Note Date: 07/27/23 68-year-old female, history of hypertension, hyperlipidemia, CAD, presenting to the emergency department with concerns for dyspnea. Onset of symptoms was yesterday. Patient has had sinus congestion for the past 1 week. Patient has occasional cough. Patient does have some mild chest pressure which she does attribute to the cough. No calf pain or leg swelling. Blood work completed in ED reveals a WBC of 5.8, hemoglobin of 14.2 and platelet count of 198, sodium 137, potassium 4.1, BUNs/creatinine of 8/0.44 and blood glucose of 103, patient is positive for influenza type B --Patient is being admitted to the hospital for acute exacerbation COPD influenza B infection Objective - Vital Signs Vital signs: Vital Signs Temp 98.4 F 07/27/23 06:47 Pulse 74 07/27/23 08:00 Resp 30 H 07/27/23 10:52 BP 121/73 07/27/23 06:47 Pulse Ox 87 L 07/27/23 10:52 FiO2 Intake & Output 07/26/23 07/27/23 07/27/23 18:59 06:59 18:59 Intake Total 650 200 Balance 650 200 Weight 58.06 kg Intake: Oral 650 200 Other: Voiding Method Toilet Toilet Toilet # Voids 1 3 - Exam General appearance: alert, in no apparent distress Head exam: Present: normocephalic Eye exam: Present: normal appearance Neck exam: Present: normal inspection Respiratory exam: Present: normal lung sounds bilaterally, decreased breath sounds Cardiovascular Exam: Present: regular rate, normal rhythm GI/Abdominal exam: Present: soft. Absent: tenderness Extremities exam: Present: normal inspection. Absent: pedal edema, calf tenderness Neurological exam: Present: alert Psychiatric exam: Present: normal affect, normal mood Skin exam: Present: normal color - Labs CBC & Chem 7: 07/27/23 07:52 07/27/23 07:52 Labs: Abnormal Lab Results - Last 24 Hours (Table) 07/26/23 07/27/23 07/27/23 Range/Units 11:11 07:52 07:52 WBC 3.1 L (3.8-10.6) k/uL Lymphocytes # 0.4 L (1.0-4.8) k/uL Creatinine 0.40 L (0.52-1.04) mg/dL Glucose 150 H (74-99) mg/dL Influenza Type B (PCR) Detected A (Not Detectd) Assessment and Plan Assessment: 1. Acute exacerbation COPD -Patient has been placed on IV Solu-Medrol 60 mg every 8 hours; DuoNeb nebulizer treatments 4 times daily and as needed -- We will add oral doxycycline 100 mg twice daily -- Consult pulmonary for further recommendations 2. Influenza B infection; patient is placed on Tamiflu 75 mg twice daily 3. Hypertension; losartan/hydrochlorothiazide 50-12.5 mg daily; metoprolol 25 mg daily 4. Hyperlipidemia; Lipitor 40 mg p.o. nightly 5. Coronary artery disease; patient has history of coronary artery disease with stent placement x 5 -Patient remains on aspirin 81 mg daily, Lipitor 40 mg nightly, Plavix 75 mg daily and metoprolol 25 mg daily 6. Hypothyroidism; levothyroxine 112 mcg daily 7. Vitamin D deficiency; vitamin D 125 mcg Saturday and Saturday DVT prophylaxis; SCDs/subcu heparin CODE STATUS; full code
[2023-07-27] MEDS ORDERED: polyethylene glycoL 3350 17 GM POWD.PACK PO SCH (17:00)
[2023-07-27] MEDS: BENZONATATE 100 MG CAP PO PRN (21:42)
[2023-07-28 09:32] LABS: Basophils # (A) 0.01 X 10*3/uL (0.00-0.10); Basophils % (A) 0.1 %; Eosinophils # (A) 0 X 10*3/uL (0.04-0.35); Eosinophils % (A) 0 %; HCT 37.4 % (37.2-46.3); HGB 12.1 g/dL (12.0-15.0); Lymphocytes # (A) 0.53 X 10*3/uL (0.90-5.00); Lymphocytes % (A) 5.9 %; MCH 31.1 pg (27.0-32.0); MCHC 32.4 g/dL (32.0-37.0); MCV 96.1 FL (80.0-97.0); Mean Platelet Volume 11.3 FL (9.5-12.2); Monocytes # (A) 0.58 X 10*3/uL (0.20-1.00); Monocytes % (A) 6.4 %; NRBC Per 100 WBC 0 X 10*3/uL (0.00-0.01); Neutrophils # (A) 7.86 X 10*3/uL (1.80-7.70); Neutrophils % (A) 87.3 %; Platelet Count 178 X 10*3/uL (140-440); RBC 3.89 X 10*6/uL (4.10-5.20); RDW 13.6 % (11.5-14.5); WBC 9.01 X 10*3/uL (4.50-10.00)
[2023-07-28 10:03] LABS: BUN/Creat Ratio 34.25 Ratio (12.00-20.00); Blood Urea Nitrogen 13.7 mg/dL (9.0-27.0); Carbon Dioxide 26.6 mmol/L (21.6-31.8); Chloride 101 mmol/L (96-109); Glucose 135 mg/dL (70-110); Potassium 4.4 mmol/L (3.5-5.5); Sodium 136 mmol/L (135-145)
[2023-07-28 10:04] LABS: Calcium 8.7 mg/dL (8.7-10.3)
[2023-07-28] MEDS: traMADol 50 MG TAB PO PRN (12:27)
--- NOTE | 2023-07-28 14:25 | P.PN ---
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 She presented here to the emergency room yesterday with a 1 week history of increasing shortness of breath, cough congestion mild chest pressure and sinus congestion. Chest x-ray revealed no acute pulmonary process. Evidence of COPD. CT angiogram ruled out pulmonary embolism. Mild emphysema. White count 3.1. Hemoglobin 12.5. Platelets 174. Sodium 137. Potassium 3.8. Bicarb 23. BUN 13. Creatinine 0.40. Glucose 150. Viral screen positive for influenza B. Seen today on the regular medical floor. Sitting up in bed. Awake and alert in no acute distress. She is feeling a bit better today compared to yesterday. Requiring 4 L nasal cannula to maintain O2 saturations in the mid 90s. She is afebrile. Hemodynamically stable. The patient is seen today July 28, 2023 in follow-up on the regular medical floor. She is currently resting in bed. Awake and alert in no acute distress. She is feeling quite a bit better. She is maintaining O2 saturation in the 90s on 4 L/min per nasal cannula. She has normal saline at 75 MLS per hour. She remains on Tamiflu for her influenza B infection. White count 9.0. Hemoglobin 12.1. Sodium 136. Potassium 4.4. Bicarb 27. BUN 14. Creatinine 0.8. Glucose 135. Remains on bronchodilators and steroids. Empiric antibiotics in the form of azithromycin. Objective - Vital Signs Vital signs: Vital Signs Temp 98.2 F 07/28/23 07:27 Pulse 60 07/28/23 11:24 Resp 30 H 07/28/23 12:24 BP 107/61 07/28/23 07:27 Pulse Ox 82 L 07/28/23 12:24 FiO2 Intake & Output 07/27/23 07/28/23 07/28/23 18:59 06:59 18:59 Intake Total 450 480 Balance 450 480 Intake: Oral 450 480 Other: Voiding Method Toilet Toilet Toilet # Voids 2 2 1 # Bowel Movements 0 - Exam GENERAL EXAM: Alert, 68-year-old female, resting in bed, on 4 L nasal cannula, comfortable in no apparent distress. HEAD: Normocephalic. EYES: Normal reaction of pupils, equal size. NOSE: Clear with pink turbinates. THROAT: No erythema or exudates. NECK: No masses, no JVD. CHEST: No chest wall deformity. LUNGS: Equal air entry with bilateral end expiratory wheeze, scattered rhonchi. CVS: S1 and S2 normal with no audible murmur, regular rhythm. ABDOMEN: No hepatosplenomegaly, normal bowel sounds, no guarding or rigidity. SPINE: No scoliosis or deformity SKIN: No rashes CENTRAL NERVOUS SYSTEM: No focal deficits, tone is normal in all 4 extremities. EXTREMITIES: There is no peripheral edema. No clubbing, no cyanosis. Peripher al pulses are intact. - Labs CBC & Chem 7: 07/28/23 04:54 07/28/23 04:54 Labs: Abnormal Lab Results - Last 24 Hours (Table) 07/28/23 07/28/23 Range/Units 04:54 04:54 RBC 3.89 L (4.10-5.20) X 10*6/uL Neutrophils # 7.86 H (1.80-7.70) X 10*3/uL Lymphocytes # 0.53 L (0.90-5.00) X 10*3/uL Eosinophils # 0 L (0.04-0.35) X 10*3/uL Creatinine 0.4 L (0.6-1.5) mg/dL BUN/Creatinine Ratio 34.25 H (12.00-20.00) Ratio Glucose 135 H (70-110) mg/dL Assessment and Plan Assessment: Acute hypoxemic respiratory failure secondary to an acute exacerbation of COPD complicated by influenza B Acute influenza B infection Coronary artery disease with previous stent placement x 5 Chronic tobacco dependence Hypertension Hyperlipidemia Hypothyroidism Gastroesophageal reflux disease History of breast cancer status post partial left mastectomy History of benign intracranial hypertension with MARINE EXTENSION AGENT shunt History of latent TB at age 31 Plan: The patient was seen and evaluated Labs and medications reviewed Continue the current treatment plan Transition to oral steroids She is anxious to go home I have personally seen and examined the patient, performed the documentation and the assessment and plan as written. Number of minutes spent on the visit: 10.
--- NOTE | 2023-07-28 15:11 | P.PN ---
Subjective Progress Note Date: 07/28/23 68-year-old female, history of hypertension, hyperlipidemia, CAD, presenting to the emergency department with concerns for dyspnea. Onset of symptoms was yesterday. Patient has had sinus congestion for the past 1 week. Patient has occasional cough. Patient does have some mild chest pressure which she does attribute to the cough. No calf pain or leg swelling. Blood work completed in ED reveals a WBC of 5.8, hemoglobin of 14.2 and platelet count of 198, sodium 137, potassium 4.1, BUNs/creatinine of 8/0.44 and blood glucose of 103, patient is positive for influenza type B --Patient is being admitted to the hospital for acute exacerbation COPD influenza B infection 07/28/2023 Patient is seen and evaluated in follow-up on the regular medical floor. She is currently resting in bed. Awake and alert in no acute distress. She is feeling quite a bit better. She is maintaining O2 saturation in the 90s on 4 L/min per nasal cannula. She has normal saline at 75 MLS per hour. -- She remains on Tamiflu for her influenza B infection. Continue with current steroid and bronchodilator therapy; remains on empiric antibiotics in form of azithromycin --White count 9.0. Hemoglobin 12.1. Sodium 136. Potassium 4.4. Bicarb 27. BUN 14. Creatinine 0.8. Glucose 135. -- Patient remains on O2 at 4 L per nasal cannula with O2 saturation 90% pulmonary service on board and have transition patient to oral antibiotics; we will continue to wean O2 keeping O2 saturation greater than 90% -- Possible discharge in next 24 to 48 hours Objective - Vital Signs Vital signs: Vital Signs Temp 98.2 F 07/28/23 07:27 Pulse 74 07/28/23 11:13 Resp 18 07/28/23 08:00 BP 107/61 07/28/23 07:27 Pulse Ox 94 L 07/28/23 07:27 FiO2 Intake & Output 07/27/23 07/28/23 07/28/23 18:59 06:59 18:59 Intake Total 450 480 Balance 450 480 Intake: Oral 450 480 Other: Voiding Method Toilet Toilet Toilet # Voids 2 2 1 # Bowel Movements 0 - Exam General appearance: alert, in no apparent distress Head exam: Present: normocephalic Eye exam: Present: normal appearance Neck exam: Present: normal inspection Respiratory exam: Present: normal lung sounds bilaterally, decreased breath sounds Cardiovascular Exam: Present: regular rate, normal rhythm GI/Abdominal exam: Present: soft. Absent: tenderness Extremities exam: Present: normal inspection. Absent: pedal edema, calf tenderness Neurological exam: Present: alert Psychiatric exam: Present: normal affect, normal mood Skin exam: Present: normal color - Labs CBC & Chem 7: 07/28/23 04:54 07/28/23 04:54 Labs: Abnormal Lab Results - Last 24 Hours (Table) 07/28/23 07/28/23 Range/Units 04:54 04:54 RBC 3.89 L (4.10-5.20) X 10*6/uL Neutrophils # 7.86 H (1.80-7.70) X 10*3/uL Lymphocytes # 0.53 L (0.90-5.00) X 10*3/uL Eosinophils # 0 L (0.04-0.35) X 10*3/uL Creatinine 0.4 L (0.6-1.5) mg/dL BUN/Creatinine Ratio 34.25 H (12.00-20.00) Ratio Glucose 135 H (70-110) mg/dL Assessment and Plan Assessment: 1. Acute exacerbation COPD -Patient has been placed on IV Solu-Medrol 60 mg every 8 hours; DuoNeb nebulizer treatments 4 times daily and as needed -- We will add oral doxycycline 100 mg twice daily -- Consult pulmonary for further recommendations 2. Influenza B infection; patient is placed on Tamiflu 75 mg twice daily 3. Hypertension; losartan/hydrochlorothiazide 50-12.5 mg daily; metoprolol 25 mg daily 4. Hyperlipidemia; Lipitor 40 mg p.o. nightly 5. Coronary artery disease; patient has history of coronary artery disease with stent placement x 5 -Patient remains on aspirin 81 mg daily, Lipitor 40 mg nightly, Plavix 75 mg daily and metoprolol 25 mg daily 6. Hypothyroidism; levothyroxine 112 mcg daily 7. Vitamin D deficiency; vitamin D 125 mcg Saturday and Saturday DVT prophylaxis; SCDs/subcu heparin CODE STATUS; full code
[2023-07-29 09:07] VITALS: BP 136/79; RESP 19; TEMP 98.2
[2023-07-29] MEDS: predniSONE 20 MG TAB PO SCH (09:59)
[2023-07-29] MEDS: CHOLECALCIFEROL 125 MCG (5000 IU) TABLET PO SCH (09:59)
--- NOTE | 2023-07-29 12:34 | P.PN ---
Subjective Progress Note Date: 07/29/23 Principal diagnosis: Shortness of breath. This is a pleasant 68-year-old female patient with a known history of coronary artery disease with previous stent placements x 5, breast cancer with partial left mastectomy, benign intracranial hypertension with ACCOUNT ASSISTANT shunt, hypertension, h yperlipidemia, chronic tobacco dependence and COPD. She presented here to the emergency room yesterday with a 1 week history of increasing shortness of breath, cough congestion mild chest pressure and sinus congestion. Chest x-ray revealed no acute pulmonary process. Evidence of COPD. CT angiogram ruled out pulmonary embolism. Mild emphysema. White count 3.1. Hemoglobin 12.5. Platelets 174. Sodium 137. Potassium 3.8. Bicarb 23. BUN 13. Creatinine 0.40. Glucose 150. Viral screen positive for influenza B. Seen today on the regular medical floor. Sitting up in bed. Awake and alert in no acute distress. She is feeling a bit better today compared to yesterday. Requiring 4 L nasal cannula to maintain O2 saturations in the mid 90s. She is afebrile. Hemodynamically stable. The patient is seen today July 28, 2023 in follow-up on the regular medical floor. She is currently resting in bed. Awake and alert in no acute distress. She is feeling quite a bit better. She is maintaining O2 saturation in the 90s on 4 L/min per nasal cannula. She has normal saline at 75 MLS per hour. She remains on Tamiflu for her influenza B infection. White count 9.0. Hemoglobin 12.1. Sodium 136. Potassium 4.4. Bicarb 27. BUN 14. Creatinine 0.8. Glucose 135. Remains on bronchodilators and steroids. Empiric antibiotics in the form of azithromycin. Progress note dated July 29, 2023. The patient is seen today in room 459. The patient has a history of coronary disease, status post stent placements x 5, breast cancer, with partial left mastectomy, benign intracranial hypertension, with ACCOUNT ASSISTANT shunt, hypertension, hyperlipidemia, and COPD from previous tobacco use. The patient was admitted with a diagnosis of COPD exacerbation. She also tested positive for influenza B, was placed on Tamiflu. Currently, the patient is seen in room 459. The patient is currently on 2 L of oxygen. No IV fluids. She feels well enough to be discharged home. Will let the primary service know, that from our perspective, she could be considered for possible discharge. No new laboratory data today. The lab data from July 27 has been reviewed. Objective - Vital Signs Vital signs: Vital Signs Temp 98.2 F 07/29/23 07:42 Pulse 71 07/29/23 12:12 Resp 19 07/29/23 07:42 BP 136/79 07/29/23 07:42 Pulse Ox 94 L 07/29/23 08:57 FiO2 Intake & Output 07/28/23 07/29/23 07/29/23 18:59 06:59 18:59 Intake Total 600 750 Balance 600 750 Intake: Oral 600 750 Other: Voiding Method Toilet Toilet Toilet # Voids 4 5 # Bowel Movements 1 - Exam No acute distress, oriented 3. No respiratory distress. No use of accessory muscles. Currently on 2 L of oxygen. HEENT examination is grossly unremarkable. Mucous membranes are moist. No oral lesions. Neck supple. Full range of motion. No adenopathy thyromegaly or neck vein distention. Cardiovascular examination reveals regular rhythm rate. S1-S2 normal. No S3 or S4. No discernible murmur noted. Heart rate 71 bpm. Lungs reveal mild scattered bilateral rhonchi and expiratory wheezes. No crackles. Breath sounds equal bilaterally. 2 L saturation is 94%. Abdomen soft bowel sounds are heard. No masses or tenderness. Extremities are intact. No cyanosis clubbing or edema. Skin is without rash or lesion. Neurologic examination is brief but nonfocal. - Labs CBC & Chem 7: 07/28/23 04:54 07/28/23 04:54 Assessment and Plan Assessment: Acute hypoxemic respiratory failure secondary to an acute exacerbation of COPD complicated by influenza B. Acute influenza B infection. Coronary artery disease with previous stent placement x 5. Chronic tobacco dependence. Hypertension. Hyperlipidemia. Hypothyroidism. Gastroesophageal reflux disease. History of breast cancer status post partial left mastectomy. History of benign intracranial hypertension with ACCOUNT ASSISTANT shunt. History of latent TB at age 31. Plan: Plan dated July 29, 2023. The patient is seen today in room 459. She is maintained on oxygen at 2 L. She is not receiving any IV fluids. Labs, x-rays, medications are reviewed. The patient's respiratory status is stable. From our perspective, the patient could be considered for possible discharge. She will follow-up in our office, after discharge. No additional recommendations are made at this time. Her overall prognosis remains guarded. Time with Patient: Less than 30
[2023-07-29 12:45] VITALS: PULSE 71
--- NOTE | 2023-07-29 13:35 | P.DS ---
Providers Date of admission: 07/26/23 13:48 Expected date of discharge: 07/29/23 Attending physician: Jovon Mejía Consults: 07/27/23 11:48 Consult Physician Routine Consulting Provider: Isaac Patel Consult Reason/Comments: COPD Exac/ hypoxia Do you want consulting provider notified?: Yes Primary care physician: Jovon Mejía Hospital Course: Final Diagnoses: Acute COPD exacerbation complicated by acute influenza type B infection Acute on chronic hypoxic respiratory failure secondary to the above. Reports she has oxygen at home, uses 2 L nasal cannulae periodically but not con tinuously. CAD with history of stents Ongoing nicotine dependence Gastroesophageal reflux disease Hypertension Hyperlipidemia Hypothyroidism History of latent TB at age 31 History of benign intracranial hypertension with VENTILATOR SPECIALIST shunt History of breast cancer with partial left mastectomy Hospital course this is a 68-year-old female admitted with acute COPD exacerbation, acute influenza B, acute hypoxic respiratory failure and multiple other medical issues. Evaluated by pulmonary. Maintained on Tamiflu, nebulized bronchodilators and steroids. Significant clinical improvement. Patient will be discharged home today in a stable condition with guarded prognosis pending final DC recommendations and clearance per pulmonary. The impression and plan of care has been dictated as directed. : I performed a history and examination of this patient, discussed the same with the dictator. I agree with the dictator's note ,documented as a scribe. Any additional findings or plans will be noted. Patient Condition at Discharge: Stable Plan - Discharge Summary Discharge Rx Participant: No New Discharge Prescriptions: New Oseltamivir [Tamiflu] 75 mg PO Q12HR #3 cap predniSONE 10 mg PO DIRECTED #30 tab Continue Omeprazole [PriLOSEC] 20 mg PO BID Clopidogrel [Plavix] 75 mg PO HS Losartan/Hydrochlorothiazide [Losartan-Hctz 50-12.5 mg Tab] 1 tab PO DAILY PRN PRN Reason: HIGH BLOOD PRESSURE & SWELLING Levothyroxine Sodium [Synthroid] 112 mcg PO DAILY Aspirin 81 mg PO DAILY Cholecalciferol [Vitamin D3 (125 Mcg = 5000 Iu)] 125 mcg PO MOWEFR Psyllium Husk [Fiber Capsule] 0.4 gm PO DAILY Qunol Ultra Coq10 100mg 1 tab PO DAILY Multivit-Min/FA/Lycopen/Lutein [Centrum Silver Tablet] 1 tab PO DAILY Metoprolol Succinate (ER) [Toprol XL] 25 mg PO DAILY Atorvastatin [Lipitor] 40 mg PO HS Discharge Medication List Clopidogrel [Plavix] 75 mg PO HS 12/07/19 [History] Losartan/Hydrochlorothiazide [Losartan-Hctz 50-12.5 mg Tab] 1 tab PO DAILY PRN 12/07/19 [History] Omeprazole [PriLOSEC] 20 mg PO BID 12/07/19 [History] Aspirin 81 mg PO DAILY 09/17/22 [History] Levothyroxine Sodium [Synthroid] 112 mcg PO DAILY 09/17/22 [History] Atorvastatin [Lipitor] 40 mg PO HS 07/26/23 [History] Cholecalciferol [Vitamin D3 (125 Mcg = 5000 Iu)] 125 mcg PO MOWEFR 07/26/23 [History] Metoprolol Succinate (ER) [Toprol XL] 25 mg PO DAILY 07/26/23 [History] Multivit-Min/FA/Lycopen/Lutein [Centrum Silver Tablet] 1 tab PO DAILY 07/26/23 [History] Psyllium Husk [Fiber Capsule] 0.4 gm PO DAILY 07/26/23 [History] Qunol Ultra Coq10 100mg 1 tab PO DAILY 07/26/23 [History] Oseltamivir [Tamiflu] 75 mg PO Q12HR #3 cap 07/29/23 [Rx] predniSONE 10 mg PO DIRECTED #30 tab 07/29/23 [Rx] Follow up Appointment(s)/Referral(s): Isaac Patel MD [STAFF PHYSICIAN] - 08/07/23 10:00 am Jovon Mejía DO [Primary Care Provider] - 1 Week
== END 2023-07-29 14:33 | disposition home or self-care (01) | DRG 193 ==
LOC: EC 09:55 → 4SSUR 13:48
PROVIDERS: ADMIT Family Medicine; ATTEND Family Medicine
DX: J10.1 Influenza due to other identified influenza virus with other respiratory manifestations (principal); J96.01 Acute respiratory failure with hypoxia; J96.21 Acute and chronic respiratory failure with hypoxia; I25.110 Atherosclerotic heart disease of native coronary artery with unstable angina pectoris; J44.1 Chronic obstructive pulmonary disease with (acute) exacerbation; F17.210 Nicotine dependence, cigarettes, uncomplicated; I25.2 Old myocardial infarction; I10 Essential (primary) hypertension; E78.5 Hyperlipidemia, unspecified; E55.9 Vitamin D deficiency, unspecified; E03.9 Hypothyroidism, unspecified; D64.9 Anemia, unspecified; J43.9 Emphysema, unspecified; J30.2 Other seasonal allergic rhinitis; K21.9 Gastro-esophageal reflux disease without esophagitis; M10.9 Gout, unspecified; R33.8 Other retention of urine; Z79.02 Long term (current) use of antithrombotics/antiplatelets; Z79.52 Long term (current) use of systemic steroids; Z79.84 Long term (current) use of oral hypoglycemic drugs; Z79.82 Long term (current) use of aspirin; Z79.890 Hormone replacement therapy; Z79.899 Other long term (current) drug therapy; Z90.12 Acquired absence of left breast and nipple; Z86.15 Personal history of latent tuberculosis infection; Z85.3 Personal history of malignant neoplasm of breast; Z95.5 Presence of coronary angioplasty implant and graft; Z98.2 Presence of cerebrospinal fluid drainage device; Z88.1 Allergy status to other antibiotic agents; Z88.7 Allergy status to serum and vaccine; Z88.5 Allergy status to narcotic agent; I44.7 Left bundle-branch block, unspecified
CPT/HCPCS: 36415; 71046; 71275; 80048; 80053; 83605; 83735; 83880; 84145; 84484; 85025; 85379; 85610; 85730; 87636; 93005; 94640; 94760; 96374; 96376; 99285

== ENCOUNTER 2023-08-01 12:18 | Emergency (ER) | payer MEDICARE ==
[2023-08-01] MEDS: HYDROmorphone 0.5 MG/0.5 ML SYRINGE IVP STA (12:49)
--- NOTE | 2023-08-01 13:02 | ED ---
General Adult HPI - General Chief complaint: Abdominal Pain Stated complaint: Back Pain Time Seen by Provider: 08/01/23 12:26 Source: patient, RN notes reviewed, old records reviewed Mode of arrival: ambulatory Limitations: no limitations - History of Present Illness Initial comments: 68-year-old female presenting for evaluation of lower abdominal pain pain has been present for the past several days. Patient was recently discharged from the hospital with admission for influenza. She states that she has had significant cough and believes that the pain is worse with cough and deep inspiration. This is only lower abdominal pain. No upper abdominal pain or chest pain. No fever. No diarrhea. No dysuria. No vomiting. - Related Data Home Medications Medication Instructions Recorded Confirmed Clopidogrel [Plavix] 75 mg PO HS 12/07/19 07/26/23 Losartan/Hydrochlorothiazide 1 tab PO DAILY PRN 12/07/19 07/26/23 [Losartan-Hctz 50-12.5 mg Tab] Omeprazole [PriLOSEC] 20 mg PO BID 12/07/19 07/26/23 Aspirin 81 mg PO DAILY 09/17/22 07/26/23 Levothyroxine Sodium [Synthroid] 112 mcg PO DAILY 09/17/22 07/26/23 Atorvastatin [Lipitor] 40 mg PO HS 07/26/23 07/26/23 Cholecalciferol [Vitamin D3 (125 125 mcg PO MOWEFR 07/26/23 07/26/23 Mcg = 5000 Iu)] Metoprolol Succinate (ER) [Toprol 25 mg PO DAILY 07/26/23 07/26/23 XL] Multivit-Min/FA/Lycopen/Lutein 1 tab PO DAILY 07/26/23 07/26/23 [Centrum Silver Tablet] Psyllium Husk [Fiber Capsule] 0.4 gm PO DAILY 07/26/23 07/26/23 Qunol Ultra Coq10 100mg 1 tab PO DAILY 07/26/23 07/26/23 Previous Rx's Medication Instructions Recorded Oseltamivir [Tamiflu] 75 mg PO Q12HR #3 cap 07/29/23 predniSONE 10 mg PO DIRECTED #30 tab 07/29/23 Allergies Allergy/AdvReac Type Severity Reaction Status Date / Time amoxicillin Allergy Rash/Hives Verified 08/01/23 12:21 influenza virus vaccine, Allergy Rash/Hives Verified 08/01/23 12:21 specific Tetracyclines Allergy Rash/Hives Verified 08/01/23 12:21 codeine AdvReac SYNCOPE Verified 08/01/23 12:21 Review of Systems ROS Statement: Those systems with pertinent positive or pertinent negative responses have been documented in the HPI. ROS Other: All systems not noted in ROS Statement are negative. Past Medical History Past Medical History: Coronary Artery Disease (CAD), Cancer, Hyperlipidemia, H ypertension, Myocardial Infarction ([place]) Additional Past Medical History / Comment(s): hepatits as a child, latent TB at 31 years old, breast cancer, benign intracranial hypertension. Last Myocardial Infarction Date:: 2006 History of Any Multi-Drug Resistant Organisms: None Reported Past Surgical History: No Surgical Hx Reported Additional Past Surgical History / Comment(s): heart stents x5, partial left mastectomy, PATIENT SUPPORT ASSISTANT shunt. Past Anesthesia/Blood Transfusion Reactions: No Reported Reaction Additional Past Anesthesia/Blood Transfusion Reaction / Comment(s): pt is combative if not in deep anesthesia Date of Last Stent Placement:: 2021 Past Psychological History: No Psychological Hx Reported Smoking Status: Former smoker Past Alcohol Use History: None Reported Past Drug Use History: None Reported - Past Family History Father Family Medical History: Cancer Additional Family Medical History / Comment(s): Multi myeloma Mother Family Medical History: Cancer Additional Family Medical History / Comment(s): Breast cancer General Exam Limitations: no limitations General appearance: alert, in no apparent distress Head exam: Present: atraumatic, normocephalic Eye exam: Present: normal appearance, PERRL ENT exam: Present: normal exam Neck exam: Present: normal inspection. Absent: tenderness, meningismus Respiratory exam: Present: decreased breath sounds. Absent: respiratory distress Cardiovascular Exam: Present: regular rate, normal rhythm GI/Abdominal exam: Present: soft, tenderness (Bilateral lower abdominal pain worse on the left). Absent: distended, guarding, rebound Extremities exam: Present: normal inspection, normal capillary refill Neurological exam: Present: alert, oriented X3, CN II-XII intact. Absent: motor sensory deficit Psychiatric exam: Present: normal affect, normal mood Skin exam: Present: warm, dry, intact. Absent: cyanosis, diaphoretic Course Vital Signs 08/01/23 08/01/23 08/01/23 12:20 14:49 15:13 Temperature 98 F 98.0 F Pulse Rate 71 54 L Respiratory 20 18 Rate Blood Pressure 179/86 146/76 O2 Sat by Pulse 92 L 98 Oximetry Medical Decision Making - Medical Decision Making Was pt. sent in by a medical professional or institution (DELFINO Wang, AUTOMATIC BOW MAKER MACHINE TENDER, urgent care, hospital, or correction...) When possible be specific @ -No Did you speak to anyone other than the patient for history (EMS, parent, family, police, friend...)? What history was obtained from this source @ -No Did you review nursing and triage notes (agree or disagree)? Why? @ -I reviewed and agree with nursing and triage notes Were old charts reviewed (outside hosp., previous admission, EMS record, old EKG, old radiological studies, urgent care reports/EKG's, correction records)? Report findings @ -No old charts were reviewed Differential Diagnosis (chest pain, altered mental status, abdominal pain women, abdominal pain men, vaginal bleeding, weakness, fever, dyspnea, syncope, headache, dizziness, GI bleed, back pain, seizure, CVA, palpatations, mental health, musculoskeletal)? @ -Differential Abdominal Pain Women: Appendicitis, Cholecystitis, diverticulosis, ischemic bowel, pancreatitis, hepatitis, UTI, gastroenteritis, AAA, incarcerated hernia, bowel obstruction, constipation, inflammatory bowel, hepatitis, peptic ulcer disease, splenic infarction, perforated viscus, vulvitis, ovarian torsion, PID, kidney stone, placenta abruption, this is not meant to be an all-inclusive list EKG interpreted by me (3pts min.). @ -As above X-rays interpreted by me (1pt min.). @ -None done CT interpreted by me (1pt min.). @ -CT abdomen pelvis negative for U/S interpreted by me (1pt. min.). @ -None done What testing was considered but not performed or refused? (CT, X-rays, U/S, labs)? Why? @ -None What meds were considered but not given or refused? Why? @ -None Did you discuss the management of the patient with other professionals (professionals i.e. DELFINO Wang, AUTOMATIC BOW MAKER MACHINE TENDER, lab, RT, psych nurse, social media designer, guzzler builder, teacher, residential care officer, rn case management)? Give summary @ -No Was smoking cessation discussed for >3mins.? @ -No Was critical care preformed (if so, how long)? @ -No Were there social determinants of health that impacted care today? How? (Homelessness, low income, unemployed, alcoholism, drug addiction, transportation, low edu. Level, literacy, decrease access to med. care, detention, rehab)? @ -No Was there de-escalation of care discussed even if they declined (Discuss DNR or withdrawal of care, Hospice)? DNR status @ -[No acute intra-abdominal process. What co-morbidities impacted this encounter? (DM, HTN, Smoking, COPD, CAD, Cancer, CVA, ARF, Chemo, Hep., AIDS, mental health diagnosis, sleep apnea, morbid obesity)? @ -Recent influenza Was patient admitted / discharged? Hospital course, memeds given and route, prescriptions, significant lab abnormalities, going to OR and other pertinent info. @ -68-year-old female with lower abdominal pain. No associated vomiting, no fever, no diarrhea or constipation, no dysuria. Patient's pain is worse with coughing or deep breathing. I suspect muscle related pathology CT imaging is negative for acute intra-abdominal process. She has a leukocytosis but she is currently on oral prednisone. She has a mild lactic at 2.3 treated with IV fluids. I did reevaluate the patient she is feeling well enough for discharge and is reassured with the testing that was performed. She will follow closely with Dr. Mejía and she is given strict return parameters. Undiagnosed new problem with uncertain prognosis? @ -No Drug Therapy requiring intensive monitoring for toxicity (Heparin, Nitro, Insuli n, Cardizem)? @ -No Were any procedures done? @ -No Diagnosis/symptom? @ -Abdominal pain Acute, or Chronic, or Acute on Chronic? @ -Default Uncomplicated (without systemic symptoms) or Complicated (systemic symptoms)? @ -Default Side effects of treatment? @ -No Exacerbation, Progression, or Severe Exacerbation? @ -No Poses a threat to life or bodily function? How? (Chest pain, [place], [place], pneumonia, PE, COPD, DKA, ARF, appy, cholecystitis, CVA, Diverticulitis, Homicidal, Suicidal, threat to staff... and all critical care pts) @ -Low risk at this time - Lab Data Result diagrams: 08/01/23 12:52 08/01/23 12:52 Lab Results 08/01/23 08/01/23 08/01/23 Range/Units 12:52 12:52 12:52 WBC 14.6 H (3.8-10.6) k/uL RBC 4.09 (3.80-5.40) m/uL Hgb 13.4 (11.4-16.0) gm/dL Hct 38.3 (34.0-46.0) % MCV 93.6 D (80.0-100.0) fL MCH 32.7 (25.0-35.0) pg MCHC 34.9 (31.0-37.0) g/dL RDW 12.8 (11.5-15.5) % Plt Count 225 (150-450) k/uL MPV 9.5 Neutrophils % 92 % Lymphocytes % 4 % Monocytes % 4 % Eosinophils % 0 % Basophils % 0 % Neutrophils # 13.5 H (1.3-7.7) k/uL Lymphocytes # 0.5 L (1.0-4.8) k/uL Monocytes # 0.5 (0-1.0) k/uL Eosinophils # 0.0 (0-0.7) k/uL Basophils # 0.0 (0-0.2) k/uL PT 10.8 (10.0-12.5) sec INR 1.0 (<1.2) APTT 22.4 (22.0-30.0) sec Sodium (137-145) mmol/L Potassium (3.5-5.1) mmol/L Chloride (98-107) mmol/L Carbon Dioxide (22-30) mmol/L Anion Gap mmol/L BUN (7-17) mg/dL Creatinine (0.52-1.04) mg/dL Est GFR (CKD-EPI)AfAm (>60 ml/min/1.73 sqM) Est GFR (CKD-EPI)NonAf (>60 ml/min/1.73 sqM) Glucose (74-99) mg/dL Plasma Lactic Acid Derrick (0.7-2.0) mmol/L Calcium (8.4-10.2) mg/dL Total Bilirubin (0.2-1.3) mg/dL AST (14-36) U/L ALT (4-34) U/L Alkaline Phosphatase (38-126) U/L Total Protein (6.3-8.2) g/dL Albumin (3.5-5.0) g/dL Amylase (30-110) U/L Lipase (23-300) U/L Urine Color Yellow Urine Appearance Clear (Clear) Urine pH 6.5 (5.0-8.0) Ur Specific Preston 1.016 (1.001-1.035) Urine Protein Negative (Negative) Urine Glucose (UA) Negative (Negative) Urine Ketones Negative (Negative) Urine Blood Negative (Negative) Urine Nitrite Negative (Negative) Urine Bilirubin Negative (Negative) Urine Urobilinogen <2.0 (<2.0) mg/dL Ur Leukocyte Esterase Moderate H (Negative) Urine RBC 1 (0-5) /hpf Urine WBC 2 (0-5) /hpf Ur Squamous Epith Cells 5 H (0-4) /hpf Urine Bacteria Occasional H (None) /hpf Urine Mucus Rare H (None) /hpf 08/01/23 08/01/23 Range/Units 12:52 12:52 WBC (3.8-10.6) k/uL RBC (3.80-5.40) m/uL Hgb (11.4-16.0) gm/dL Hct (34.0-46.0) % MCV (80.0-100.0) fL MCH (25.0-35.0) pg MCHC (31.0-37.0) g/dL RDW (11.5-15.5) % Plt Count (150-450) k/uL MPV Neutrophils % % Lymphocytes % % Monocytes % % Eosinophils % % Basophils % % Neutrophils # (1.3-7.7) k/uL Lymphocytes # (1.0-4.8) k/uL Monocytes # (0-1.0) k/uL Eosinophils # (0-0.7) k/uL Basophils # (0-0.2) k/uL PT (10.0-12.5) sec INR (<1.2) APTT (22.0-30.0) sec Sodium 135 L (137-145) mmol/L Potassium 4.0 (3.5-5.1) mmol/L Chloride 98 (98-107) mmol/L Carbon Dioxide 31 H (22-30) mmol/L Anion Gap 6 mmol/L BUN 15 (7-17) mg/dL Creatinine 0.40 L (0.52-1.04) mg/dL Est GFR (CKD-EPI)AfAm >90 (>60 ml/min/1.73 sqM) Est GFR (CKD-EPI)NonAf >90 (>60 ml/min/1.73 sqM) Glucose 127 H (74-99) mg/dL Plasma Lactic Acid Derrick 2.3 H* (0.7-2.0) mmol/L Calcium 8.8 (8.4-10.2) mg/dL Total Bilirubin 0.7 (0.2-1.3) mg/dL AST 44 H (14-36) U/L ALT 85 H (4-34) U/L Alkaline Phosphatase 92 (38-126) U/L Total Protein 6.6 (6.3-8.2) g/dL Albumin 3.5 (3.5-5.0) g/dL Amylase 51 (30-110) U/L Lipase 84 (23-300) U/L Urine Color Urine Appearance (Clear) Urine pH (5.0-8.0) Ur Specific Preston (1.001-1.035) Urine Protein (Negative) Urine Glucose (UA) (Negative) Urine Ketones (Negative) Urine Blood (Negative) Urine Nitrite (Negative) Urine Bilirubin (Negative) Urine Urobilinogen (<2.0) mg/dL Ur Leukocyte Esterase (Negative) Urine RBC (0-5) /hpf Urine WBC (0-5) /hpf Ur Squamous Epith Cells (0-4) /hpf Urine Bacteria (None) /hpf Urine Mucus (None) /hpf Disposition Clinical Impression: Abdominal pain Disposition: HOME SELF-CARE Condition: Fair Instructions (If sedation given, give patient instructions): Abdominal Pain (ED) Is patient prescribed a controlled substance at d/c from ED?: No Referrals: Jovon Mejía DO [Primary Care Provider] - 1-2 days Time of Disposition: 15:03
[2023-08-01 13:22] LABS: Partial Thromboplastin Time 22.4 sec (22.0-30.0); Prothrombin Time 10.8 sec (10.0-12.5)
[2023-08-01 13:25] LABS: ALT 85 U/L (4-34); AST 44 U/L (14-36); African American GFR (CKD) >90 (>60 ml/min/1.73 sqM); Albumin 3.5 g/dL (3.5-5.0); Alkaline Phosphatase 92 U/L (38-126); Amylase 51 U/L (30-110); Anion Gap 6 mmol/L; Blood Urea Nitrogen 15 mg/dL (7-17); Calcium 8.8 mg/dL (8.4-10.2); Carbon Dioxide 31 mmol/L (22-30); Chloride 98 mmol/L (98-107); Glucose 127 mg/dL (74-99); Lipase 84 U/L (23-300); Non-African American GFR(CKD) >90 (>60 ml/min/1.73 sqM); Sodium 135 mmol/L (137-145); Total Bilirubin 0.7 mg/dL (0.2-1.3); Total Protein 6.6 g/dL (6.3-8.2)
[2023-08-01 13:30] LABS: Basophils % (A) 0 %; Eosinophils % (A) 0 %; HCT 38.3 % (34.0-46.0); HGB 13.4 gm/dL (11.4-16.0); Lymphocytes # (A) 0.5 k/uL (1.0-4.8); Lymphocytes % (A) 4 %; MCH 32.7 pg (25.0-35.0); MCHC 34.9 g/dL (31.0-37.0); Mean Platelet Volume 9.5; Monocytes # (A) 0.5 k/uL (0-1.0); Monocytes % (A) 4 %; Neutrophils # (A) 13.5 k/uL (1.3-7.7); Neutrophils % (A) 92 %; Platelet Count 225 k/uL (150-450); RBC 4.09 m/uL (3.80-5.40); RDW 12.8 % (11.5-15.5); WBC 14.6 k/uL (3.8-10.6)
[2023-08-01 13:32] LABS: MCV 93.6 fL (80.0-100.0)
[2023-08-01 14:07] LABS: Appearance,Urine Clear (Clear); Bacteria,Urine Occasional /hpf; Bilirubin,Urine Negative (Negative); Blood,Urine Negative (Negative); Color,Urine Yellow; Glucose,Urine (UA) Negative (Negative); Ketones,Urine Negative (Negative); Leukocyte Esterase,Urine Moderate (Negative); Mucus,Urine Rare /hpf; Nitrite,Urine Negative (Negative); PH, Urine 6.5 (5.0-8.0); Protein,Urine Negative (Negative); RBC,Urine 1 /hpf (0-5); Specific Gravity,Urine 1.016 (1.001-1.035); Squamous Epithelial Cell,Urine 5 /hpf (0-4); Urobilinogen,Urine <2.0 mg/dL (<2.0); WBC,Urine 2 /hpf (0-5)
--- NOTE | 2023-08-01 14:30 | CT ---
EXAMINATION TYPE: CT abdomen pelvis w con DATE OF EXAM: 08/01/2023 COMPARISON: 12/17/2019 INDICATION: abd pain DLP: 828 mGycm, Automated exposure control for dose reduction was used. CONTRAST: 100 mL of Isovue 300. Study performed without Oral Contrast TECHNIQUE: Axial images were obtained from above the diaphragm to the pubic rami in the axial plane a t 5 mm thick sections. Reconstructed images are reviewed on the computer in the coronal plane. FINDINGS: Limited CT sections are obtained the lung bases. The lung bases are clear. CT ABDOMEN: Liver: Normal Spleen: Normal Pancreas: Normal Adrenal glands: The adrenal glands are normal. Gallbladder: Normal Kidneys: No masses are evident. No hydronephrosis is present. No cysts are present. Delayed images were obtained through the kidneys, which remain unremarkable. Aorta: Vascular calcification is within the aorta. Inferior vena cava: Normal. CT PELVIS: Loops of bowel within the abdomen and pelvis are normal. There are loops of bowel which are incom pletely distended or lack oral contrast limiting their evaluation. Diverticular changes are within th e sigmoid colon. No acute diverticulitis. Shunt catheter is within the right abdomen. Appendix: Appears to be the appendix is normal. No suspicious dilated structure inflammatory changes evident Urinary bladder: Normal. Genitourinary structures: Prostate is prominent Osseous structures: No suspicious lytic or sclerotic lesions. IMPRESSION: 1. Diverticulosis without acute diverticulitis.
[2023-08-01 15:02] VITALS: BP 146/76; PULSE 54; RESP 18
[2023-08-01 15:42] VITALS: TEMP 98
== END 2023-08-01 15:19 | disposition home or self-care (01) ==
LOC: EC 12:18
DX: K57.32 Diverticulitis of large intestine without perforation or abscess without bleeding (principal); Z87.891 Personal history of nicotine dependence; Z88.0 Allergy status to penicillin; Z88.7 Allergy status to serum and vaccine; Z88.5 Allergy status to narcotic agent; Z88.8 Allergy status to other drugs, medicaments and biological substances
CPT/HCPCS: 99284; 96374; 36415; 80053; 82150; 83605; 83690; 85025; 85610; 85730; 81001; 74177; J1170; Q9967

== ENCOUNTER → 2024-02-25 | Outpatient (CLI) | payer MEDICARE ==
--- NOTE | 2024-02-25 16:34 | MR ---
EXAMINATION TYPE: MR lumbar spine wo con DATE OF EXAM: 02/25/2024 COMPARISON: None HISTORY: 69-year-old female M47.816,M54.16,51.26 LSPIN, Back Pain for years, Center Pain mostly and s ometimes to the Right TECHNIQUE: Multiplanar, multisequence images of the lumbar spine were acquired without IV contrast. FINDINGS: Moderate degenerative disc disease mid to lower lumbar spine with desiccation and bulging discs. Post erior annular fissures at both L4-L5 and L5-S1. Acute to subacute superior end plate Schmorl's node L4. There is prominent edematous Modic type I end plate change at L5-S1. Otherwise, no suspicious bone marrow replacement. Mild to moderate facet arthropathy throughout. Conus medullaris is normal. Vertebral body heights are preserved and alignment is maintained. Bulging disc at L2-L3 and L3-L4 contributes to mild narrowing of the spinal canal. Minimal inferior f oraminal narrowing on both sides at these levels. At L4-L5, broad-based posterior disc bulge with annular fissure abuts the traversing L5 nerve roots o n both sides. With ligamentum flavum thickening, there is mild narrowing of the spinal canal. Additio nal facet arthropathy with mild to moderate right and mild left neuroforaminal stenosis. At L5-S1, there is diffuse disc bulge with superimposed posterior disc protrusion, ligamentum flavum thickening, and facet arthropathy. Disc material abuts the traversing S1 nerve roots on both sides an d contributes to moderate to severe bilateral neural foraminal stenoses, left greater than right. No prevertebral or paravertebral soft tissue abnormality seen. IMPRESSION: 1. Moderate degenerative disc disease lower lumbar spine. Degenerative changes greater at L5-S1 where there is also prominent edematous Modic type I endplate change. Acute to subacute superior endplate Schmorl's node of L4. Posterior annular fissures at both L4-L5 and L5-S1. 2. Overall moderate spinal canal stenosis at L5-S1 with disc material abutting the bilateral traversi ng S1 nerve roots. Along with facet arthropathy, there are moderate to severe bilateral neuroforamina l stenoses here, left greater than right. 3. Mild spinal canal stenoses from L2 through L5 levels due to bulging discs. Disc material at L4-L5 may abut the bilateral traversing L5 nerve roots. [id number] right neuroforaminal stenosis at t his level. [facility], , 02/25/2024 4:32 PM
== END | disposition home or self-care (01) ==
LOC: RADMRIMAIN 13:06
PROVIDERS: ATTEND Orthopaedic Surgery
CPT/HCPCS: 72148

== ENCOUNTER 2024-06-19 10:31 | Day surgery (SDC) | payer MEDICARE ==
[~2024-06-19 10:31] MED LIST changes: -LACTATED RINGERS 1,000 ML IV SCH; +MIDAZOLAM 2 MG/2 ML VIAL IV PRN; +TRANEXAMIC 1,000 MG/100ML-NACL 1,000 MG in SALINE 1 100ML.BAG IVPB PRN; +fentaNYL (PF) 50 MCG/ML 2 ML AMP IV PRN
[2024-06-19] MEDS: IV FLUID CONTINUATION 1,000 ML IV ONE ×2 (10:50)
[2024-06-19] MEDS: ACETAMINOPHEN TAB 500 MG TAB PO PRN (11:41)
[2024-06-19] MEDS: GABAPENTIN 300 MG CAP PO PRN (11:42)
[2024-06-19] MEDS: ONDANSETRON 4 MG/2 ML VIAL IVP PRN ×2 (11:42→16:51)
[2024-06-19] MEDS: FAMOTIDINE 20 MG/2 ML VIAL IV STA (11:43)
[2024-06-19] MEDS: DEXAMETHASONE SOD PHOSPHATE 4 MG/ML 1 ML VIAL IVP STA (11:43)
[2024-06-19] MEDS: IPRATROPIUM-ALBUTEROL 3 ML NEB INHALATION STA (11:44)
--- NOTE | 2024-06-19 13:21 | P.HPOR ---
History of Present Illness H&P Date: 06/19/24 .D:Date: 03/16/24 : 05:32pm .T:Title: [facility] [address] [place], [place] [address] [address]| PROVIDER: YAMILET BARROSO DO CLINICAL SUMMARY: Ms. 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 Imaging reveals severe spondylytic changes at L4-5 and L5-S1 with severe modic changes, disc collapse, herniation, and osteophyte/disc complex causing severe central and bilateral foraminal stenosis. The patient demonstrates functional decline affecting daily activities and sleep, with symptoms exacerbated by [id number] transitions, prolonged walking, bending, and twisting. Conservative measures including physical therapy and medication management with Tramadol and Aspirin have been unsuccessful. After thorough discussion of risks and benefits, patient has elected to proceed with minimally invasive L5-S1 posterolateral and interbody fusion with decompression, utilizing Knippa Everst rods and screws and Globus Sable cages. Surgical intervention is deemed medically necessary due to documented progressive neurological decline, severe multilevel degenerative changes with significant neural compression, and risk of permanent neurological impairment without intervention. 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 Braxton presents to pre op today for her surgery, of her lumbar spine. Patient continues to report pain across her lumbar region that is increased with sit to stand, prolonged walking, bending, and twisting. Patient states physical therapy has been discontinued due to her making no progress. She states she feels she has exhausted all conservative measures and would like to consider surgical options. Patient states her pain is making it difficult for her to complete her activities of daily living. Patient is having night time sleep disturbances due to her symptoms. She is taking Tramadol and Aspirin without resolution of her symptoms. Patient ambulates independently. * Patient denies any f/c/sob/cp, perineal numbness or tingling, bowel, or bladder incontinence/retention. * The patients past social, medical, family, surgical history, as well as review of systems, have been reviewed. Please refer to the History and Physical form that has been scanned into our electronic medical record system. * 16 points review of systems completed and as stated in HPI, all other systems reviewed are negative. PAST TREATMENTS: PAST IMAGING: -YES, MRI - TRAUMA RELATED: -NO - WORK RELATED: -NO - PT IN LAST 6 MONTHS: -YES, no relief worsened symptoms - PHYSICIAN DIRECTED HOME EXERCISE PROGRAM: -YES - ACTIVITY MODIFICATION: -YES - MEDICATIONS: -YES, Tramadol and Aspirin - ALTERNATIVE INTERVENTIONS (CHIROPRACTIC, ACCUPUNCTURE, MASSAGE, RICE): -YES - BRACING: -NO - INJECTIONS (ILDA, TF, RFA): -NO - MEDICAL HISTORY: Past Medical History: REVIEWED STATED IN CHART Past Surgical History: REVIEWED STATED IN CHART Social History: REVIEWED STATED IN CHART SMOKING: Never smoker ETOH: None SUBSTANCES: None Family History: REVIEWED STATED IN CHART P1 Current Medications: Rx: aspirin 81 mg tablet,delayed release Ref: 0 Instructions: take 1 tablet (81 mg) by oral route once daily Rx: atorvastatin 40 mg tablet Ref: 0 Instructions: take 1 tablet (40 mg) by oral route once daily Rx: clopidogreL 75 mg tablet Ref: 0 Instructions: take 1 tablet (75 mg) by oral route once daily Rx: Fiber Supplement Ref: 0 Rx: hydroCHLOROthiazide 12.5 mg capsule Ref: 0 Instructions: take 1 capsule (12.5 mg) by oral route once daily Rx: levothyroxine 112 mcg tablet Ref: 0 Instructions: take 1 tablet (112 mcg) by oral route once daily Rx: losartan 50 mg tablet Ref: 0 Instructions: take 1 tablet (50 mg) by oral route once daily Rx: metoprolol succinate ER 25 mg tablet,extended release 24 hr Ref: 0 Instructions: take 1 tablet (25 mg) by oral route once daily Rx: Multi Vitamin Ref: 0 Rx: omeprazole 20 mg capsule,delayed release Ref: 0 Instructions: take 1 capsule (20 mg) by oral route once daily 30 minutes to 1 hour before a meal Rx: Vitamin D3 Ref: 0 Rx: traMADol Ref: 0 Instructions: as needed P1 PHYSICAL EXAM: General: AOX3, NAD, Well hydrate, well nourished HEENT: No lumps or masses Extremities: No color changes, no pooling INTEGUMENT: Appearance: Normal color and turgor Surgical Incisions: N/A Hairy Patches: ABSENT Dorsal Skin Dimples: Normal [employer] spots: ABSENT PALPATION: TTP Midline: YES Paracervical: NO Parathoracic: NO Paralumbar: YES SIJ TESTING (Jacklyn's, FABER4, Compression, Distraction, Thigh Thrust, Hip Thrust): TESTED/NOT TESTED * POSITIVE FINDINGS: NA NEGATIVE FINDINGS: Jacklyn's, FABER4, Compression, Distraction, Thigh Thrust, Hip Thrust POSTURAL BALANCE: Coronal: BALANCED Sagittal: BALANCED Shoulder height: LEVEL Pelvic Girdle: LEVEL ROM AND APPEARANCE: Neck: UNRESTRICTED Lumbar: RESTRICTED with severe pain Shoulders: Symmetrical Hips: Symmetrical Knees: Symmetrical Hands: Symmetrical Feet: Symmetrical VASCULAR STATUS: PALPABLE PULSES B/L UE AND LE 2/4 RAD/ULNAR/DP/PT Edema: NONE NEUROLOGICAL EXAMINATION: Mental Status: Awake, alert, fully oriented with normal attention, concentration, and memory. Fluent appropriate speech. CRANIAL NERVES: I: Olfactory not assessed. II: Visual acuity normal, no visual field deficit noted with confrontation. III, IV: Normal pupillary reflexes & intact extraocular movements without nystagmus. V, : Intact symmetrical facial sensation. VII: Intact symmetrical facial motor movement: Hearing intact. IX, X: Intact gag, swallow, & normal voice. XI: Sternocleidomastoid, trapezius function intact. XII: Tongue midline with normal movements. TENSIONING: * L'HERMITTE'S SIG:NEG SPURLUNG'S SIGN:NEG UPPER EXTREMITY TENSIONING SIGNS: NEG CUBITAL TUNNEL COMPRESSION:NEG TINELS AT WRIST:NEG STRAIGHT LEG RAISE:POS BLE CONTRALATERAL STRAIGHT LEG RAISE: POS R MOTOR EXAM (0-5/5, NT) Muscle appearance: Symmetrical, without signs of atrophy or dystrophy UPPER EXTREMITY RIGHT LEFT Shoulder Abduction 5 5 Biceps 5 5 Triceps 5 5 Wrist Extension 5 5 Hand Intrinsics 5 5 Student Services Counselor 5 5 LOWER EXTREMITY RIGHT LEFT Hip Flexion 4 4 Knee Extension 4 4 Knee Flexion 4 4 Dorsiflexion 4 4 Plantarflexion 4 4 EHL 4 4 FHL 4 4 REFLEXES (0-4/2, NT): RIGHT LEFT Bicep 2 2 Brachioradialis 2 2 Triceps 2 2 Patellar 2 2 Achilles 1 1 PATHOLOGICAL REFLEXES: RIGHT LEFT SHANNON'S ABSENT ABSENT CLONUS ABSENT ABSENT BABINSKI ABSENT ABSENT RECTAL TONE: INTACT/NT SENSATION (0-4, NT): Sensation intact to LT and Pain * C5-T1 distribution BUE * L2-S2 distribution BLE *Exceptions below* DERMATOMAL DEFICIT/RADICULAR PATTERN: L5-S1 GAIT AND FUNCTIONAL EVALUATION: AMBULATORY AID NONE ROMBERG'S TEST INTACT HAND AND FINGER DEXTERITY INTACT YES DYSDIADOCHOKINESIA EXAM NEG B/L YES TOE/HEEL WALK INTACT WITH GOOD BALANCE NO SQUAT AND RISE W/O ASSISTANCE TO 60 DEG KNEE FLEXION NO SINGLE LEG STANCE INTACT TRENDELENBURG NEG IMAGING: XRAY Date: 12/17/23 Location: [facility] Region: Lumbar/Pelvis Views: MV IMAGES ARE REVIEWED WITH THE PATIENT IN OFFICE AND DEMONSTRATE THE FOLLOWING: FINDINGS: Severe multilevel spondylitic and degenerative changes withL4-S1 collapse that is severe. Severe disc height los L5-S1 with vacuum disc phenomenon. Vertebral body heights are preserved except for L4 where there is slight superior endplate changes, these are chronic. L4-5 show severe spondylotic changes with disc height loss, sclerosis, facet arthrosis as well that is severe. No acute fractures or lesions noted. MRI Date: 02/25/24 Location: [facility] Region: Lumbar Contrast: N IMAGES ARE REVIEWED WITH THE PATIENT IN OFFICE AND DEMONSTRATE THE FOLLOWING: FINDINGS: Severe spondylytic changes L4-5 and L5-S1 with severe modic changes in L5 and S1 with disc collapse, herniation, osteophyte/disc complex causing sever central and b/l foraminal stenosis at this level. At L4-5 there is moderate to severe spondylytic changes along with flattned lordosis due to the collapse, degenerative HNP causing moderate central and lateral recess stenosis. Facet arthrospathy and hypertrophy cause severe b/l foraminal stenosis at this level along with ligamental changes and hypertrophy. No lesions noted. No fractures noted. IMPRESSION: It was my pleasure to have seen and examined Bella. I reviewed the patient's clinical syndrome, physical findings, and imaging studies during the appointment today. It is my impression that the patient has a diagnosis of. 1.L4-5 and L5-S1 spondylosis with stenosis 2.Lower extremity radiculopathy 3.Right lower extremity radiculopathy 4. Low back pain PLAN: DISCUSSION: -I have discussed with the patient their clinical signs and symptoms, imaging, and treatment options. We have discussed risks, benefits, potential outcomes and natural course as pertains top their issues. The patient understands and would like to proceed as follows below: SURGICAL RECOMMENDATION -L4-S1 POSTEROLATERAL AND INTERBODY FUSION WITH DECOMPRESSION -APPROACH: MINIMALLY INVASIVE POSTERIOR -IMPLANTS: HOLLY EVERST RODS AND SCREWS, GLOBUS SABLE CAGES -BONE GRAFT: LOCAL AUTOGRAFT; ALLOGRAFT, DBM -INPATIENT: EXPECTED STAY 1-2 DAYS -EXPECTED DISPO: HOME WITH SELF CARE AND HOME HEALTH CARE, AND HOME PT; DAY 1 OR 2 POST OP -FOLLOW UP PCP FOR CLEARANCES -PRE OP LABS, CBC, BMP, PT, INR, TYPE AND SCREEN; EKG AND CXR FOR CLEARANCES -PRE OP ASSESSMENT 1 WEEK BEFORE SURGERY -CT LUMBAR SPINE ORDERED FOR PRE OP PLANNIG Spine Surgery Risk Review Ms. Braxton is presenting for evaluation of lumbar pain. It was my pleasure to have seen and examined Ms. Braxton. In our visit today we have had a chance to go over subjective complaints, physical examination findings and treatments including the natural course history without intervention and various interventional options. The patients imaging demonstrates: XRAY Date: 12/17/23 Location: [facility] Region: Lumbar/Pelvis Views: MV IMAGES ARE REVIEWED WITH THE PATIENT IN OFFICE AND DEMONSTRATE THE FOLLOWING: FINDINGS: Severe multilevel spondylitic and degenerative changes withL4-S1 collapse that is severe. Severe disc height los L5-S1 with vacuum disc phenomenon. Vertebral body heights are preserved except for L4 where there is slight superior endplate changes, these are chronic. L4-5 show severe spondylotic changes with disc height loss, sclerosis, facet arthrosis as well that is severe. No acute fractures or lesions noted. MRI Date: 02/25/24 Location: [facility] Region: Lumbar Contrast: N IMAGES ARE REVIEWED WITH THE PATIENT IN OFFICE AND DEMONSTRATE THE FOLLOWING: FINDINGS: Severe spondylytic changes L4-5 and L5-S1 with severe modic changes in L5 and S1 with disc collapse, herniation, osteophyte/disc complex causing sever central and b/l foraminal stenosis at this level. At L4-5 there is moderate to severe spondylytic changes along with flattned lordosis due to the collapse, degenerative HNP causing moderate central and lateral recess stenosis. Facet arthrospathy and hypertrophy cause severe b/l foraminal stenosis at this level along with ligamental changes and hypertrophy. No lesions noted. No fractures noted. On physical exam, Ms. Braxton demonstrates: Patient continues to report pain across her lumbar region that is increased with sit to stand, prolonged walking, bending, and twisting. Patient states physical therapy has been discontinue due to her making no progress. She states she feels she has exhausted all conservative measures and would like to consider surgical options. Patient states her pain is making it difficult for her to complete her activities of daily living. Patient is having night time sleep disturbances due to her symptoms. She is taking Tramadol and Aspirin without resolution of her symptoms. I have explained to the patient that as their condition progresses it will cause further neurological deficits and eventual paralysis. Based on the patients imaging, physical exam, and the rapid progression and disabling nature of their symptoms, at this time I recommend surgery in the form of a: ME PLIBF L5-S1. I discussed the risk and benefits of this procedure at length with Ms. Braxton. The patient and s/o agreed to considered pursuing the procedure abovementioned. Prior to surgery, she should follow up with her PCP (Cardio, ID, IM etc) for c learance. Questions were invited and answered, and the patient wishes to proceed as outlined below. Currently, I am recommendin.L5-S1 POSTEROLATERAL AND INTERBODY FUSION WITH DECOMPRESSION -APPROACH: MINIMALLY INVASIVE POSTERIOR -IMPLANTS: HOLLY EVERST RODS AND SCREWS, GLOBUS SABLE CAGES -BONE GRAFT: LOCAL AUTOGRAFT; ALLOGRAFT, DBM -INPATIENT: EXPECTED STAY 1-2 DAYS -EXPECTED DISPO: HOME WITH SELF CARE AND HOME HEALTH CARE, AND HOME PT; DAY 1 OR 2 POST OP 2.Follow up with PCP for surgical clearance 3.Review of surgical risks and benefits as well as an educational packet on the proposed surgical procedure. Risks: All surgical procedures come with inherent risks, including those related to positioning, anesthesia, intraoperative findings, and postoperative complications. It is important to understand that surgery does not come with any guarantee of a successful outcome as complications and adverse events are always possible. The patient was given a handout in office today discussing the surgical procedure and risks associated with the intervention, both of which were discussed with the patient. These risks include but are not limited to the following: * Experiencing same, different or even worse symptoms in back, neck, arms, or legs compared to before surgery. Requiring further surgery or other forms of treatment presently or at some time in the future at same or other levels of the intended spine surgery. On an extreme but fortunately relatively rare basis severe complication such as blindness, stroke, heart attack, temporary and/or permanent nerve injury, paralysis, coma, or may occur, sometimes without known explanation. Surgical complications may include but are not limited to risk of infection, fluid accumulation in the surgical dissection site, including a seroma or hematoma, that requires additional surgery, wound drainage, bleeding, new numbness or weakness, vision changes/loss, spinal fluid leakage, non-healing and/or infected incision, headaches, difficulty or inability to swallow, hoarseness, hemopneumothorax, pneumothorax, impotence, retrograde ejaculation, vaginal dryness; injury to nerves, spinal cord, blood vessels, lymphatics or other vital organs (i.e., bowel injury, injury to the great vessels); heterotopic bone formation; complications related to the hardware such as screws, rods, cages including misplaced hardware, device failure, instrumentation at the wrong spine level, hardware fracture/breakage, or hardware loosening; vertebral failure of the spinal column above or below the newly placed hardware; retained surgical instrumentations or devices and the need for further surgery. * Medical risks of the planned spine surgery include but are not limited to generalized Infections to the whole body or local areas outside of the surgical site (sepsis), heart attack, bleeding, anaphylaxis, meningitis, seizure, epilepsy, hearing loss, burn watson, laceration of the head or other areas of the body, bruising, hypersensitivity of the skin, bladder over distension; allergic reaction; shoulder injury related to positioning; fat, blood and air clots to other areas of the body like heart, lungs, brain; fa ilure of internal organs such as lungs, kidneys, liver and excessive bleeding. If blood transfusions are necessary, note that transfusions may cause intolerance reactions such as anaphylaxis or other complex reactions. Despite best efforts, the results of spine surgery might not heal in terms of bone, soft tissues such as skin, fascia, ligaments, and joints. Additionally, in order to achieve best possible results, spine surgery may be carried out beyond the initially planned levels and involve decompression, fusion including insertion of hardware at levels other than the original intended area of surgical interest change some portions of the procedure in order to ensure the best possible outcomes. With spine surgery and spinal fusion, there are different off label uses of instrumentation (devices, implants and hardware) as well as biological substances (bone morphogenic proteins, demineralized bone matrix) as well as using extra bone from allograft sources (i.e. cadaver bone) or autograft (iliac crest bone, ribs, or the spine itself). The patient has been given information about these practices and their inherent risks and benefits. Former[facility] is an educational center that serves as a training facility for neurosurgical and orthopedic PERFUMER and Nursing students. Physician assistants are medically trained surgical providers who function in the outpatient, inpatient, and operating room setting under the direct supervision of the attending surgeon. Formerly [facility] has multiple operating rooms with single and overlapping rooms running daily. They currently function under the required guidelines as produced by the [facility] Finance Committee with regards to the overlapping rooms and will continue to comply with changes to this policy as they occur. The requ irements include and are complied with as follows: (1) the critical portions of the overlapping rooms will not occur at the same time, (2) the attending physician will be physically present during the critical portions of the procedure and immediately available during the entire case, and (3) a back-up attending is designated should the primary attending not be immediately available. The patient has had a chance to review all the listed information, has been given print outs detailing this information, and has had all his/her questions answered to their satisfaction. It was my pleasure to have seen and examined Ms. Braxton. In our visit today we have had a chance to go over my understanding of our patient's current condition, the natural course history without intervention and various int erventional options. Questions were invited and answered, and the patient wishes to proceed as outlined above. I have seen and examined the patient for 25 minutes and we have spent more than 50% of the time in repeat and detailed counseling about the patient's condition, its natural course history with out and as much as can be predicted with surgery and re-review of various surgical treatment options. In conclusion, Ms. Braxton requested we proceed with the above suggested surgery and are willing to accept risks and limitations of the suggested surgery as nature of the disease process and our best attempts at treatment for the condition. Surgical Rationale: Minimally invasive L4-S1 posterolateral and interbody fusion with decompression is indicated based on: (1) Failed conservative management including physical therapy and medications; (2) Progressive functional decline affecting daily activities and sleep; (3) Objective neurological deficits with bilateral lower extremity weakness and positive tension signs; (4) Advanced imaging showing severe multilevel degenerative changes with significant neural compression; and (5) Development of sagittal plane deformity with loss of lordosis requiring stabilization. Medical Necessity: Surgical intervention is medically necessary due to documented progressive neurological decline and failed conservative measures. The patient demonstrates severe multilevel degenerative changes with significant neural compression, confirmed by both MRI and X-ray findings. The presence of vacuum disc phenomenon and Modic changes indicates advanced degenerative process with structural instability. The combination of mechanical back pain and neurogenic claudication symptoms, along with objective neurological deficits and radiographic findings of severe stenosis, supports the need for both decompression and stabilization. Without surgical intervention, the patient is at risk for continued functional decline and potential permanent neurological impairment. The minimally invasive approach offers the benefit of decreased tissue trauma while achieving necessary decompression and stabilization. FOLLOW UP: POST OP PLAN AT NEXT VISIT: RECHECK PATIENT EDUCATION: Medications Reviewed: YES In our visit today Ms. Braxton and I have had a chance to go over my understanding of the patient's current condition, the natural course history without intervention and various interventional options. Questions were invited and answered, and the patient wishes to proceed as outlined above. I will be sure to keep you updated after Ms. Braxton returns here for further follow-up. Thank you again for your referral. Please do not hesitate to contact me if you have any further questions. Signed and authenticated by: Yamilet Molina [facility] [address] [place] [id number] . This message is confidential, intended only for the named recipient(s) and may contain information that is privileged or exempt from disclosure under applicable law. If you are not the intended recipient(s), you are notified that the dissemination, distribution or copying of this information is prohibited. If you received this message in error, please notify the sender then delete this message. # SIGNED BY Yamilet Barroso (GOO)03/26/2024 02:18PM Past Medical History Past Medical History: Coronary Artery Disease (CAD), Cancer, COPD, GERD/Reflux, Hyperlipidemia, Hypertension, Myocardial Infarction (ME), Thyroid Disorder Additional Past Medical History / Comment(s): hepatits as a child, latent TB at 31 years old, breast cancer 25 yrs. ago-had surg.,chemo & radiation, benign intracranial hypertension. uses oxygen if gets cold/bronchitis-will use @[facility] 3l Last Myocardial Infarction Date:: 2006 History of Any Multi-Drug Resistant Organisms: None Reported Past Surgical History: Breast Surgery, Heart Catheterization With Stent Additional Past Surgical History / Comment(s): heart stents x5, partial left mastectomy, FAMILY INTERVENTION SPECIALIST shunt. jaw surg. for underbite-steel plate on left side, lula. cataracts removed Past Anesthesia/Blood Transfusion Reactions: Previous Problems w/ Anesthesia Additional Past Anesthesia/Blood Transfusion Reaction / Comment(s): pt is combative if not in deep anesthesia, takes alot to put pt. out Date of Last Stent Placement:: 2021 Smoking Status: Current every day smoker - Past Family History Father Family Medical History: Cancer Additional Family Medical History / Comment(s): Multi myeloma Mother Family Medical History: Cancer Additional Family Medical History / Comment(s): Breast cancer Medications and Allergies Home Medications Medication Instructions Recorded Confirmed Type Clopidogrel [Plavix] 75 mg PO HS 12/07/19 06/19/24 History Losartan/Hydrochlorothiazide 1 tab PO DAILY PRN 12/07/19 06/19/24 History [Losartan-Hctz 50-12.5 mg Tab] Omeprazole [PriLOSEC] 20 mg PO BID 12/07/19 06/19/24 History Aspirin 81 mg PO DAILY 09/17/22 06/19/24 History Levothyroxine Sodium [Synthroid] 112 mcg PO DAILY 09/17/22 06/19/24 History Atorvastatin [Lipitor] 40 mg PO HS 07/26/23 06/19/24 History Metoprolol Succinate (ER) [Toprol 25 mg PO DAILY 07/26/23 06/19/24 History XL] Multivit-Min/FA/Lycopen/Lutein 1 tab PO DAILY 07/26/23 06/19/24 History [Centrum Silver Tablet] Psyllium Husk [Fiber Capsule] 0.4 gm PO DAILY 07/26/23 06/19/24 History Albuterol Inhaler [Ventolin Hfa 1 - 2 puff INHALATION Q6H PRN 06/15/24 06/19/24 History Inhaler] Fluticasone/Umeclidin/Vilanter 1 inhalation INHALATION DAILY 06/15/24 06/19/24 History [Trelegy Ellipta 100-62.5-25] traMADol HCL 50 mg PO Q12H 06/15/24 06/19/24 History Allergies Allergy/AdvReac Type Severity Reaction Status Date / Time amoxicillin Allergy Rash/Hives Verified 06/19/24 11:00 influenza virus vaccine, Allergy Rash/Hives Verified 06/19/24 11:00 specific Tetracyclines Allergy Rash/Hives Verified 06/19/24 11:00 codeine AdvReac SYNCOPE Verified 06/19/24 11:00 Physical Examination Osteopathic Statement: *. No significant issues noted on an osteopathic structural exam other than those noted in the History and Physical/Consult.
[2024-06-19] MEDS ORDERED: PHENYLEPHRINE 10 MG/ML VIAL ONE (13:25)
[2024-06-19] MEDS ORDERED: ROCURONIUM 10 MG/ML (5 ML VIAL) IV ONE (13:25)
[2024-06-19] MEDS ORDERED: NEOSTIGMINE 1 MG/ML 10 ML VIAL ONE (13:25)
[2024-06-19] MEDS ORDERED: LIDOCAINE 1% INJ 10MG/ML (20 ML MDV) ONE (13:25)
[2024-06-19] MEDS ORDERED: GLYCOPYRROLATE 0.2 MG/ML 2 ML VIAL ONE (13:25)
[2024-06-19] MEDS ORDERED: SUCCINYLCHOLINE CHLORIDE 200 MG/10 ML VIAL IV ONE (13:25)
[2024-06-19] MEDS ORDERED: TRANEXAMIC 1,000 MG/100ML-NACL PREMIX BAG ONE (13:25)
[2024-06-19] MEDS ORDERED: KETAMINE HCL IN 0.9 % NACL 50 MG/5 ML SYRINGE ONE (13:25)
[2024-06-19] MEDS ORDERED: PROPOFOL 10 MG/ML 20 ML VIAL IV ONE (13:25)
[2024-06-19] MEDS ORDERED: fentaNYL (PF) 50 MCG/ML 2 ML AMP ONE (13:25)
[2024-06-19] MEDS: THROMBIN (BOVINE) 5,000 UNIT VIAL TOPICAL ONE (14:28)
[2024-06-19] MEDS: LIDOCAINE 2%-EPI 1:100,000 20 ML VIAL SQ ONE ×2 (14:30)
[2024-06-19] MEDS: BUPIVACAINE (PF) 0.25% 30 ML VIAL SQ ONE ×2 (14:30)
--- NOTE | 2024-06-19 15:37 | P.OP ---
Date of Procedure: 06/19/24 Preoperative Diagnosis: 1.L4-5 and L5-S1 spondylosis with stenosis 2.Lower extremity radiculopathy 3.Right lower extremity radiculopathy 4. Low back pain Postoperative Diagnosis: 1.L4-5 and L5-S1 spondylosis with stenosis 2.Lower extremity radiculopathy 3.Right lower extremity radiculopathy 4. Low back pain Procedure(s) Performed: 1. L5-S1 VERTEBRAL BODY OSTEOTOMY FOR DEFORMITY CORRECTION 2. L5-S1 POSTEROLATERAL AND INTERBODY FUSION 3. L5-S1 POSTEROLATERAL INSTRUMENTATION, RODS AND SCREWS 4. L5-S1 LAMINECTOMY, FACETECTOMY AND FORAMINOTOMY FOR DEFORMITY CORRECTION, COMPLETE NEURAL DECOMPRESSION AND CAGE PLACEMENT 5. L5-S1 PLACEMENT OF INTERBODY DEVICE, CAGE x1 6. 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 Imaging reveals severe spondylytic changes at L4-5 and L5-S1 with severe modic changes, disc collapse, herniation, and osteophyte/disc complex causing severe central and bilateral foraminal stenosis. The patient demonstrates functional decline affecting daily activities and sleep, with symptoms exacerbated by [id number] transitions, prolonged walking, bending, and twisting. Conservative measures including physical therapy and medication management with Tramadol and Aspirin have been unsuccessful. After thorough disc ussion of risks and benefits, patient has elected to proceed with minimally invasive L5-S1 posterolateral and interbody fusion with decompression, utilizing Hungry Horse Everst rods and screws and Globus Sable cages. Surgical intervention is deemed medically necessary due to documented progressive neurological decline, severe multilevel degenerative changes with significant neural compression, and risk of permanent neurological impairment without intervention. Description of Procedure: L5-S1 MIS PLIBF ZURI (R) The patient was seen and examined in the preoperative area. All preoperative protocols were followed. Informed consent was obtained, risks and benefits of the procedure were discussed at length. Risks including bleeding infection damage to the surrounding tissue and risk of reoperation were discussed with the patient. Risk of anesthesia up to and including was discussed with the patient. These are outlined in the risk review. They were willing to accept these risks and all the risks of surgery. The patient was given a weight-based dose of antibiotics in the form of 2 g Ancef. The patient was seen and evaluated by the anesthesia team who deemed them fit for surgery. The site was marked, the patient was willing to proceed with the procedure. The patient was transferred to the operative suite by the Department of a nesthesia. They were then drifted off to sleep by the department anesthesia and GETA was performed. The patient tolerated this well. Romero catheter was placed by nursing staff, a-traumatically. Once confirmation of lines and ventilation the patient was transferred to a prone Ancelmo table very carefully. All bony prominences including wrists, elbows, axilla, chest, hips, and thighs, and feet were padded very well. Special attention was paid to the genitalia, and these were padded accordingly. SCDs were placed on bilateral lower extremities and were connected. Arms were well padded and placed on arm boards up and out in the 90/90 position. Once in position, again we confirmed good ventilation capabilities and that lines were running appropriately. The patients Lumbar spine was then exposed. 1010s were placed outlining the incision site. Standard alcohol was used to clean the incision site and allowed to dry. C-arm was used to needle localize the pedicles at L5-S1 and bio-meera the patient and confirm level for incision which was marked with a skin marker. Operative briefing was performed with all teams and everyone in agreement to proceed. The patient was then prepped and draped in a normal sterile fashion. Timeout was then performed, and all parties agreed with the procedure to be performed. Skin nicks were made over the PSIS on the right side and pins placed for the Architizer Navigation tracker. This was secured and then a 3D Zhiem spin was registered. Once registered it was tested and confirmed to be accurate. We then targeted pedicles b/l at L5 and S1 using navigated Jamshidi and drill guide. Wires were then placed in their void and confirmed to be in good position on AP and Lateral. Contralateral right side screws were then placed over wires and tested and they all tested above 20 mA. Attention was then turned to interbody fusion at L5-S1. The tubular retractor system was placed at the interspace of L5-S1 using a biplanar c arm. Once in position and dilated up to 26mm tube it was locked to the bed and confirmed in good position. A microscope was then brought in for visualization. Limited myomectomy was performed and laminectomy, complete facetectomy and foraminotomy performed at L5-S1 using high speed cat and Kerrison rongure. The ligamentum was removed and the dural sac decompressed. Exiting and traversing roots visualized and decompressed. Neural elements were then protected, and disc space accessed with an osteotome. Osteotomy of the S1 body was done for access and of the L5 body for deformity correction. Sequential shaving then done under lateral imaging and complete discectomy performed using kari, pituitary and curette. Once good bleeding endplates accomplished and good height samaritan with trials, a combination of autograft, allograft and synthetic placed anterior in the disc space. The cage was then selected and impacted into place under lateral imaging. The cage was then expanded restoring height, lordosis and alignment. The cage was backfilled with bone graft through a funnel. The valve inserter was removed and the area inspected. Good cage placement, stable cage and no injuries. The area was irrigated copiously, and meticulous hemostasis achieved. The tubular retractor was then removed under direct visualization. Screws were then selected and placed over the previously placed wires on the ipsilateral side. This was done in the fashion described above. Screws were then tested, and all tested above 20 mA. Shells were then placed on the tabs. Edouard length was then measured, and rods selected. They were then placed through the MIS tabs, subfascial. These were then locked into place with set screws and final tightened. Edouard holders removed and images taken showing good placement of rods, good lordosis and samaritan of height. Tabs were broken off. Wounds were then copiously irrigated with NSS. [place] used for TP decortication and mixture of MagnatOs, allograft and autograft packed posterolateral. Facia was then closed with 0 Vircyl. Deep subq closed with 0 Vicryl. Superficial subq closed with 2-0 Vicryl and skin with connor. Wound edges approximated very well. The wound was then cleaned with alcohol and dried. Wounds dressed in Optifoam dressings. The patient was then transferred off the table back to their hospital bed a- traumatically. They were extubated by the department of anesthesia. They were then transferred to PACU in stable condition having tolerated the procedure with no complications.
[2024-06-19] MEDS ORDERED: SENNOSIDES-DOCUSATE SODIUM 1 EACH TAB PO PRN (15:38)
[2024-06-19] MEDS ORDERED: HYDROmorphone 0.5 MG/0.5 ML SYRINGE IVP PRN (15:38)
[2024-06-19] MEDS ORDERED: MAGNESIUM HYDROXIDE 2,400 MG/30 ML CUP PO PRN (15:38)
--- NOTE | 2024-06-19 15:38 | XR ---
EXAMINATION TYPE: XR lumbar spine 2 or 3V, FL guidance operating room Intraoperative/procedural fluor oscopic services were provided. CLINICAL INDICATION:Female, 69 years old with history of LUMBAR STENOSIS, LUMBAR RADICULOPATHY; , PHH FINDINGS: Post surgical changes from L5-S1 posterior fusion with bilateral pedicle screws and rods an d disc hardware. No evidence for complication within the submitted images. Total fluoroscopy time is 45 seconds DAP: 727.01 cGycm2 Please see the operative/procedural note for further details. [facility], , 06/19/2024 3:36 PM
[2024-06-19] MEDS: ACETAMINOPHEN TAB 325 MG TAB PO SCH (16:52)
[2024-06-19] MEDS: HYDROmorphone 1 MG/ML 1 ML SYRINGE IVP PRN (16:53)
[2024-06-19] MEDS: GABAPENTIN 300 MG CAP PO SCH (16:53)
[2024-06-20] MEDS: LACTATED RINGERS 1,000 ML IV SCH (00:22)
[2024-06-20] MEDS ORDERED: ALBUTEROL NEBULIZED 2.5 MG/3 ML INHALATION PRN (08:11)
[2024-06-20] MEDS: PANTOPRAZOLE 40 MG TABLET PO SCH (09:00)
[2024-06-20] MEDS: traMADol 50 MG TAB PO SCH (09:00)
[2024-06-20] MEDS: MULTIVITAMINS, THERA 1 EACH TAB PO SCH (09:00)
[2024-06-20] MEDS: LEVOTHYROXINE 112 MCG TAB PO SCH (09:00)
[2024-06-20] MEDS: METOPROLOL SUCCINATE (ER) 25 MG TAB.ER.24H PO SCH (09:00)
--- NOTE | 2024-06-20 09:07 | CT ---
EXAMINATION TYPE: CT lumbar spine wo con DATE OF EXAM: 06/20/2024 2:30 AM COMPARISON: None. CLINICAL INDICATION: Female, 69 years old with history of s/p L5-S1 MIS PLIF, s/p L5-S1 MIS PLIF, sonja n TECHNIQUE: CT of the lumbar spine is performed on a spiral scan at 3 mm thick sections. Reconstructed images are performed in the coronal and sagittal planes. Contrast used: mL of , (none if empty) Oral contrast used: (none if empty) CT DLP: 856.5 mGycm, Automated exposure control for dose reduction was used. FINDINGS: Small pleural effusions are noted. T12-L1: No focal disc herniation or significant disc bulge is evident. No spinal canal stenosis or neural foraminal stenosis is present. L1-L2: No focal disc herniation or significant disc bulge is evident. No spinal canal stenosis or n eural foraminal stenosis is present L2-L3: Mild disc bulges anterior thecal sac flattening. No AP spinal canal stenosis or neural foramin al stenosis is present. L3-L4: Mild disc bulge is present with mild to moderate anterior thecal sac compression. Facet hypert rophy and ligamentum flavum laxity is posterior lateral thecal sac compression. Some spinal canal marco rowing may be present. Mild bilateral foraminal narrowing is present L4-L5: Broad-based disc bulge and mild anterior thecal sac compression. Superior endplate compression of L4 is present. No spinal canal stenosis is evident. Moderate bilateral foraminal narrowing is pre sent L5-S1: Pedicle screws and fixation rods are in place. A disc spacer has been placed. Mild right and m oderate left foraminal narrowing is present Vertebral alignment appears normal. IMPRESSION: 1. Postsurgical changes L5-S1. 2. Disc bulging with mild to moderate anterior thecal sac compression at the L3-4 level in conjunctio n with facet hypertrophy is contributing to some spinal canal narrowing. 3. Moderate foraminal narrowing at L4-5. Moderate left foraminal narrowing is present L5-S1. Some mil d foraminal narrowing is present L3-4 bilaterally [facility], , 06/20/2024 9:05 AM
--- NOTE | 2024-06-20 09:34 | P.PN ---
Subjective Progress Note Date: 06/20/24 Principal diagnosis: 1.L4-5 and L5-S1 spondylosis with stenosis 2.Lower extremity radiculopathy 3.Right lower extremity radiculopathy 4. Low back pain Patient was seen at bedside this morning lying semirecumbent edition with dressing present over lumbar spine. Patient says she has been urinating since surgery yesterday without issue. Patient says she is looking forward to working with therapy later this morning. Patient says she is hoping to stay 1 more n ight for additional pain control and therapy. Patient says pain is controlled with oral medication. Patient denies any other issues at this time. Objective - Vital Signs Vital signs: Vital Signs Temp 98.5 F 06/20/24 07:54 Pulse 84 06/20/24 07:54 Resp 18 06/20/24 07:54 BP 94/52 06/20/24 07:54 Pulse Ox 91 L 06/20/24 07:54 FiO2 Intake & Output 06/19/24 06/20/24 06/20/24 18:59 06:59 18:59 Intake Total 1050 Output Total 50 Balance 1000 Weight 62.1 kg Intake: IV 1050 Output: Estimated Blood Loss 50 Other: Voiding Method Toilet # Voids 0 3 - Exam Dressing present over lumbar spine exam. Appears to be clean, dry, intact this time. There is some generalized tenderness of patient and incision. Nontender on rest of exam. There is some dermatomal deficit at L5-S1. Sensation is equal, symmetric, by intact throughout the rest of the dermatomes and extremities on exam. Patient does have some limited range of motion the bilateral hips secondary referred pain and stiffness. Good range of motion thro ughout rest of extremities on exam. 4/5 in all major motor groups in bilateral lower extremities. 5/5 in all major motor groups in bilateral upper extremities. Radial pulse intact, 2+ bilaterally. Cap refill under 3 seconds in digits of upper extremities. Negative Homans, Yousuf, clonus bilaterally. Assessment and Plan Assessment: 1.L4-5 and L5-S1 spondylosis with stenosis 2.Lower extremity radiculopathy 3.Right lower extremity radiculopathy 4. Low back pain -Postop day 1 status post L5-S1 MIS PLIF Plan: 1.L4-5 and L5-S1 spondylosis with stenosis;Lower extremity radiculopathy;Right lower extremity radiculopathy; Low back pain -surgery performed yesterday, 06/19/2024L5-S1 MIS PLIF. Patient stable at bedside this morning with dressing in place over lumbar spine. Appreciate PT/OT eval today. Weightbearing as tolerated with walker. Plan for dressing change tomorrow. pain medication as needed. Plan for discharge home tomorrow versus Saturday with home care. 2. Appreciate medical management 3. Pain management -Dalton; tramadol; gabapentin; Flexeril 4. DVT prophylaxis -with hold Plavix and aspirin until tomorrow morning 5. GI prophylaxis -Protonix; senna 6. PT/OT -weightbearing as tolerated with walker 7. Encourage incentive spirometer use 8. Discharge planning -plan for discharge home tomorrow versus Saturday with home care Time with Patient: Less than 30
[2024-06-20] MEDS: SYMBICORT 160-4.5 MCG INHALER INHALATION SCH (09:36)
[2024-06-20] MEDS: TIOTROPIUM 2.5 MCG INHALER INHALATION SCH (09:37)
[2024-06-20 10:08] LABS: Basophils # (A) 0.02 X 10*3/uL (0.00-0.10); Basophils % (A) 0.2 %; Eosinophils # (A) 0 X 10*3/uL (0.04-0.35); Eosinophils % (A) 0 %; HCT 37.8 % (37.2-46.3); HGB 12.1 g/dL (12.0-15.0); Lymphocytes # (A) 0.44 X 10*3/uL (0.90-5.00); Lymphocytes % (A) 3.6 %; MCH 31.1 pg (27.0-32.0); MCV 97.2 FL (80.0-97.0); Mean Platelet Volume 10.4 FL (9.5-12.2); Monocytes # (A) 1.05 X 10*3/uL (0.20-1.00); Monocytes % (A) 8.7 %; NRBC Per 100 WBC 0 X 10*3/uL (0.00-0.01); Neutrophils # (A) 10.48 X 10*3/uL (1.80-7.70); Neutrophils % (A) 86.9 %; Platelet Count 257 X 10*3/uL (140-440); RBC 3.89 X 10*6/uL (4.10-5.20); RDW 13.5 % (11.5-14.5); WBC 12.06 X 10*3/uL (4.50-10.00)
[2024-06-20 10:13] LABS: BUN/Creat Ratio 15.29 Ratio (12.00-20.00); Blood Urea Nitrogen 10.7 mg/dL (9.0-27.0); Carbon Dioxide 25.5 mmol/L (21.6-31.8); Chloride 102 mmol/L (96-109); Glucose 97 mg/dL (70-110); Potassium 4.6 mmol/L (3.5-5.5); Sodium 139 mmol/L (135-145)
--- NOTE | 2024-06-20 13:24 | XR ---
EXAMINATION TYPE: XR chest 1V DATE OF EXAM: 06/20/2024 12:16 PM COMPARISON: 07/26/2023 CLINICAL INDICATION: Female, 69 years old with history of CHF, TECHNIQUE: XR chest 1V view(s) obtained. FINDINGS: The heart size is enlarged. The pulmonary vasculature is prominent. Couple of rounded densities are in the lateral right lung may be small granuloma present previously There may be a small left pleural effusion. IMPRESSION: 1. Clinical correlation for CHF. [facility], , 06/20/2024 1:21 PM
--- NOTE | 2024-06-20 13:42 | P.HPIM ---
History of Present Illness H&P Date: 06/20/24 This is a pleasant 69-year-old female with medical history significant for coronary artery disease with prior cardiac stenting, COPD, acid reflux, hypertension, hyperlipidemia, hypothyroidism, breast cancer with partial left mastectomy and chemoradiation, chronic hypoxic respiratory failure uses 3 L of oxygen at bedtime and chronic nicotine use. Patient comes in for scheduled L5-S1 posterolateral and interbody fusion with decompression with Dr. Aguilera to functional decline with activities of daily living as well as sleep walking bending twisting. Patient has tried physical therapy without success as well as conservative pain medication. Patient is now evaluated postoperative day #1 internal medicine was consulted for chronic health conditions. Reporting back pain today about a 5 out of 10. Her white blood cell count is 12.06. Patient was reporting some shortness of breath found to have an oxygen saturation of 91% while on room air. A chest x-ray was completed which reveals possible congestive heart failure. Appears to be a small left pleural effusion. Otherwise she has been passing gas and urinating without difficulty. REVIEW OF SYSTEMS: CONSTITUTIONAL: No fever, no malaise, no fatigue. HEENT: No recent visual problems or hearing problems. Denied any sore throat. CARDIOVASCULAR: No chest pain, orthopnea, PND, no palpitations, no syncope. PULMONARY: No shortness of breath, no cough, no hemoptysis. GASTROINTESTINAL: No diarrhea, no nausea, no vomiting, no abdominal pain. NEUROLOGICAL: No headaches, no weakness, no numbness. HEMATOLOGICAL: Denies any bleeding or petechiae. GENITOURINARY: Denies any burning micturition, frequency, or urgency. MUSCULOSKELETAL/RHEUMATOLOGICAL: Denies any joint pain, swelling, or any muscle pain. ENDOCRINE: Denies any polyuria or polydipsia. The rest of the 14-point review of systems is negative. PHYSICAL EXAMINATION: GENERAL: The patient is alert and oriented x3, not in any acute distress. Well developed, well nourished. HEENT: Pupils are round and equally reacting to light. EOMI. No scleral icterus. No conjunctival pallor. Normocephalic, atraumatic. No pharyngeal erythema. No thyromegaly. CARDIOVASCULAR: S1 and S2 present. No murmurs, rubs, or gallops. PULMONARY: Chest is clear to auscultation, no wheezing or crackles. ABDOMEN: Soft, nontender, nondistended, normoactive bowel sounds. No palpable organomegaly. MUSCULOSKELETAL: No joint swelling or deformity. EXTREMITIES: No cyanosis, clubbing, or pedal edema. NEUROLOGICAL: Gross neurological examination did not reveal any focal deficits. SKIN: No rashes. Assessment and Plan severe spondylytic changes at L4-5 and L5-S1 with severe modic changes, disc collapse, herniation, and osteophyte/disc complex causing severe central and bilateral foraminal stenosis. Postoperative day #1 L5-S1 posterolateral and interbody fusion with decompressio n secondary to Mild acute diastolic dysfunction normal EF per echo back in 2020. Hx of coronary artery disease wtih 5 cardiac stents History of COPD and chronic hypoxix respiratory failure using 3L of nasal cannula at HS Hypertension currently low/normotensive and will recommend holding losartan and hctz combination at this time Hx hypothyroidism resumed on levothyroxine History of GERD History of breast cancer with partial left mastectomy and chemoradiation Leukocytosis, reactive and expected postoperatively patient has IS at the bedside and encouraged to use 10 x an hour GI prophylaxis DVT prophylaxis as per primary Full Code Resume appropriate home medications IV lasix x 1 20 mg dose and stop IV fluids Continue pain management with oral norco, ultram and IV dilaudid per surgery Continue bowel regimen Repeat BMP in the AM Thank you kindly for this consultation The impression and plan of care has been dictated by Winnie Barraza, Nurse Practitioner as directed. Dr. Lui MD I have performed a history and physical examination and medical decision making of this patient, discussed the same with the dictator, and agree with the dictators assessment and plan as written, documented as a scribe. Based on total visit time, I have performed more than 50% of this visit. Past Medical History Past Medical History: Coronary Artery Disease (CAD), Cancer, COPD, GERD/Reflux, Hyperlipidemia, Hypertension, Myocardial Infarction (HI), Thyroid Disorder Additional Past Medical History / Comment(s): hepatits as a child, latent TB at 31 years old, breast cancer 25 yrs. ago-had surg.,chemo & radiation, benign intr acranial hypertension. uses oxygen if gets cold/bronchitis-will use @HS 3l Last Myocardial Infarction Date:: 2006 History of Any Multi-Drug Resistant Organisms: None Reported Past Surgical History: Breast Surgery, Heart Catheterization With Stent Additional Past Surgical History / Comment(s): heart stents x5, partial left mastectomy, PORTER BAGGAGE shunt. jaw surg. for underbite-steel plate on left side, lula. cataracts removed Past Anesthesia/Blood Transfusion Reactions: Previous Problems w/ Anesthesia Additional Past Anesthesia/Blood Transfusion Reaction / Comment(s): pt is combative if not in deep anesthesia, takes alot to put pt. out Date of Last Stent Placement:: 2021 Past Psychological History: No Psychological Hx Reported Smoking Status: Current every day smoker Past Alcohol Use History: None Reported Additional Past Alcohol Use History / Comment(s): Smokes <1/2 ppd for about 50 yrs Past Drug Use History: None Reported - Past Family History Father Family Medical History: Cancer Additional Family Medical History / Comment(s): Multi myeloma Mother Family Medical History: Cancer Additional Family Medical History / Comment(s): Breast cancer Medications and Allergies Home Medications Medication Instructions Recorded Confirmed Type Clopidogrel [Plavix] 75 mg PO HS 12/07/19 06/19/24 History Losartan/Hydrochlorothiazide 1 tab PO DAILY PRN 12/07/19 06/19/24 History [Losartan-Hctz 50-12.5 mg Tab] Omeprazole [PriLOSEC] 20 mg PO BID 12/07/19 06/19/24 History Aspirin 81 mg PO DAILY 09/17/22 06/19/24 History Levothyroxine Sodium [Synthroid] 112 mcg PO DAILY 09/17/22 06/19/24 History Atorvastatin [Lipitor] 40 mg PO HS 07/26/23 06/19/24 History Metoprolol Succinate (ER) [Toprol 25 mg PO DAILY 07/26/23 06/19/24 History XL] Multivit-Min/FA/Lycopen/Lutein 1 tab PO DAILY 07/26/23 06/19/24 History [Centrum Silver Tablet] Psyllium Husk [Fiber Capsule] 0.4 gm PO DAILY 07/26/23 06/19/24 History Albuterol Inhaler [Ventolin Hfa 1 - 2 puff INHALATION Q6H PRN 06/15/24 06/19/24 History Inhaler] Fluticasone/Umeclidin/Vilanter 1 inhalation INHALATION DAILY 06/15/24 06/19/24 History [Trelegy Ellipta 100-62.5-25] traMADol HCL 50 mg PO Q12H 06/15/24 06/19/24 History Allergies Allergy/AdvReac Type Severity Reaction Status Date / Time amoxicillin Allergy Rash/Hives Verified 06/19/24 11:00 influenza virus vaccine, Allergy Rash/Hives Verified 06/19/24 11:00 specific Tetracyclines Allergy Rash/Hives Verified 06/19/24 11:00 codeine AdvReac SYNCOPE Verified 06/19/24 11:00 Physical Exam Vitals: Vital Signs Temp Pulse Pulse Pulse Resp BP Pulse Ox 06/20/24 07:54 98.5 F 84 18 94/52 91 L 06/20/24 02:00 63 17 109/48 98 06/19/24 20:15 69 16 06/19/24 20:00 99.7 F H 69 16 130/70 95 06/19/24 18:00 73 124/72 93 L 06/19/24 17:45 69 126/69 92 L 06/19/24 17:30 68 128/70 90 L 06/19/24 17:15 73 134/85 90 L 06/19/24 17:02 78 18 154/75 93 L 06/19/24 17:00 71 125/74 92 L 06/19/24 16:20 74 14 141/79 99 06/19/24 16:05 75 14 151/83 99 06/19/24 15:50 71 16 134/62 100 06/19/24 15:35 97.2 F L 73 12 140/60 100 Intake and Output 06/19/24 06/20/24 06/20/24 22:59 06:59 14:59 Intake Total 0 Balance 0 Intake: IV 0 Other: Voiding Method Toilet # Voids 0 3 2 Weight 62.1 kg Results CBC & Chem 7: 06/20/24 03:30 06/20/24 03:30 Labs: Abnormal Lab Results - Last 24 Hours (Table) 06/20/24 Range/Units 03:30 WBC 12.06 H (4.50-10.00) X 10*3/uL RBC 3.89 L (4.10-5.20) X 10*6/uL MCV 97.2 H (80.0-97.0) FL Immature Gran # 0.07 H (0.00-0.04) X 10*3/uL Neutrophils # 10.48 H (1.80-7.70) X 10*3/uL Lymphocytes # 0.44 L (0.90-5.00) X 10*3/uL Monocytes # 1.05 H (0.20-1.00) X 10*3/uL Eosinophils # 0 L (0.04-0.35) X 10*3/uL Thrombosis Risk Factor Assmnt - Choose All That Apply Each Factor Represents 1 point: Abnormal pulmonary function (COPD), Acute HI, Obesity (BMI >25) Each Risk Factor Represents 2 Points: Age 61-74 years Other congenital or acquired thrombophilia - If yes, enter type in comment: No Thrombosis Risk Factor Assessment Total Risk Factor Score: 5 Thrombosis Risk Factor Assessment Level: High Risk Assessment and Plan Time with Patient: Less than 30
[2024-06-20] MEDS: FUROSEMIDE 10 MG/ML 2 ML VIAL IV ONE (13:59)
[2024-06-20] MEDS: HYDROcodone/APAP 5-325MG 1 EACH TAB PO PRN (14:03)
[2024-06-20 20:16] VITALS: RESP 16
[2024-06-20] MEDS: ATORVASTATIN 40 MG TAB PO SCH (21:04)
[2024-06-20] MEDS: CLOPIDOGREL 75 MG TAB PO SCH (21:04)
[2024-06-20] MEDS: CYCLOBENZAPRINE 5 MG TAB PO PRN (21:09)
[2024-06-21] MEDS: HYDROcodone/APAP 10-325MG 1 EACH TAB PO PRN (06:53)
[2024-06-21 08:18] VITALS: BP 125/70; PULSE 70; TEMP 98.6
[2024-06-21 10:04] LABS: Blood Urea Nitrogen 13.8 mg/dL (9.0-27.0); Calcium 8.5 mg/dL (8.7-10.3); Carbon Dioxide 29.1 mmol/L (21.6-31.8); Chloride 103 mmol/L (96-109); Glucose 90 mg/dL (70-110); Potassium 4.2 mmol/L (3.5-5.5); Sodium 140 mmol/L (135-145)
--- NOTE | 2024-06-21 13:10 | P.DS ---
Providers Date of admission: 06/19/2024 Expected date of discharge: 06/21/24 Attending physician: Yakov Aguilera DO Consults: 06/19/24 15:38 Consult Physician Routine Consulting Provider: Jovon Mejía Reason/Comments: medical management s/p L5-S1 MIS PLIF Do you want consulting provider notified?: Yes Primary care physician: Jovon Mejía Hospital Course: Date of admission: 06/19/2024 Date of discharge: 06/21/2024 Admission diagnosis: 1.L4-5 and L5-S1 spondylosis with stenosis 2.Lower extremity radiculopathy 3.Right lower extremity radiculopathy 4. Low back pain Discharge diagnosis: Same Attending physician: Dr. Aguilera Surgical procedures: L5-S1 MIS PLIF Brief history: Patient is a 69-year-old female with a history of L4-5 and L5-S1 spondylosis with stenosis; lower extremity radiculopathy; right lower extremity radiculopathy; low back pain. At this point patient has failed conservative treatment measures and has opted to proceed with a elective L5-S1 MIS posterolateral interbody fusion. Hospital course: Details of patient's surgery can be found in operative report. Patient tolerated the procedure well and was subsequently transported to orthopedic floor. Patient's orthopeidc and medical care was provided daily. Patient had daily laboratory tests performed for evaluation of overall blood counts. Patient had daily physical therapy to include strengthening range of motion as well as education with walker ambulation. Patient was noted to have a relatively uneventful postoperative course. Patient reported satisfactory pain control with oral pain medications by postoperative day 2. Patient showed satisfactory progress with physical therapy. Patient moved steadily through the program and had no difficulty meeting the goals by postoperative day 2. Given patient's otherwise satisfactory course and having met physical therapy goals, plan is to discharge patient home with home care on postoperative day 2. Discharge condition/disposition: Patient will be discharged home with home care in stable condition. Discharge medications: Instructions are given on resumption of patient's normal daily medications per primary care recommendation, in addition patient will be prescribed Boaz; Flexeril; Gabapentin; senna; duricef. Spine Discharge and Recovery Instructions Date of Surgery: 06/19/2024 Diagnosis: 1.L4-5 and L5-S1 spondylosis with stenosis 2.Lower extremity radiculopathy 3.Right lower extremity radiculopathy 4. Low back pain Procedure: L5-S1 MIS PLIF Medications: See medication list All medication refills should be obtained through your primary care doctor or your clinic spine surgeon. Please discuss prescription refills at your follow up appointment. Do not call the hospital for medication refills. Dressing: Leave your dressing in place for a total of 5 days post operatively. Then you may remove your dressing and leave open to air. Keep the area clean and if not able to keep area clean, then cover with sterile gauze and tape. Showering: You may shower 3 days after your procedure allowing soap and water to run over incision. Do not scrub. Do not soak. Blot dry. Follow up: Please confirm a follow up appointment with your surgeon 3 weeks post operatively. Please make an appointment to follow up with your PCP in 1-2 weeks after surgery for evaluation '3 phase, 3-week plan' POST OP WEEKS 1-3 1. Lifting/carrying/pushing/pulling limited to less than 5 pounds. 2. Do not sit for longer than 15 minutes at one time. Get up and walk around. Prolonged sitting is NOT advised. If you lay down, see if you can tolerate laying down on you front (belly side) 3. Walk for periods of 15 minutes = 1 mile but no longer; do it multiple times times each day. 4. Ice your low back after activity. POST OP WEEKS 3-6 1. Lifting limited to less than 20 pounds. 2. Do not sit for longer than 30 minutes at a time. Frequently change positions. Use a sit-to stand workstation or take frequent breaks from sitting if you have returned to work. 3. Walk for 30 minutes each day. If possible, do these three or more times a day POST OP WEEKS 6+ At your 6-week appointment we will give you a physical therapy referral to focus on a core stabilization and strengthening program. You should also work on leg & buttock strengthening, hamstring & quadriceps stretching, and continue a low impact aerobic activity program such as swimming, walking, or riding a stationary bicycle. During the initial 6 weeks after your surgery, you are at the highest risk of re-injuring your spine. You should generally avoid BLT's (bending, lifting and twisting combination motions) and follow the above guidelines to reduce the chance of reinjury. You can anticipate post op appointments in our office at approximately 3 weeks and 6 weeks after your surgery. INCISION CARE: If your incision is not draining you do NOT need to cover it with a dressing. Keep your incision clean, dry and intact. In most cases, we apply skin glue, connor or sutures to the incision at the time of surgery. This will be like a crust or have the appearance of a scab and will fall off in time on its own. The stitches or connor need to be removed at 3 weeks post op appointment. You may begin to shower 3 days after surgery (this allows the glue to tellez well). However, please avoid scrubbing the incision site or peeling off any of the skin glue. This will ensure optimal healing of your incision. Also, during this time avoid soaking the incision area in water - this includes swimming pools, hot tubs or baths. No ointments, lotions or oils on the incision until your surgeon allows. Leave connor, sutures or glue in place. Neurological dysfunction that comes on suddenly can also be a sign of a stroke. Below some common symptoms of a stroke are listed: B - balance difficulty such as sudden onset walking or leaning to one side - NEW E - eye problem such as sudden double vision or trouble seeing on one side - NEW F - Facial weakness or numbness on one side - NEW A - Arm or leg weakness or numbness on one side - NEW S - Slurred speech or difficulty with word finding - NEW T - Time is BRAIN! Call 911 as soon as you recognize these symptoms Diet: Consume a regular diet rich in vegetables and lean protein such as chicken or fish. You should consume in a ratio of approximately 20% fats|40% carbohydrates|40%protein. Vegetables, sweet potatoes, brown rice or quinoa are examples of good carbohydrates. Chips, white bread, cookies and sweets/sugar are examples of bad carbohydrates. Limit your bad carbs, go wild with good carbs. "Life's Simple 7" Guidelines as per [place] [employer] These will help you reclaim your life after surgery and anglesmith helper in your recovery, keeping in mind your restrictions. (1) Get Active. Physical activity can help people lose weight, control high blood pressure and cholesterol, feel emotionally better, and sleep better. (2) Control Cholesterol. Avoid a diet high in saturated fat, trans fat, & cholesterol. Limit whole milk & cream, ice cream, butter, egg yolks, processed meats (like sausage and hot dogs), and fatty meats. Choose healthy foods that are low in saturated fat, trans fat and cholesterol which include: Fruits and vegetables, fiber rich grain products (like whole grain pasta and brown rice), lean meat such as chicken, fish, nuts, seeds, and legumes. (3) Eat Better. Eat small portions. Shop at the grocery with a list and do not stray from it. Tips for a healthy diet include: Limit sodium intake to less than 1500mg daily, avoid prepackaged, processed, and fast foods, choose a diet rich in fruits, vegetables, and whole grain, high fiber foods, and limit saturated & cholesterol in your diet. (4) Manage Blood Pressure. If you have high blood pressure, you should have a cuff at home so that you can check your blood pressure regularly. Be sure you have a good cuff. An arm one is generally better than a wrist one. Bring the cuff to a doctor's appointment to validate that the measurements that your cuff are taking are accurate. Take your blood pressure twice daily when you are sitting down and relaxing. Record the numbers in a log and bring this log with you to your doctors' appointments. (5) Lose Weight if your BMI is above 25. A healthy BMI is between 19-25. To calculate Your BMI, you may use a Standard BMI Calculator on the NIH BMI website: <www.nhlbi.nih.gov/guidelines/obesity/BMI/bmicalc.htm>. Weigh oneself daily. If you are overweight, set a goal to lose weight. A pound a week loss if needed is a good target. (6) Reduce Blood Sugar. Limit foods and liquids with "added sugars." (Added sugars include sucrose, fructose, glucose, maltose, dextrose, high fructose corn syrup, corn syrup, concentrated fruit juice and honey). (7) Stop Smoking. If you smoke, quitting smoking is one of the best things that you can do for your health. Smoking increases your risk of heart attack, stroke, and peripheral vascular disease, which is a build-up of plaque in your arteries. Please discard all the cigarettes and lighters in your house. Have a plan for what you will do when you have the urge to smoke. Direct and second- hand smoke shortens your life as well as the lives of your family, friends and others around you. For your health and the health of those around you, please consider quitting! Proper Bending Body Mechanics: Maintain a wide stance with one foot slightly in front of the other. Keep your back straight. Bend utilizing the strength in your hips and knees. Do not bend at the waist. Maintain the lifted object at your waist-level close to your body. Avoid lifting weight that causes immediately pain or pain anywhere in the body afterwards. Smoking/Nicotine If there was ever one thing that you could do to increase your overall health, decrease your risk of cardiovascular problems by about 39% the second you make the choice, it is to STOP SMOKING. Your body's most instant gratification is the second you stop smoking. We have all heard the studies, read the articles but it is true, smoking is extremely bad for your overall health, and moreover it is detrimental to your bone health. Nicotine, IN ANY FORM, kills bone cells, prevents your body from healing fractures, and significantly prolongs healing after surgery. In spine surgery specifically, it increases your risk of not healing your bones to create a fusion and increases your risk of having a revision surgery due to this up to 60%. I know it is hard. I know it feels impossible. But there are ways. Take control of your life. We are here to help you through it. And when you are ready, ask us and we can direct you to help if you desire. Use the START Plan to Quit Smoking (please visit the Helpguide.org website listed below for more information): S = Set a quit date. Choose a date within the next 2 weeks, so you have enough time to prepare without losing your motivation to quit. If you mainly smoke at work, quit on the weekend, so you have a few days to adjust to the change. T = Tell family, friends, and co-workers that you plan to quit. Let your friends and family in on your plan to quit smoking and tell them you need their support and encouragement to stop. Look for a quit brea who wants to stop smoking as well. You can help each other get through the rough times. A = Anticipate and plan for the challenges you'll face while quitting. Most people who begin smoking again do so within the first 3 months. You can help yourself make it through by preparing ahead for common challenges, such as nicotine withdrawal and cigarette cravings. R = Remove cigarettes and other tobacco products from your home, car, and work. Throw away all your cigarettes (no emergency pack!), lighters, ashtrays, and matches. Wash your clothes and freshen up anything that smells like smoke. Shampoo your car, clean your drapes and carpet, and steam your furniture. T = Talk to your doctor about getting help to quit. Your doctor can prescribe medication to help with withdrawal and suggest other alternatives. If you can't see a doctor, you can get many products over the counter at your local pharmacy or grocery store, including the nicotine patch, nicotine lozenges, and nicotine gum. Resources for Quitting Smoking: <https://www.[place].gov/documents/[facility]/Quit_Tobacco_Resources_for_patien ts_313480_7.pdf> Supplementation: Take recommended dosages of Vitamin D and Calcium to help fortify your bones and help them to heal. See your health maintenance packet for dosages and cheli mmended levels. DVT/VTE prophylaxis: You will be given compression stockings from the hospital. Wear these daily for the first two weeks after surgery. You may take them off at night. You may be prescribed a medication to help thin your blood. Take this as directed. If you are not prescribed this medication, early and frequent ambulation has been shown to be the best prophylaxis to deep vein thrombosis and sequelae related to this event. Assessment: 1.L4-5 and L5-S1 spondylosis with stenosis 2.Lower extremity radiculopathy 3.Right lower extremity radiculopathy 4. Low back pain Procedures: L5-S1 MIS PLIF Patient Condition at Discharge: Good Plan - Discharge Summary Discharge Rx Participant: No New Discharge Prescriptions: New cefaDROXiL [Duricef] 500 mg PO Q12HR 5 Days #10 cap HYDROcodone/APAP 7.5-325MG [Boaz 7.5-325] 1 tab PO Q6HR PRN #28 tab PRN Reason: Pain Sennosides/Docusate Sodium [Senna Plus 8.6-50 mg Softgel] 1 each PO DAILY #20 capsule Cyclobenzaprine [Flexeril] 5 mg PO TID #21 tablet Gabapentin [Neurontin] 300 mg PO TID #30 cap Continue Omeprazole [PriLOSEC] 20 mg PO BID Clopidogrel [Plavix] 75 mg PO HS Levothyroxine Sodium [Synthroid] 112 mcg PO DAILY Aspirin 81 mg PO DAILY Psyllium Husk [Fiber Capsule] 0.4 gm PO DAILY traMADol HCL 50 mg PO Q12H Albuterol Inhaler [Ventolin Hfa Inhaler] 1 - 2 puff INHALATION Q6H PRN PRN Reason: Shortness Of Breath Multivit-Min/FA/Lycopen/Lutein [Centrum Silver Tablet] 1 tab PO DAILY Metoprolol Succinate (ER) [Toprol XL] 25 mg PO DAILY Atorvastatin [Lipitor] 40 mg PO HS Fluticasone/Umeclidin/Vilanter [Trelegy Ellipta 100-62.5-25] 1 inhalation INHALATION DAILY No Action Losartan/Hydrochlorothiazide [Losartan-Hctz 50-12.5 mg Tab] 1 tab PO DAILY PRN PRN Reason: HIGH BLOOD PRESSURE & SWELLING Discharge Medication List Clopidogrel [Plavix] 75 mg PO HS 12/07/19 [History] Losartan/Hydrochlorothiazide [Losartan-Hctz 50-12.5 mg Tab] 1 tab PO DAILY PRN 12/07/19 [History] Omeprazole [PriLOSEC] 20 mg PO BID 12/07/19 [History] Aspirin 81 mg PO DAILY 09/17/22 [History] Levothyroxine Sodium [Synthroid] 112 mcg PO DAILY 09/17/22 [History] Atorvastatin [Lipitor] 40 mg PO HS 07/26/23 [History] Metoprolol Succinate (ER) [Toprol XL] 25 mg PO DAILY 07/26/23 [History] Multivit-Min/FA/Lycopen/Lutein [Centrum Silver Tablet] 1 tab PO DAILY 07/26/23 [History] Psyllium Husk [Fiber Capsule] 0.4 gm PO DAILY 07/26/23 [History] Albuterol Inhaler [Ventolin Hfa Inhaler] 1 - 2 puff INHALATION Q6H PRN 06/15/24 [History] Fluticasone/Umeclidin/Vilanter [Trelegy Ellipta 100-62.5-25] 1 inhalation INHALATION DAILY 06/15/24 [History] traMADol HCL 50 mg PO Q12H 06/15/24 [History] Cyclobenzaprine [Flexeril] 5 mg PO TID #21 tablet 06/21/24 [Rx] Gabapentin [Neurontin] 300 mg PO TID #30 cap 06/21/24 [Rx] HYDROcodone/APAP 7.5-325MG [Boaz 7.5-325] 1 tab PO Q6HR PRN #28 tab 06/21/24 [Rx] Sennosides/Docusate Sodium [Senna Plus 8.6-50 mg Softgel] 1 each PO DAILY #20 capsule 06/21/24 [Rx] cefaDROXiL [Duricef] 500 mg PO Q12HR 5 Days #10 cap 06/21/24 [Rx] Follow up Appointment(s)/Referral(s): Yakov Aguilera DO [Doctor of Osteopathic Medicine] - 2 Weeks Activity/Diet/Wound Care/Special Instructions: Spine Discharge and Recovery Instructions Date of Surgery: 06/19/2024 Diagnosis: 1.L4-5 and L5-S1 spondylosis with stenosis 2.Lower extremity radiculopathy 3.Right lower extremity radiculopathy 4. Low back pain Procedure: L5-S1 MIS PLIF Medications: See medication list All medication refills should be obtained through your primary care doctor or your clinic spine surgeon. Please discuss prescription refills at your follow up appointment. Do not call the hospital for medication refills. Dressing: Leave your dressing in place for a total of 5 days post operatively. Then you may remove your dressing and leave open to air. Keep the area clean and if not able to keep area clean, then cover with sterile gauze and tape. Showering: You may shower 3 days after your procedure allowing soap and water to run over incision. Do not scrub. Do not soak. Blot dry. Follow up: Please confirm a follow up appointment with your surgeon 3 weeks post operatively. Please make an appointment to follow up with your PCP in 1-2 weeks after surgery for evaluation '3 phase, 3-week plan' POST OP WEEKS 1-3 1. Lifting/carrying/pushing/pulling limited to less than 5 pounds. 2. Do not sit for longer than 15 minutes at one time. Get up and walk around. Prolonged sitting is NOT advised. If you lay down, see if you can tolerate laying down on you front (belly side) 3. Walk for periods of 15 minutes = 1 mile but no longer; do it multiple times times each day. 4. Ice your low back after activity. POST OP WEEKS 3-6 1. Lifting limited to less than 20 pounds. 2. Do not sit for longer than 30 minutes at a time. Frequently change positions. Use a sit-to stand workstation or take frequent breaks from sitting if you have returned to work. 3. Walk for 30 minutes each day. If possible, do these three or more times a day POST OP WEEKS 6+ At your 6-week appointment we will give you a physical therapy referral to focus on a core stabilization and strengthening program. You should also work on leg & buttock strengthening, hamstring & quadriceps stretching, and continue a low impact aerobic activity program such as swimming, walking, or riding a stationary bicycle. During the initial 6 weeks after your surgery, you are at the highest risk of re-injuring your spine. You should generally avoid BLT's (bending, lifting and twisting combination motions) and follow the above guidelines to reduce the chance of reinjury. You can anticipate post op appointments in our office at approximately 3 weeks and 6 weeks after your surgery. INCISION CARE: If your incision is not draining you do NOT need to cover it with a dressing. Keep your incision clean, dry and intact. In most cases, we apply skin glue, connor or sutures to the incision at the time of surgery. This will be like a crust or have the appearance of a scab and will fall off in time on its own. The stitches or connor need to be removed at 3 weeks post op appointment. You may begin to shower 3 days after surgery (this allows the glue to tellez well). However, please avoid scrubbing the incision site or peeling off any of the skin glue. This will ensure optimal healing of your incision. Also, during this time avoid soaking the incision area in water - this includes swimming pools, hot tubs or baths. No ointments, lotions or oils on the incision until your surgeon allows. Leave connor, sutures or glue in place. Neurological dysfunction that comes on suddenly can also be a sign of a stroke. Below some common symptoms of a stroke are listed: B - balance difficulty such as sudden onset walking or leaning to one side - NEW E - eye problem such as sudden double vision or trouble seeing on one side - NEW F - Facial weakness or numbness on one side - NEW A - Arm or leg weakness or numbness on one side - NEW S - Slurred speech or difficulty with word finding - NEW T - Time is BRAIN! Call 911 as soon as you recognize these symptoms Diet: Consume a regular diet rich in vegetables and lean protein such as chicken or fish. You should consume in a ratio of approximately 20% fats|40% carbohydrates|40%protein. Vegetables, sweet potatoes, brown rice or quinoa are examples of good carbohydrates. Chips, white bread, cookies and sweets/sugar are examples of bad carbohydrates. Limit your bad carbs, go wild with good carbs. "Life's Simple 7" Guidelines as per [place] [employer] These will help you reclaim your life after surgery and anglesmith helper in your recovery, keeping in mind your restrictions. (1) Get Active. Physical activity can help people lose weight, control high blood pressure and cholesterol, feel emotionally better, and sleep better. (2) Control Cholesterol. Avoid a diet high in saturated fat, trans fat, & cholesterol. Limit whole milk & cream, ice cream, butter, egg yolks, processed meats (like sausage and hot dogs), and fatty meats. Choose healthy foods that are low in saturated fat, trans fat and cholesterol which include: Fruits and vegetables, fiber rich grain products (like whole grain pasta and brown rice), lean meat such as chicken, fish, nuts, seeds, and legumes. (3) Eat Better. Eat small portions. Shop at the grocery with a list and do not stray from it. Tips for a healthy diet include: Limit sodium intake to less than 1500mg daily, avoid prepackaged, processed, and fast foods, choose a diet rich in fruits, vegetables, and whole grain, high fiber foods, and limit saturated & cholesterol in your diet. (4) Manage Blood Pressure. If you have high blood pressure, you should have a cuff at home so that you can check your blood pressure regularly. Be sure you have a good cuff. An arm one is generally better than a wrist one. Bring the cuff to a doctor's appointment to validate that the measurements that your cuff are taking are accurate. Take your blood pressure twice daily when you are sitting down and relaxing. Record the numbers in a log and bring this log with you to your doctors' appointments. (5) Lose Weight if your BMI is above 25. A healthy BMI is between 19-25. To calculate Your BMI, you may use a Standard BMI Calculator on the NIH BMI website: <www.nhlbi.nih.gov/guidelines/obesity/BMI/bmicalc.htm>. Weigh oneself daily. If you are overweight, set a goal to lose weight. A pound a week loss if needed is a good target. (6) Reduce Blood Sugar. Limit foods and liquids with "added sugars." (Added sugars include sucrose, fructose, glucose, maltose, dextrose, high fructose corn syrup, corn syrup, concentrated fruit juice and honey). (7) Stop Smoking. If you smoke, quitting smoking is one of the best things that you can do for your health. Smoking increases your risk of heart attack, stroke, and peripheral vascular disease, which is a build-up of plaque in your arteries. Please discard all the cigarettes and lighters in your house. Have a plan for what you will do when you have the urge to smoke. Direct and second- hand smoke shortens your life as well as the lives of your family, friends and others around you. For your health and the health of those around you, please consider quitting! Proper Bending Body Mechanics: Maintain a wide stance with one foot slightly in front of the other. Keep your back straight. Bend utilizing the strength in your hips and knees. Do not bend at the waist. Maintain the lifted object at your waist-level close to your body. Avoid lifting weight that causes immediately pain or pain anywhere in the body afterwards. Smoking/Nicotine If there was ever one thing that you could do to increase your overall health, decrease your risk of cardiovascular problems by about 39% the second you make the choice, it is to STOP SMOKING. Your body's most instant gratification is the second you stop smoking. We have all heard the studies, read the articles but it is true, smoking is extremely bad for your overall health, and moreover it is detrimental to your bone health. Nicotine, IN ANY FORM, kills bone cells, prevents your body from healing fractures, and significantly prolongs healing after surgery. In spine surgery specifically, it increases your risk of not healing your bones to create a fusion and increases your risk of having a revision surgery due to this up to 60%. I know it is hard. I know it feels impossible. But there are ways. Take control of your life. We are here to help you through it. And when you are ready, ask us and we can direct you to help if you desire. Use the START Plan to Quit Smoking (please visit the Helpguide.org website listed below for more information): S = Set a quit date. Choose a date within the next 2 weeks, so you have enough time to prepare without losing your motivation to quit. If you mainly smoke at work, quit on the weekend, so you have a few days to adjust to the change. T = Tell family, friends, and co-workers that you plan to quit. Let your friends and family in on your plan to quit smoking and tell them you need their support and encouragement to stop. Look for a quit brea who wants to stop smoking as well. You can help each other get through the rough times. A = Anticipate and plan for the challenges you'll face while quitting. Most people who begin smoking again do so within the first 3 months. You can help yourself make it through by preparing ahead for common challenges, such as nicotine withdrawal and cigarette cravings. R = Remove cigarettes and other tobacco products from your home, car, and work. Throw away all your cigarettes (no emergency pack!), lighters, ashtrays, and matches. Wash your clothes and freshen up anything that smells like smoke. Shampoo your car, clean your drapes and carpet, and steam your furniture. T = Talk to your doctor about getting help to quit. Your doctor can prescribe medication to help with withdrawal and suggest other alternatives. If you can't see a doctor, you can get many products over the counter at your local pharmacy or grocery store, including the nicotine patch, nicotine lozenges, and nicotine gum. Resources for Quitting Smoking: <https://www.[place].gov/documents/mdc/Quit_Tobacco_Resources_for_patients_313 480_7.pdf> Supplementation: Take recommended dosages of Vitamin D and Calcium to help fortify your bones and help them to heal. See your health maintenance packet for dosages and recommended levels. DVT/VTE prophylaxis: You will be given compression stockings from the hospital. Wear these daily for the first two weeks after surgery. You may take them off at night. You may be prescribed a medication to help thin your blood. Take this as directed. If you are not prescribed this medication, early and frequent ambulation has been shown to be the best prophylaxis to deep vein thrombosis and sequelae related to this event. Discharge Disposition: HOME SELF-CARE
--- NOTE | 2024-06-21 13:15 | P.PN ---
Subjective Progress Note Date: 06/21/24 Principal diagnosis: 1.L4-5 and L5-S1 spondylosis with stenosis 2.Lower extremity radiculopathy 3.Right lower extremity radiculopathy 4. Low back pain Patient was seen at bedside this morning lying semirecumbent position with dressing present over lumbar spine. Patient says she has been urinating since surgery without issue. Patient says she is looking forward to working with therapy later this morning. Patient says pain is controlled with oral medication. Patient denies any other issues at this time. Objective - Vital Signs Vital signs: Vital Signs Temp 98.6 F 06/21/24 07:11 Pulse 70 06/21/24 07:11 Resp 16 06/21/24 07:11 BP 125/70 06/21/24 07:11 Pulse Ox 93 L 06/21/24 08:31 FiO2 Intake & Output 06/20/24 06/21/24 06/21/24 18:59 06:59 18:59 Other: Voiding Method Toilet # Voids 3 1 1 - Exam Dressing changed at bedside. incision CDI. There is some generalized tenderness of patient and incision. Nontender on rest of exam. There is some dermatomal deficit at L5-S1. Sensation is equal, symmetric, by intact throughout the rest of the dermatomes and extremities on exam. Patient does have some limited range of motion the bilateral hips secondary referred pain and stiffness. Good range of motion throughout rest of extremities on exam. 4/5 in all major motor groups in bilateral lower extremities. 5/5 in all major motor groups in bilateral upper extremities. Radial pulse intact, 2+ bilaterally. Cap refill under 3 seconds in digits of upper extremities. Negative Homans, Yousuf, clonus bilaterally. - Labs CBC & Chem 7: 06/20/24 03:30 06/21/24 03:49 Labs: Abnormal Lab Results - Last 24 Hours (Table) 06/21/24 Range/Units 03:49 Creatinine 0.5 L (0.6-1.5) mg/dL BUN/Creatinine Ratio 27.60 H (12.00-20.00) Ratio Calcium 8.5 L (8.7-10.3) mg/dL Assessment and Plan Assessment: 1.L4-5 and L5-S1 spondylosis with stenosis 2.Lower extremity radiculopathy 3.Right lower extremity radiculopathy 4. Low back pain -Postop day 2 status post L5-S1 MIS PLIF Plan: 1.L4-5 and L5-S1 spondylosis with stenosis;Lower extremity radiculopathy;Right lower extremity radiculopathy; Low back pain -surgery performed 06/19/2024L5-S1 MIS PLIF. Patient stable at bedside this morning with dressing in place over lumbar spine. Weightbearing as tolerated with walker. Plan for dressing change tomorrow. pain medication as needed. Plan for discharge home today 2. Appreciate medical management 3. Pain management -[place]; tramadol; gabapentin; Flexeril 4. DVT prophylaxis -okay to resume aspirin and Plavix once home 5. GI prophylaxis -Protonix; senna 6. PT/OT -weightbearing as tolerated with walker 7. Encourage incentive spirometer use 8. Discharge planning -plan for discharge home today Time with Patient: Less than 30
== END 2024-06-21 14:43 | disposition home or self-care (01) ==
LOC: OR 10:31 → 4SSUR 15:53 → OR 06-21 14:43
PROVIDERS: ATTEND Orthopaedic Surgery
DX: M48.07 Spinal stenosis, lumbosacral region (principal); M47.27 Other spondylosis with radiculopathy, lumbosacral region; M51.17 Intervertebral disc disorders with radiculopathy, lumbosacral region; M25.78 Osteophyte, vertebrae; E03.9 Hypothyroidism, unspecified; E66.9 Obesity, unspecified; E78.5 Hyperlipidemia, unspecified; I11.0 Hypertensive heart disease with heart failure; I50.9 Heart failure, unspecified; I25.2 Old myocardial infarction; I25.10 Atherosclerotic heart disease of native coronary artery without angina pectoris; J44.9 Chronic obstructive pulmonary disease, unspecified; J96.11 Chronic respiratory failure with hypoxia; K21.9 Gastro-esophageal reflux disease without esophagitis; F17.210 Nicotine dependence, cigarettes, uncomplicated; Z68.25 Body mass index [BMI] 25.0-25.9, adult; Z79.02 Long term (current) use of antithrombotics/antiplatelets; Z79.82 Long term (current) use of aspirin; Z79.890 Hormone replacement therapy; Z79.899 Other long term (current) drug therapy; Z85.3 Personal history of malignant neoplasm of breast; Z88.0 Allergy status to penicillin; Z88.5 Allergy status to narcotic agent; Z88.7 Allergy status to serum and vaccine; Z90.12 Acquired absence of left breast and nipple; Z95.5 Presence of coronary angioplasty implant and graft; Z98.2 Presence of cerebrospinal fluid drainage device
CPT/HCPCS: 94640; 97530; 97162; 80048; 85025; 72100; 71045; 72131; 22633; 22853; 20936; 20930; J1100; J1940; J0690 ×2; J2405; J3490; J1171; J0665; 94760

== ENCOUNTER 2024-07-12 05:41 | Emergency (ER) | payer MEDICARE ==
[2024-07-12] MEDS: HYDROmorphone 1 MG/ML 1 ML SYRINGE IM STA (06:22)
--- NOTE | 2024-07-12 06:43 | ED ---
Back Pain HPI - General Chief Complaint: Back Pain/Injury Stated Complaint: R leg pain Time Seen by Provider: 07/12/24 06:02 Source: patient, RN notes reviewed Limitations: no limitations - History of Present Illness Initial Comments: 69-year-old female presents emergency department with chief complaint of right leg pain. Patient states that she had back surgery [address] Aguilera states that she was doing well she states her back pain is actually improved but she states after she had her connor removed she started developing right leg pain and numbness. They recently placed her on a low-dose steroid which initially seemed to help but states that this morning she had increasing pain. She denies any bowel, bladder incontinence retention no saddle anesthes ias. Patient states she is on gabapentin Brant Flexeril with no relief. Denies discoloration no swelling of the leg. - Related Data Home Medications Medication Instructions Recorded Confirmed Clopidogrel [Plavix] 75 mg PO HS 12/07/19 06/19/24 Losartan/Hydrochlorothiazide 1 tab PO DAILY PRN 12/07/19 06/19/24 [Losartan-Hctz 50-12.5 mg Tab] Omeprazole [PriLOSEC] 20 mg PO BID 12/07/19 06/19/24 Aspirin 81 mg PO DAILY 09/17/22 06/19/24 Levothyroxine Sodium [Synthroid] 112 mcg PO DAILY 09/17/22 06/19/24 Atorvastatin [Lipitor] 40 mg PO HS 07/26/23 06/19/24 Metoprolol Succinate (ER) [Toprol 25 mg PO DAILY 07/26/23 06/19/24 XL] Multivit-Min/FA/Lycopen/Lutein 1 tab PO DAILY 07/26/23 06/19/24 [Centrum Silver Tablet] Psyllium Husk [Fiber Capsule] 0.4 gm PO DAILY 07/26/23 06/19/24 Albuterol Inhaler [Ventolin Hfa 1 - 2 puff INHALATION Q6H PRN 06/15/24 06/19/24 Inhaler] Fluticasone/Umeclidin/Vilanter 1 inhalation INHALATION DAILY 06/15/24 06/19/24 [Trelegy Ellipta 100-62.5-25] traMADol HCL 50 mg PO Q12H 06/15/24 06/19/24 Previous Rx's Medication Instructions Recorded Cyclobenzaprine [Flexeril] 5 mg PO TID #21 tablet 06/21/24 Gabapentin [Neurontin] 300 mg PO TID #30 cap 06/21/24 HYDROcodone/APAP 7.5-325MG [Brant 1 tab PO Q6HR PRN #28 tab 06/21/24 7.5-325] Sennosides/Docusate Sodium [Senna 1 each PO DAILY #20 capsule 06/21/24 Plus 8.6-50 mg Softgel] cefaDROXiL [Duricef] 500 mg PO Q12HR 5 Days #10 cap 06/21/24 predniSONE 50 mg PO DAILY #4 tab 07/12/24 Allergies Allergy/AdvReac Type Severity Reaction Status Date / Time amoxicillin Allergy Rash/Hives Verified 07/12/24 05:45 influenza virus vaccine, Allergy Rash/Hives Verified 07/12/24 05:45 specific Tetracyclines Allergy Rash/Hives Verified 07/12/24 05:45 codeine AdvReac SYNCOPE Verified 07/12/24 05:45 Review of Systems ROS Statement: Those systems with pertinent positive or pertinent negative responses have been documented in the HPI. ROS Other: All systems not noted in ROS Statement are negative. Past Medical History Past Medical History: Coronary Artery Disease (CAD), Cancer, Hyperlipidemia, Hypertension, Myocardial Infarction ([place]) Additional Past Medical History / Comment(s): hepatits as a child, latent TB at 31 years old, breast cancer, benign intracranial hypertension. Last Myocardial Infarction Date:: 2006 History of Any Multi-Drug Resistant Organisms: None Reported Past Surgical History: No Surgical Hx Reported, Orthopedic Surgery Additional Past Surgical History / Comment(s): heart stents x5, partial left mastectomy, CADDY shunt. Past Anesthesia/Blood Transfusion Reactions: No Reported Reaction Additional Past Anesthesia/Blood Transfusion Reaction / Comment(s): pt is combative if not in deep anesthesia Date of Last Stent Placement:: 2021 Past Psychological History: No Psychological Hx Reported Smoking Status: Current every day smoker Past Alcohol Use History: None Reported Past Drug Use History: None Reported - Past Family History Father Family Medical History: Cancer Additional Family Medical History / Comment(s): Multi myeloma Mother Family Medical History: Cancer Additional Family Medical History / Comment(s): Breast cancer General Exam Limitations: no limitations General appearance: alert, in no apparent distress Head exam: Present: atraumatic, normocephalic, normal inspection Eye exam: Present: normal appearance, PERRL, EOMI. Absent: scleral icterus, co njunctival injection, periorbital swelling ENT exam: Present: normal exam, normal oropharynx, mucous membranes moist Neck exam: Present: normal inspection, full ROM. Absent: tenderness, meningismus, lymphadenopathy Respiratory exam: Present: normal lung sounds bilaterally. Absent: respiratory distress, wheezes, rales, rhonchi, stridor Cardiovascular Exam: Present: regular rate, normal rhythm, normal heart sounds. Absent: systolic murmur, diastolic murmur, rubs, gallop, clicks GI/Abdominal exam: Present: soft, normal bowel sounds. Absent: distended, tenderness, guarding, rebound, rigid Extremities exam: Present: other (Bilateral lower extremity surgical, strength equal bilaterally equal color and equal warmth. Strength in lower extremity 5/5) Back exam: Present: full ROM, tenderness, paraspinal tenderness. Absent: vertebral tenderness Neurological exam: Present: alert, oriented X3, reflexes normal. Absent: motor sensory deficit Course Vital Signs 07/12/24 05:42 Temperature 98.3 F Pulse Rate 94 Respiratory 18 Rate Blood Pressure 152/81 O2 Sat by Pulse 97 Oximetry Medical Decision Making - Medical Decision Making Was pt. sent in by a medical professional or institution (DELFINO Wang, ADMINISTRATIVE ASSISTANT COORDINATOR, urgent care, hospital, or fci...) When possible be specific @ -No Did you speak to anyone other than the patient for history (EMS, parent, family, police, friend...)? What history was obtained from this source @ -No Did you review nursing and triage notes (agree or disagree)? Why? @ -I reviewed and agree with nursing and triage notes Were old charts reviewed (outside hosp., previous admission, EMS record, old EKG, old radiological studies, urgent care reports/EKG's, fci records)? Report findings @ -No old charts were reviewed Differential Diagnosis (chest pain, altered mental status, abdominal pain women, abdominal pain men, vaginal bleeding, weakness, fever, dyspnea, syncope, headache, dizziness, GI bleed, back pain, seizure, CVA, palpatations, mental health, musculoskeletal)? @ -Differential Back Pain: Strain, zoster, cauda equina syndrome, epidural abscess, vertebral osteomyelitis, discitis, fracture, subluxation, disc herniation, DJD, spinal stenosis, dissection, AAA, pancreatitis, peptic ulcer disease, pyelonephritis, kidney stone, this is not meant to be an all-inclusive list. EKG interpreted by me (3pts min.). @ -None X-rays interpreted by me (1pt min.). @ -None done CT interpreted by me (1pt min.). @ -CT lumbar spine showing stable surgical changes no acute process. U/S interpreted by me (1pt. min.). @ -None done What testing was considered but not performed or refused? (CT, X-rays, U/S, labs)? Why? @ -None What meds were considered but not given or refused? Why? @ -None Did you discuss the management of the patient with other professionals (professionals i.e. , PA, ADMINISTRATIVE ASSISTANT COORDINATOR, lab, RT, psych nurse, social worker aide, black pickler, teacher, rating officer, case loader operator)? Give summary @ -No Was smoking cessation discussed for >3mins.? @ -No Was critical care preformed (if so, how long)? @ -No Were there social determinants of health that impacted care today? How? (Homelessness, low income, unemployed, alcoholism, drug addiction, transportation, low edu. Level, literacy, decrease access to med. care, retirement, rehab)? @ -No Was there de-escalation of care discussed even if they declined (Discuss DNR or withdrawal of care, Hospice)? DNR status @ -No What co-morbidities impacted this encounter? (DM, HTN, Smoking, COPD, CAD, Can cer, CVA, ARF, Chemo, Hep., AIDS, mental health diagnosis, sleep apnea, morbid obesity)? @ -None Was patient admitted / discharged? Hospital course, mention meds given and route, prescriptions, significant lab abnormalities, going to OR and other pertinent info. @ -Discharge patient has lumbar radiculopathy symptoms. This has been ongoing on evaluated by her orthopedic surgeon. She has no red flag symptoms. She does having pain improvement after injection. Patient discharged with steroids return transfer discussed. Undiagnosed new problem with uncertain prognosis? @ -No Drug Therapy requiring intensive monitoring for toxicity (Heparin, Nitro, Insulin, Cardizem)? @ -No Were any procedures done? @ -No Diagnosis/symptom? @ -lumbar radiculopathy Acute, or Chronic, or Acute on Chronic? @ -acute Uncomplicated (without systemic symptoms) or Complicated (systemic symptoms)? @ -uncomplicated Side effects of treatment? @ -No Exacerbation, Progression, or Severe Exacerbation? @ -No Poses a threat to life or bodily function? How? (Chest pain, [place], [place], pneumonia, PE, COPD, DKA, ARF, appy, cholecystitis, CVA, Diverticulitis, Homicidal, Suicidal, threat to staff... and all critical care pts) @ -No Disposition Clinical Impression: Lumbar radiculopathy, acute Disposition: HOME SELF-CARE Condition: Stable Instructions (If sedation given, give patient instructions): Lumbar Radiculopathy (ED) Additional Instructions: Please return to the Emergency Department if symptoms worsen or any other concerns. Prescriptions: predniSONE 50 mg PO DAILY #4 tab Is patient prescribed a controlled substance at d/c from ED?: No Referrals: Jovon Mejía DO [Primary Care Provider] - 1-2 days Time of Disposition: 07:58
--- NOTE | 2024-07-12 07:18 | CT ---
EXAMINATION TYPE: CT lumbar spine wo con CT DLP: 718.1 mGycm, Automated exposure control for dose reduction was used. DATE OF EXAM: 07/12/2024 6:53 AM COMPARISON: CT lumbar spine 06/20/2024, MRI lumbar spine 02/25/2024. CLINICAL INDICATION:Female, 69 years old with history of pain right radicular s/p lumbar surgery; [facility] , Lumbar surgery x 3 weeks ago, shooting pain down right leg x 1 week., pain TECHNIQUE: Multiple axial images were obtained from the midportion of T11 through the sacroiliac baljeet nts. Soft tissue and bone windows in coronal and sagittal planes were obtained and reviewed. Contrast used: none. Oral contrast used: none. FINDINGS: Alignment: There are 5 lumbar type vertebral bodies within normal alignment. Bone: Postsurgical changes from posterior fusion of L5-S1 with disc spacer. Hardware appears intact with appropriate alignment. This creates streak artifact which limits evaluation. No evidence of frac ture is identified. Redemonstration of a superior endplate Schmorl's node involving the L4 vertebral body. Discs: T12-L1: No spinal canal or neural foraminal stenosis is identified. L1-L2: No spinal canal or neural foraminal stenosis is identified. L2-L3: Broad-based disc bulge with mild effacement of the anterior thecal sac. Resultant mild central canal stenosis. Mild bilateral neural foraminal stenosis. L3-L4: Broad-based disc bulge with mild effacement of the anterior thecal sac. Resultant mild central canal stenosis. Mild bilateral neural foraminal stenosis. L4-L5: Broad-based disc bulge suggested with ligamentum flavum buckling resulting in mild central can al stenosis. Bilateral facet arthropathy. Mild bilateral neuroforaminal stenosis. L5-S1: No gross evidence of significant central canal or neural foraminal stenosis within limitations of streak artifact. Other: Atherosclerotic calcification of the aorta and its branches. INFORMATION SECURITY MANAGER shunt catheter identified. Dis antonio colonic diverticulosis without visualized acute diverticulitis. IMPRESSION: 1. No evidence for acute spinal fracture. 2. Postsurgical changes from posterior fusion L5-S1. Hardware appears intact. This creates streak art ifact which limits evaluation. Consider further evaluation with MRI if there is continued clinical co ncern. 3. [id number] multilevel degenerative disc disease redemonstrated as described above. [facility], , 07/12/2024 7:15 AM
[2024-07-12] MEDS: ONDANSETRON ODT 4 MG TAB PO STA (08:22)
[2024-07-12 08:37] VITALS: BP 137/80; PULSE 89; RESP 14; TEMP 98.6
== END 2024-07-12 08:37 | disposition home or self-care (01) ==
LOC: EC 05:41
DX: M54.16 Radiculopathy, lumbar region (principal); F17.200 Nicotine dependence, unspecified, uncomplicated; Z88.0 Allergy status to penicillin; Z88.7 Allergy status to serum and vaccine; Z88.5 Allergy status to narcotic agent; Z88.8 Allergy status to other drugs, medicaments and biological substances
CPT/HCPCS: 72131; 99283; 96372; J1171

== ENCOUNTER 2024-09-15 03:39 | Inpatient (IN) | payer MEDICARE ==
--- NOTE | 2024-09-15 04:05 | ED ---
General Adult HPI - General Source: patient Mode of arrival: EMS Limitations: no limitations <Ramona Best - Last Filed: 09/15/24 07:31> <Marva - Last Filed: 09/15/24 22:02> - General Chief complaint: Shortness of Breath Stated complaint: Difficulty Breathing Time Seen by Provider: 09/15/24 03:52 - History of Present Illness Initial comments: Patient is a 69-year-old female with history of COPD, history of KS with 5 stents, hypertension, hyperlipidemia presenting for 2 hours of difficulty breathing. She states that she woke up to use the bathroom and then she was unable to take a deep breath so she called EMS. She uses Trelegy and albuterol as needed for her COPD. She last used her albuterol Saturday night around 7 PM as she has been having worsening difficulty breathing over the last few days. She reports worsening nonproductive cough. She uses 2.5-3 L O2 nightly as needed. She is a current 1 pack/day smoker. She denies fever/chills, nausea/vomiting, chest pain, orthopnea, PND, pedal edema. She denies recent travel, hospitalization, surgeries, or history of blood clots. (Ramona Best) - Related Data Home Medications Medication Instructions Recorded Confirmed Clopidogrel [Plavix] 75 mg PO HS 12/07/19 09/15/24 Losartan/Hydrochlorothiazide 1 tab PO DAILY PRN 12/07/19 09/15/24 [Losartan-Hctz 50-12.5 mg Tab] Omeprazole [PriLOSEC] 20 mg PO BID 12/07/19 09/15/24 Aspirin 81 mg PO DAILY 09/17/22 09/15/24 Levothyroxine Sodium [Synthroid] 112 mcg PO DAILY 09/17/22 09/15/24 Atorvastatin [Lipitor] 40 mg PO HS 07/26/23 09/15/24 Metoprolol Succinate (ER) [Toprol 25 mg PO DAILY 07/26/23 09/15/24 XL] Multivit-Min/FA/Lycopen/Lutein 1 tab PO DAILY 07/26/23 09/15/24 [Centrum Silver Tablet] Albuterol Inhaler [Ventolin Hfa 1 - 2 puff INHALATION RT-Q6H PRN 06/15/24 09/15/24 Inhaler] Fluticasone/Umeclidin/Vilanter 1 puff INHALATION RT-DAILY 06/15/24 09/15/24 [Nolberto Antoine 100-62.5-25] Allergies Allergy/AdvReac Type Severity Reaction Status Date / Time amoxicillin Allergy Rash/Hives Verified 09/15/24 07:50 influenza virus vaccine, Allergy Rash/Hives Verified 09/15/24 07:50 specific Tetracyclines Allergy Rash/Hives Verified 09/15/24 07:50 codeine AdvReac SYNCOPE Verified 09/15/24 07:50 Review of Systems ROS Other: All systems not noted in ROS Statement are negative. Constitutional: Denies: fever, chills ENT: Denies: throat pain Respiratory: Reports: cough, dyspnea, wheezes Cardiovascular: Denies: chest pain, paroxysmal nocturnal dyspnea Gastrointestinal: Denies: abdominal pain, nausea, vomiting Genitourinary: Denies: dysuria, hematuria Neurological: Denies: headache <Ramona Best - Last Filed: 09/15/24 07:31> ROS Other: All systems not noted in ROS Statement are negative. <Marva Naqvi - Last Filed: 09/15/24 22:02> ROS Statement: Those systems with pertinent positive or pertinent negative responses have been documented in the HPI. Past Medical History Past Medical History: Coronary Artery Disease (CAD), Cancer, Hyperlipidemia, Hypertension, Myocardial Infarction ([place]) Additional Past Medical History / Comment(s): hepatits as a child, latent TB at 31 years old, breast cancer, benign intracranial hypertension. Last Myocardial Infarction Date:: 2006 History of Any Multi-Drug Resistant Organisms: None Reported Past Surgical History: No Surgical Hx Reported, Orthopedic Surgery Additional Past Surgical History / Comment(s): heart stents x5, partial left mastectomy, [employer] shunt. Past Anesthesia/Blood Transfusion Reactions: No Reported Reaction Additional Past Anesthesia/Blood Transfusion Reaction / Comment(s): pt is combative if not in deep anesthesia Date of Last Stent Placement:: 2021 Past Psychological History: No Psychological Hx Reported Smoking Status: Current every day smoker Past Alcohol Use History: None Reported Past Drug Use History: None Reported - Past Family History Father Family Medical History: Cancer Additional Family Medical History / Comment(s): Multi myeloma Mother Family Medical History: Cancer Additional Family Medical History / Comment(s): Breast cancer <Ramona Best - Last Filed: 09/15/24 07:31> General Exam Limitations: no limitations <Ramona Best - Last Filed: 09/15/24 07:31> - General Exam Comments Initial Comments: Vital signs are stable. General: No acute distress. AOx4. HEENT: Head exam is unremarkable. EOMI bilaterally. ACs patent. Nares patent. Lungs: Bilateral breath sounds present without expiratory wheezes diffusely; no rhonchi or rales. Slightly increased work of breathing. Heart: Rate and rhythm are regular. S1-S2 present. No murmur/rub/gallops. Abdomen: Soft, nontender, nondistended. Bowel sounds present. Extremities: No edema present. Symmetric movement. Psych: Normal affect and mood. Cooperative. (Ramona Best) Course Vital Signs 09/15/24 09/15/24 09/15/24 03:39 04:49 05:10 Temperature 98.6 F Pulse Rate 85 87 Respiratory 35 H Rate Blood Pressure 136/77 O2 Sat by Pulse Oximetry 09/15/24 09/15/24 09/15/24 05:45 06:08 07:24 Temperature Pulse Rate 88 90 90 Respiratory 18 Rate Blood Pressure 126/54 O2 Sat by Pulse 97 Oximetry 09/15/24 09/15/24 09/15/24 08:51 09:02 12:24 Temperature Pulse Rate 83 85 75 Respiratory Rate Blood Pressure O2 Sat by Pulse 97 Oximetry 09/15/24 09/15/24 09/15/24 12:35 13:07 14:41 Temperature Pulse Rate 76 84 86 Respiratory 16 18 Rate Blood Pressure 117/55 130/76 O2 Sat by Pulse 94 L 95 Oximetry 09/15/24 09/15/24 16:16 16:26 Temperature Pulse Rate 73 75 Respiratory Rate Blood Pressure O2 Sat by Pulse Oximetry Medical Decision Making - Lab Data Result diagrams: 09/15/24 03:52 09/15/24 03:52 <Ramona Best - Last Filed: 09/15/24 07:31> - Lab Data Result diagrams: 09/15/24 03:52 09/15/24 03:52 <Marva Naqvi - Last Filed: 09/15/24 22:02> - Medical Decision Making Was pt. sent in by a medical professional or institution (DELFINO Wang, [employer]RAW[employer], urgent care, hospital, or senior care...) When possible be specific @ -No Did you speak to anyone other than the patient for history (EMS, parent, family, police, friend...)? What history was obtained from this source @ -No Did you review nursing and triage notes (agree or disagree)? Why? @ -I reviewed and agree with nursing and triage notes Were old charts reviewed (outside hosp., previous admission, EMS record, old EKG, old radiological studies, urgent care reports/EKG's, senior care records)? Report findings @ -No old charts were reviewed Differential Diagnosis? @ -Differential Dyspnea: Coronary syndrome, arrhythmia, tamponade, asthma, COPD, pulmonary embolism, pneumonia, pneumothorax, pulmonary effusion, anaphylaxis, diabetic ketoacidosis, flailed chest, pulmonary contusion, diaphragmatic rupture, anemia, neuromuscular, this is not meant to be an all-inclusive list. EKG interpreted by me (3pts min.). @ -As above X-rays interpreted by me (1pt min.). @ -Cardiomegaly, no acute cardiopulmonary process CT interpreted by me (1pt min.). @ -None done U/S interpreted by me (1pt. min.). @ -None done What testing was considered but not performed or refused? (CT, X-rays, U/S, labs )? Why? @ -None What meds were considered but not given or refused? Why? @ -None Did you discuss the management of the patient with other professionals (professionals i.e. DELFINO Wang, [employer]ANC[employer] W[employer] DRAWER, lab, RT, psych nurse, sr. social media & mobile manager, sports lawyer, teacher, special forces officer, case filler)? Give summary @ -No Was smoking cessation discussed for >3mins.? @ -Yes Was critical care preformed (if so, how long)? @ -No Were there social determinants of health that impacted care today? How? (Homelessness, low income, unemployed, alcoholism, drug addiction, transportation, low edu. Level, literacy, decrease access to med. care, alf, rehab)? @ -No Was there de-escalation of care discussed even if they declined (Discuss DNR or withdrawal of care, Hospice)? DNR status @ -No What co-morbidities impacted this encounter? (DM, HTN, Smoking, COPD, CAD, Cancer, CVA, ARF, Chemo, Hep., AIDS, mental health diagnosis, sleep apnea, morbid obesity)? @ -COPD, smoking Was patient admitted / discharged? Hospital course, mention meds given and route, prescriptions, significant lab abnormalities, going to OR and other pertinent info. @ -Patient is a 69-year-old female with history of COPD presenting for 2 hours of difficulty breathing. On physical exam she had good air entry but expiratory wheezes diffusely, increased work of breathing. CBC, CMP, BNP, troponin, EKG, chest x-ray were obtained. She was given Solu-Medrol and DuoNebs x 2. Chest x- ray showed chronic changes and cardiomegaly without acute pulmonary process. R eassessment after DuoNebs showed unchanged wheezes. Patient still having increased work of breathing. D-dimer elevated to 0.68, years criteria PE excluded. Dr. Naqvi discussed case with [facility] and she was admitted as inpatient. Undiagnosed new problem with uncertain prognosis? @ -No Drug Therapy requiring intensive monitoring for toxicity (Heparin, Nitro, Insulin, Cardizem)? @ -No Were any procedures done? @ -No Diagnosis/symptom? @ -COPD exacerbation Acute, or Chronic, or Acute on Chronic? @ -Acute on chronic Uncomplicated (without systemic symptoms) or Complicated (systemic symptoms)? @ -Uncomplicated Side effects of treatment? @ -No Exacerbation, Progression, or Severe Exacerbation? @ -No Poses a threat to life or bodily function? How? (Chest pain, [place], [place], pneumonia, PE, COPD, DKA, ARF, appy, cholecystitis, CVA, Diverticulitis, Homicidal, Suicidal, threat to staff... and all critical care pts) @ -No (Ramona Best) I personally saw the patient and performed the critical portion of the service. I discussed the patient care with the resident physician. I directed management, care planning and final disposition of the patient. This includes, but not li mited to, review of all lab work, radiological studies, EKG's, consultations, vital signs, and nursing notes. EKG interpreted by me (3pts min.) @Sinus rhythm, rate 75 bpm, intervals within acceptable limits, left axis deviation, right bundle branch block no significant ST elevations or depressio ns, no arrhythmia X-Rays interpreted by me (1 pt min.) @ Personally reviewed chest x-ray, cardiomegaly, possible right lower lobe developing pleural effusion CT interpreted by me ( 1pt min.) @ [none] U/S interpreted by me (1 pt min.) @ [none] Critical care time of 35 minutes excluding separately billable procedures was spent in conjunction with critical care activities provided by the Resident and Attending simultaneously. I was present during [no procedures] for all critical portions of the procedure and as immediately available to furnish service during the entire procedure. (Marva Naqvi) - Lab Data Lab Results 09/15/24 09/15/24 09/15/24 Range/Units 03:52 03:52 03:52 WBC 12.69 H (4.50-10.00) 10*3/uL RBC 3.72 L (4.10-5.20) 10*6/uL Hgb 11.8 L (12.0-15.0) g/dL Hct 35.9 L (37.2-46.3) % MCV 96.5 (80.0-97.0) fL MCH 31.7 (27.0-32.0) pg MCHC 32.9 (32.0-37.0) g/dL Plt Count 240 (140-440) 10*3/uL MPV 10.2 (9.5-12.2) fL Immature Gran % (Auto) 0.4 % Neutrophils % 81.1 % Lymphocytes % 6.1 % Monocytes % 11.0 % Eosinophils % 0.8 % Basophils % 0.6 % Immature Gran # 0.05 H (0.00-0.04) 10*3/uL Neutrophils # 10.30 H (1.80-7.70) 10*3/uL Lymphocytes # 0.77 L (0.90-5.00) 10*3/uL Monocytes # 1.40 H (0.20-1.00) 10*3/uL Eosinophils # 0.10 (0.04-0.35) 10*3/uL Basophils # 0.07 (0.00-0.10) 10*3/uL PT (10.0-12.5) sec INR (<1.2) APTT (22.0-30.0) sec D-Dimer (<0.60) mg/L FEU Sodium 139 (137-145) mmol/L Potassium 3.8 (3.5-5.1) mmol/L Chloride 104 (98-107) mmol/L Carbon Dioxide 29 (22-30) mmol/L Anion Gap 6 mmol/L BUN 13 (7-17) mg/dL Creatinine 0.55 (0.52-1.04) mg/dL Est GFR (CKD-EPI)AfAm >90 (>60 ml/min/1.73 sqM) Est GFR (CKD-EPI)NonAf >90 (>60 ml/min/1.73 sqM) Glucose 104 H (74-99) mg/dL Calcium 9.3 (8.4-10.2) mg/dL Total Bilirubin 0.5 (0.2-1.3) mg/dL AST 160 H (14-36) U/L ALT 147 H (4-34) U/L Alkaline Phosphatase 163 H (38-126) U/L Troponin I 0.018 (0.000-0.034) ng/mL NT-Pro-B Natriuret Pep 3060 pg/mL Total Protein 6.3 (6.3-8.2) g/dL Albumin 3.6 (3.5-5.0) g/dL Influenza Type A (PCR) (Not Detectd) Influenza Type B (PCR) (Not Detectd) RSV (PCR) (Not Detectd) SARS-CoV-2 (PCR) (Not Detectd) 09/15/24 09/15/24 Range/Units 03:52 05:41 WBC (4.50-10.00) 10*3/uL RBC (4.10-5.20) 10*6/uL Hgb (12.0-15.0) g/dL Hct (37.2-46.3) % MCV (80.0-97.0) fL MCH (27.0-32.0) pg MCHC (32.0-37.0) g/dL Plt Count (140-440) 10*3/uL MPV (9.5-12.2) fL Immature Gran % (Auto) % Neutrophils % % Lymphocytes % % Monocytes % % Eosinophils % % Basophils % % Immature Gran # (0.00-0.04) 10*3/uL Neutrophils # (1.80-7.70) 10*3/uL Lymphocytes # (0.90-5.00) 10*3/uL Monocytes # (0.20-1.00) 10*3/uL Eosinophils # (0.04-0.35) 10*3/uL Basophils # (0.00-0.10) 10*3/uL PT 11.1 (10.0-12.5) sec INR 1.0 (<1.2) APTT 20.3 L (22.0-30.0) sec D-Dimer 0.68 H (<0.60) mg/L FEU Sodium (137-145) mmol/L Potassium (3.5-5.1) mmol/L Chloride (98-107) mmol/L Carbon Dioxide (22-30) mmol/L Anion Gap mmol/L BUN (7-17) mg/dL Creatinine (0.52-1.04) mg/dL Est GFR (CKD-EPI)AfAm (>60 ml/min/1.73 sqM) Est GFR (CKD-EPI)NonAf (>60 ml/min/1.73 sqM) Glucose (74-99) mg/dL Calcium (8.4-10.2) mg/dL Total Bilirubin (0.2-1.3) mg/dL AST (14-36) U/L ALT (4-34) U/L Alkaline Phosphatase (38-126) U/L Troponin I (0.000-0.034) ng/mL NT-Pro-B Natriuret Pep pg/mL Total Protein (6.3-8.2) g/dL Albumin (3.5-5.0) g/dL Influenza Type A (PCR) Not Detected (Not Detectd) Influenza Type B (PCR) Not Detected (Not Detectd) RSV (PCR) Not Detected (Not Detectd) SARS-CoV-2 (PCR) Not Detected (Not Detectd) - EKG Data EKG Comments: Sinus rhythm, rate 75 bpm, no ST segment changes, NE interval 166 ms, QTc 442 ms (Ramona Best) Disposition Is patient prescribed a controlled substance at d/c from ED?: No Time of Disposition: 06:08 <Ramona Best - Last Filed: 09/15/24 07:31> <Marva Naqvi - Last Filed: 09/15/24 22:02> Clinical Impression: COPD exacerbation Disposition: ADMITTED IP TO THIS HOSP Condition: Stable
[2024-09-15] MEDS: methylPREDNISolone SOD SUCCI 125 MG/2 ML VIAL IV STA (04:21)
[2024-09-15] MEDS: IPRATROPIUM-ALBUTEROL 3 ML NEB INHALATION STA ×4 (04:49→05:45)
[2024-09-15 04:56] LABS: Basophils # (A) 0.07 10*3/uL (0.00-0.10); Basophils % (A) 0.6 %; Eosinophils % (A) 0.8 %; HCT 35.9 % (37.2-46.3); HGB 11.8 g/dL (12.0-15.0); Lymphocytes # (A) 0.77 10*3/uL (0.90-5.00); Lymphocytes % (A) 6.1 %; MCH 31.7 pg (27.0-32.0); MCHC 32.9 g/dL (32.0-37.0); MCV 96.5 fL (80.0-97.0); Mean Platelet Volume 10.2 fL (9.5-12.2); Neutrophils % (A) 81.1 %; Platelet Count 240 10*3/uL (140-440); RBC 3.72 10*6/uL (4.10-5.20); RDW 14.3 % (11.5-14.5); WBC 12.69 10*3/uL (4.50-10.00)
[2024-09-15 04:58] LABS: ALT 147 U/L (4-34); AST 160 U/L (14-36); African American GFR (CKD) >90 (>60 ml/min/1.73 sqM); Albumin 3.6 g/dL (3.5-5.0); Alkaline Phosphatase 163 U/L (38-126); Anion Gap 6 mmol/L; Blood Urea Nitrogen 13 mg/dL (7-17); Calcium 9.3 mg/dL (8.4-10.2); Carbon Dioxide 29 mmol/L (22-30); Chloride 104 mmol/L (98-107); Glucose 104 mg/dL (74-99); Non-African American GFR(CKD) >90 (>60 ml/min/1.73 sqM); Potassium 3.8 mmol/L (3.5-5.1); Sodium 139 mmol/L (137-145); Total Bilirubin 0.5 mg/dL (0.2-1.3); Total Protein 6.3 g/dL (6.3-8.2)
[2024-09-15 05:07] LABS: NT-Pro-B-Type Natriuretic Pept 3060 pg/mL
[2024-09-15 05:17] LABS: Influenza A Not Detected (Not Detectd); Influenza B Not Detected (Not Detectd); RSV Not Detected (Not Detectd)
[2024-09-15] MEDS ORDERED: NALOXONE 0.4 MG/ML 1 ML VIAL IVP PRN (06:17)
[2024-09-15] MEDS ORDERED: IPRATROPIUM-ALBUTEROL 3 ML NEB INHALATION PRN (06:18)
--- NOTE | 2024-09-15 06:37 | XR ---
EXAMINATION TYPE: XR chest 2V DATE OF EXAM: 09/15/2024 CLINICAL INDICATION: Female, 69 years old with history of shaggy, TECHNIQUE: Frontal and lateral views of the chest are obtained. COMPARISON: Chest x-ray June 20, 2024 FINDINGS: There is background chronic emphysematous changes without suspicious focal air space opaci ty, pleural effusion, or pneumothorax seen. Persistent cardiomegaly. Nonspecific chondroid lesion rig ht humeral head is redemonstrated. IMPRESSION: Chronic changes and cardiomegaly without acute pulmonary process. [facility], , 09/15/2024 6:35 AM
[2024-09-15 06:40] LABS: Partial Thromboplastin Time 20.3 sec (22.0-30.0); Prothrombin Time 11.1 sec (10.0-12.5)
[2024-09-15] MEDS: NICOTINE 21MG/24HR PATCH TRANSDERM SCH (08:01)
[2024-09-15] MEDS: IPRATROPIUM-ALBUTEROL 3 ML NEB INHALATION SCH (08:50)
[2024-09-15] MEDS: SYMBICORT 160-4.5 MCG INHALER INHALATION SCH (12:19)
[2024-09-15] MEDS: PANTOPRAZOLE 40 MG TABLET PO SCH (14:41)
[2024-09-15] MEDS: METOPROLOL SUCCINATE (ER) 25 MG TAB.ER.24H PO SCH (14:41)
[2024-09-15] MEDS: LEVOTHYROXINE 112 MCG TAB PO SCH (14:41)
[2024-09-15] MEDS: ASPIRIN 81 MG PO SCH (14:41)
--- NOTE | 2024-09-15 15:12 | P.CNPUL ---
History of Present Illness Consult date: 09/15/24 Requesting physician: Ramona Best Reason for consult: dyspnea, COPD Chief complaint: Shortness of breath History of present illness: This is a pleasant 69-year-old female patient with a known history of coronary artery disease with previous stent placement x 5, hypertension, hyperlipidemia, chronic obstructive pulmonary disease requiring O2 at 2 to 3 L at night. She has chronic and ongoing tobacco dependence, breast cancer with partial left mastectomy, latent tuberculosis, benign intracranial hypertension with [employer] shunt. She presented here to the emergency room early this morning after waking up to use the bathroom and then unable to catch her breath. Chest x-ray shows chronic changes and cardiomegaly without acute pulmonary process. White count 12.6. Hemoglobin 11.8. Platelets 240. Sodium 139. Potassium 3.8. Bicarb 29. BUN 13. Creatinine 0.55. AST 160. ALT 147. proBNP 3060. Viral screen negative for influenza A/B, RSV, COVID. She is seen today in consultation in the emergency department. Currently sitting up on a stretcher. Awake and alert in no acute distress. Maintaining O2 saturations in the 90s on 2 L/min per nasal cannula. She has been afebrile. Hemodynamically stable. Review of Systems REVIEW OF SYSTEMS: CONSTITUTIONAL: Denies any recent significant weight loss or weight gain. EYES: Denies change in vision. EARS, NOSE, MOUTH, THROAT: Denies headaches, denies sore throat. CARDIOVASCULAR: Denies chest pain, palpitations or syncopal episodes. RESPIRATORY: Positive for shortness of breath, cough, congestion no hemoptysis. GASTROINTESTINAL: Denies change in appetite, denies abdominal pain GENITOURINARY: Denies hematuria, denies infections. MUSKULOSKELETAL: Denies pain, denies swelling. INTEGUMENTARY: Denies rash, denies eczema. NEUROLOGICAL: Denies recent memory loss, no recent seizure activity. PSYCHIATRIC: Denies anxiety, denies depression. HEMATOLOGIC/LYMPHATIC: Denies anemia, denies enlarged lymph nodes. Past Medical History Past Medical History: Coronary Artery Disease (CAD), Cancer, Hyperlipidemia, Hypertension, Myocardial Infarction ([place]) Additional Past Medical History / Comment(s): hepatits as a child, latent TB at 31 years old, breast cancer, benign intracranial hypertension. Last Myocardial Infarction Date:: 2006 History of Any Multi-Drug Resistant Organisms: None Reported Past Surgical History: No Surgical Hx Reported, Orthopedic Surgery Additional Past Surgical History / Comment(s): heart stents x5, partial left mastectomy, [employer] shunt. Past Anesthesia/Blood Transfusion Reactions: No Reported Reaction Additional Past Anesthesia/Blood Transfusion Reaction / Comment(s): pt is combative if not in deep anesthesia Date of Last Stent Placement:: 2021 Past Psychological History: No Psychological Hx Reported Smoking Status: Current every day smoker Past Alcohol Use History: None Reported Past Drug Use History: None Reported - Past Family History Father Family Medical History: Cancer Additional Family Medical History / Comment(s): Multi myeloma Mother Family Medical History: Cancer Additional Family Medical History / Comment(s): Breast cancer Medications and Allergies Home Medications Medication Instructions Recorded Confirmed Type Clopidogrel [Plavix] 75 mg PO HS 12/07/19 09/15/24 History Losartan/Hydrochlorothiazide 1 tab PO DAILY PRN 12/07/19 09/15/24 History [Losartan-Hctz 50-12.5 mg Tab] Omeprazole [PriLOSEC] 20 mg PO BID 12/07/19 09/15/24 History Aspirin 81 mg PO DAILY 09/17/22 09/15/24 History Levothyroxine Sodium [Synthroid] 112 mcg PO DAILY 09/17/22 09/15/24 History Atorvastatin [Lipitor] 40 mg PO HS 07/26/23 09/15/24 History Metoprolol Succinate (ER) [Toprol 25 mg PO DAILY 07/26/23 09/15/24 History XL] Multivit-Min/FA/Lycopen/Lutein 1 tab PO DAILY 07/26/23 09/15/24 History [Centrum Silver Tablet] Albuterol Inhaler [Ventolin Hfa 1 - 2 puff INHALATION RT-Q6H PRN 06/15/24 09/15/24 History Inhaler] Fluticasone/Umeclidin/Vilanter 1 puff INHALATION RT-DAILY 06/15/24 09/15/24 History [Trelegy Ellipta 100-62.5-25] Allergies Allergy/AdvReac Type Severity Reaction Status Date / Time amoxicillin Allergy Rash/Hives Verified 09/15/24 07:50 influenza virus vaccine, Allergy Rash/Hives Verified 09/15/24 07:50 specific Tetracyclines Allergy Rash/Hives Verified 09/15/24 07:50 codeine AdvReac SYNCOPE Verified 09/15/24 07:50 Physical Exam Vitals: Vital Signs Temp Pulse Resp BP Pulse Ox 09/15/24 14:41 86 18 130/76 95 09/15/24 13:07 84 16 117/55 94 L 09/15/24 12:35 76 09/15/24 12:24 75 09/15/24 09:02 85 09/15/24 08:51 83 97 09/15/24 07:24 90 18 126/54 97 09/15/24 06:08 90 09/15/24 05:45 88 09/15/24 05:10 87 09/15/24 04:49 85 09/15/24 03:39 98.6 F 35 H 136/77 Intake and Output 09/15/24 09/15/24 09/15/24 06:59 14:59 22:59 Other: Weight 62.596 kg GENERAL EXAM: Alert, pleasant 69-year-old female, on 2 L nasal cannula, fairly comfortable in no apparent distress. HEAD: Normocephalic. EYES: Normal reaction of pupils, equal size. NOSE: Clear with pink turbinates. THROAT: No erythema or exudates. NECK: No masses, no JVD. CHEST: No chest wall deformity. LUNGS: Equal air entry with bilateral wheeze, diminished. CVS: S1 and S2 normal with no audible murmur, regular rhythm. ABDOMEN: No hepatosplenomegaly, normal bowel sounds, no guarding or rigidity. SPINE: No scoliosis or deformity SKIN: No rashes CENTRAL NERVOUS SYSTEM: No focal deficits, tone is normal in all 4 extremities. EXTREMITIES: There is no peripheral edema. No clubbing, no cyanosis. Peripheral pulses are intact. Results - Laboratory Findings CBC and BMP: 09/15/24 03:52 09/15/24 03:52 PT/INR, D-dimer PT 11.1 sec (10.0-12.5) 09/15/24 05:41 INR 1.0 (<1.2) 09/15/24 05:41 D-Dimer 0.68 mg/L FEU (<0.60) H 09/15/24 05:41 Abnormal lab findings: Abnormal Labs 09/15/24 09/15/24 09/15/24 03:52 03:52 05:41 WBC 12.69 H RBC 3.72 L Hgb 11.8 L Hct 35.9 L Immature Gran # 0.05 H Neutrophils # 10.30 H Lymphocytes # 0.77 L Monocytes # 1.40 H APTT 20.3 L D-Dimer 0.68 H Glucose 104 H AST 160 H ALT 147 H Alkaline Phosphatase 163 H - Diagnostic Findings Chest x-ray: image reviewed Assessment and Plan Assessment: Acute on chronic hypoxic respiratory failure secondary to an acute exacerbation of chronic obstructive pulmonary disease Chronic obstructive pulmonary disease maintained on home oxygen at night 2 to 3 L, Trelegy and albuterol Chronic and ongoing tobacco dependence of 50 years Coronary artery disease with previous stent placements x 5 History of breast cancer status post left partial mastectomy Hypertension Hyperlipidemia Hypothyroidism Gastroesophageal reflux disease Plan: The patient was seen and evaluated Chest x-ray, labs and medications reviewed Currently on 2 L nasal cannula Initiate DuoNeb inhalations Initiate Symbicort Initiate Solu-Medrol Resume home medications Educated regarding smoking cessation NicoDerm patch will be offered Titrate down the FiO2 as tolerated Increase her activity as tolerated We will continue to follow and make further recommendations based on her clinical status I have personally seen and examined the patient, performed the documentation and the assessment and plan as written. Number of minutes spent on the visit: 20 Dictation was produced using [employer]ivid[employer] dictation software. Please excuse any grammatical, word or spelling errors. Time with Patient: Greater than 30
[2024-09-15] MEDS: traMADol 50 MG TAB PO SCH (16:00)
--- NOTE | 2024-09-15 17:10 | P.HPIM ---
History of Present Illness H&P Date: 09/15/24 This is a 69-year-old female with past medical history significant for recent orthopedic spine surgery including L5-S1 laminectomy, facetectomy and foraminotomy on 06/19/24, COPD, chronic hypoxic respiratory failure wears 3 L nasal cannula O2 at hs, chronic nicotine dependence ,CAD with multiple stents, hypertension, hyperlipidemia, hypothyroidism, gastroesophageal reflux disease, breast cancer with partial left mastectomy/chemoradiation and multiple other medical issues presented to the ER with complaints of progressive exertional shortness of breath. Reports over the last week she has been feeling as if she is coming down with an upper respiratory infection cold or allergies with accompanied by mild diarrhea. Last night while getting up to the bathroom, could not take a deep breath. Reports compliant with home med regimen with no new medications started. Denies trying any new foods. Tachypneic on admission, respiratory rate 35. chest x-ray reported chronic changes and cardiomegaly without acute pulmonary process. Maintaining O2 sats in the 90s on 2 L nasal cannula. Afebrile, WBC 12.69, hemoglobin 11.8, platelets 240. Electrolytes, renal function within normal limits, AST 160, ALT 147, alk phos 143, proBNP 3060. Viral studies negative. Review of Systems ROS Other: All systems not noted in ROS Statement are negative. ROS Statement: Those systems with pertinent positive or pertinent negative responses have been documented in the HPI. Past Medical History Past Medical History: Coronary Artery Disease (CAD), Cancer, Hyperlipidemia, Hypertension, Myocardial Infarction (AL) Additional Past Medical History / Comment(s): hepatits as a child, latent TB at 31 years old, breast cancer, benign intracranial hypertension. Last Myocardial Infarction Date:: 2006 History of Any Multi-Drug Resistant Organisms: None Reported Past Surgical History: No Surgical Hx Reported, Orthopedic Surgery Additional Past Surgical History / Comment(s): heart stents x5, partial left mastectomy, [employer] shunt. Past Anesthesia/Blood Transfusion Reactions: No Reported Reaction Additional Past Anesthesia/Blood Transfusion Reaction / Comment(s): pt is combative if not in deep anesthesia Date of Last Stent Placement:: 2021 Past Psychological History: No Psychological Hx Reported Smoking Status: Current every day smoker Past Alcohol Use History: None Reported Past Drug Use History: None Reported - Past Family History Father Family Medical History: Cancer Additional Family Medical History / Comment(s): Multi myeloma Mother Family Medical History: Cancer Additional Family Medical History / Comment(s): Breast cancer Medications and Allergies Home Medications Medication Instructions Recorded Confirmed Type Clopidogrel [Plavix] 75 mg PO HS 12/07/19 09/15/24 History Losartan/Hydrochlorothiazide 1 tab PO DAILY PRN 12/07/19 09/15/24 History [Losartan-Hctz 50-12.5 mg Tab] Omeprazole [PriLOSEC] 20 mg PO BID 12/07/19 09/15/24 History Aspirin 81 mg PO DAILY 09/17/22 09/15/24 History Levothyroxine Sodium [Synthroid] 112 mcg PO DAILY 09/17/22 09/15/24 History Atorvastatin [Lipitor] 40 mg PO HS 07/26/23 09/15/24 History Metoprolol Succinate (ER) [Toprol 25 mg PO DAILY 07/26/23 09/15/24 History XL] Multivit-Min/FA/Lycopen/Lutein 1 tab PO DAILY 07/26/23 09/15/24 History [Centrum Silver Tablet] Albuterol Inhaler [Ventolin Hfa 1 - 2 puff INHALATION RT-Q6H PRN 06/15/24 09/15/24 History Inhaler] Fluticasone/Umeclidin/Vilanter 1 puff INHALATION RT-DAILY 06/15/24 09/15/24 History [Trelegy Ellipta 100-62.5-25] Allergies Allergy/AdvReac Type Severity Reaction Status Date / Time amoxicillin Allergy Rash/Hives Verified 09/15/24 07:50 influenza virus vaccine, Allergy Rash/Hives Verified 09/15/24 07:50 specific Tetracyclines Allergy Rash/Hives Verified 09/15/24 07:50 codeine AdvReac SYNCOPE Verified 09/15/24 07:50 Physical Exam Vitals: Vital Signs Temp Pulse Resp BP Pulse Ox 09/15/24 09:02 85 09/15/24 08:51 83 97 09/15/24 07:24 90 18 126/54 97 09/15/24 06:08 90 09/15/24 05:45 88 09/15/24 05:10 87 09/15/24 04:49 85 09/15/24 03:39 98.6 F 35 H 136/77 Intake and Output 09/14/24 09/15/24 09/15/24 22:59 06:59 14:59 Other: Weight 62.596 kg GENERAL: Well-developed, well-nourished, alert and oriented x3, not in any acute distress. HEENT: Normocephalic, atraumatic, pupils are round and equally reacting to light. EOMI. No scleral icterus. No conjunctival pallor, No pharyngeal erythema, No thyromegaly. CARDIOVASCULAR: S1 and S2 present. No murmurs, rubs, or gallops. PULMONARY: Unlabored, equal air entry, expiratory wheezing throughout, bilateral bases diminished ABDOMEN: Soft, nontender, nondistended, normoactive bowel sounds. No palpable organomegaly. EXTREMITIES: No cyanosis, clubbing, or pedal edema. Peripheral pulses intact. NEUROLOGICAL: Gross neurological examination did not reveal any focal deficits. SKIN: Warm and dry, no rashes. Results CBC & Chem 7: 09/15/24 03:52 09/15/24 03:52 Labs: Abnormal Lab Results - Last 24 Hours (Table) 09/15/24 09/15/24 09/15/24 Range/Units 03:52 03:52 05:41 WBC 12.69 H (4.50-10.00) 10*3/uL RBC 3.72 L (4.10-5.20) 10*6/uL Hgb 11.8 L (12.0-15.0) g/dL Hct 35.9 L (37.2-46.3) % Immature Gran # 0.05 H (0.00-0.04) 10*3/uL Neutrophils # 10.30 H (1.80-7.70) 10*3/uL Lymphocytes # 0.77 L (0.90-5.00) 10*3/uL Monocytes # 1.40 H (0.20-1.00) 10*3/uL APTT 20.3 L (22.0-30.0) sec D-Dimer 0.68 H (<0.60) mg/L FEU Glucose 104 H (74-99) mg/dL AST 160 H (14-36) U/L ALT 147 H (4-34) U/L Alkaline Phosphatase 163 H (38-126) U/L Assessment and Plan Assessment: Acute COPD exacerbation Acute on chronic hypoxic respiratory failure secondary to the above, uses 3 L nasal cannula q hs. Recent L5-S1 posterolateral and interbody fusion with decompression 06/23 History of CHF , diastolic dysfunction CAD wtih multiple cardiac stents Hypertension Hypothyroidism GERD History of breast cancer with partial left mastectomy and chemoradiation History of latent TB at age 31 History of benign intracranial hypertension with [employer] shunt Plan: Continue on current medication regimen ,monitoring and symptomatic treatment. Coagulation panel pending. maintain nebulized bronchodilators, steroids, Symbicort. Smoking cessation reinforced, nicotine patch ordered. Pulmonary consult in place. The impression and plan of care has been dictated as directed. : I performed a history and examination of this patient, discussed the same with the dictator. I agree with the dictator's note ,documented as a scribe. Any additional findings or plans will be noted.
[2024-09-15] MEDS: methylPREDNISolone SOD SUCCI 125 MG/2 ML VIAL IV SCH (18:50)
[2024-09-15 19:52] LABS: Glucose,Whole Blood 137 mg/dL (70-110)
[2024-09-15] MEDS: ATORVASTATIN 40 MG TAB PO SCH (21:32)
[2024-09-15] MEDS: CLOPIDOGREL 75 MG TAB PO SCH (21:32)
[2024-09-16 02:11] VITALS: TEMP 97.2
[2024-09-16 05:55] LABS: Glucose,Whole Blood 173 mg/dL (70-110)
[2024-09-16] MEDS ORDERED: SYMBICORT 160-4.5 MCG INHALER INHALATION SCH (08:00)
[2024-09-16 08:27] VITALS: RESP 18
[2024-09-16 11:20] LABS: Glucose,Whole Blood 150 mg/dL (70-110)
[2024-09-16 11:25] VITALS: BP 120/54
--- NOTE | 2024-09-16 13:28 | CT ---
EXAMINATION TYPE: CT angio chest DATE OF EXAM: 09/16/2024 COMPARISON: 07/26/2023 CLINICAL INDICATION: Female, 69 years old with history of r/o PE; PHH, R/O PE. TECHNIQUE: CTA scan of the thorax is performed with IV Contrast, patient injected with 100 ml mL of Isovue 370, pulmonary embolism protocol. MIP images are created and reviewed. CT DLP: 253.[address] CTDI: mGy Automated exposure control for dose reduction was used. FINDINGS: There are no filling defects within the pulmonary arterial circulation to suggest pulmonary emboli. There are mild chronic interstitial changes in the left lung base. There is no airspace consolidation. There are calcified hilar nodes and calcified granulomas in the right lung. There is a stable 5 mm ju xtapleural visual nodule on the right and a stable 7.5 nodule in the right lower lobe. There are no n ew or suspicious lung masses or nodules. There are mild emphysematous changes with an upper lobe predominance. There is no pleural effusion or pneumothorax. The great vessels chest are normal. There is no cardiomegaly. Limited scanning through the upper abdomen reveals no gross abnormality. There are no focal osseous lesions. IMPRESSION: 1. No evidence of pulmonary emphysema. 2. Findings consistent with granulomatous disease exposure. There is no new or suspicious lung mass o r nodule. 3. Mild chronic interstitial changes in the left lung base but no acute cardiopulmonary disease. [facility], , 09/16/2024 1:25 PM
--- NOTE | 2024-09-16 14:09 | P.PN ---
Subjective Progress Note Date: 09/16/24 Principal diagnosis: Acute on chronic hypoxic respiratory failure secondary to acute exacerbation of COPD This is a pleasant 69-year-old female patient with a known history of coronary artery disease with previous stent placement x 5, hypertension, hyperlipidemia, chronic obstructive pulmonary disease requiring O2 at 2 to 3 L at night. She has chronic and ongoing tobacco dependence, breast cancer with partial left mastectomy, latent tuberculosis, benign intracranial hypertension with [employer] shunt. She presented here to the emergency room early this morning after waking up to use the bathroom and then unable to catch her breath. Chest x-ray shows chronic changes and cardiomegaly without acute pulmonary process. White count 12.6. Hemoglobin 11.8. Platelets 240. Sodium 139. Potassium 3.8. Bicarb 29. BUN 13. Creatinine 0.55. AST 160. ALT 147. proBNP 3060. Viral screen negative for influenza A/B, RSV, COVID. She is seen today in consultation in the emergency department. Currently sitting up on a stretcher. Awake and alert in no acute distress. Maintaining O2 saturations in the 90s on 2 L/min per nasal cannula. She has been afebrile. Hemodynamically stable. Seen today on 09/16/2024, patient is feeling much better, breathing a lot easier, responding well to bronchodilators and steroids. Patient wants to go home, according to her she is significantly improved compared to how she felt yesterday. On 2 L nasal cannula O2 sat is 92 to 95%. On physical examination she had diminished breath sounds, no crackles rhonchi or wheezes. Objective - Vital Signs Vital signs: Vital Signs Temp 97.2 F L 09/16/24 11:24 Pulse 70 09/16/24 12:21 Resp 18 09/16/24 11:24 BP 120/54 09/16/24 11:24 Pulse Ox 92 L 09/16/24 11:24 FiO2 Intake & Output 09/15/24 09/16/24 09/16/24 18:59 06:59 18:59 Intake Total 10 480 Balance 10 480 Weight 62.596 kg 64.2 kg Intake: IV 10 Invasive Line 1 10 Oral 480 Other: Voiding Method Toilet Toilet # Voids 1 1 - Exam GENERAL EXAM: Revealed a very pleasant 69-year-old female in no distress, on 2 L nasal cannula HEAD: Normocephalic. EYES: Normal reaction of pupils, equal size. NOSE: Clear with pink turbinates. THROAT: No erythema or exudates. NECK: No masses, no JVD. CHEST: No chest wall deformity. LUNGS: Diminished breath sound bilaterally no rhonchi no wheezes CVS: S1 and S2 normal with no audible murmur, regular rhythm. ABDOMEN: No hepatosplenomegaly, normal bowel sounds, no guarding or rigidity. SPINE: No scoliosis or deformity SKIN: No rashes CENTRAL NERVOUS SYSTEM: No gross focal neurologic deficit EXTREMITIES: T no clubbing edema or cyanosis - Labs CBC & Chem 7: 09/15/24 03:52 09/15/24 03:52 Labs: Abnormal Lab Results - Last 24 Hours (Table) 09/15/24 09/16/24 09/16/24 Range/Units 19:50 05:53 11:19 POC Glucose (mg/dL) 137 H 173 H 150 H (70-110) mg/dL Assessment and Plan Assessment: Impression: Acute on chronic hypoxic respiratory failure secondary to an acute exacerbation of chronic obstructive pulmonary disease Chronic and ongoing tobacco dependence of 50 years Coronary artery disease with previous stent placements x History of breast cancer status post left partial mastectomy Hypertension Hyperlipidemia Hypothyroidism Gastroesophageal reflux disease Recommendation: Considering the improvement, I will clear the patient to go home on oxygen which she already has albuterol, DuoNeb updrafts, Trelegy Ellipta, and prednisone 40 mg taper over the next 2 weeks. Patient to see me in the office as scheduled or in the next 7 to 10 days. Time with Patient: Less than 30
[2024-09-16] MEDS ORDERED: predniSONE 20 MG TAB PO SCH (14:15)
[2024-09-16 14:58] VITALS: PULSE 79
== END 2024-09-16 15:29 | disposition home health service (06) | DRG 190 ==
LOC: EC 03:39 → 3SCARD 06:21 → OBSVTOIN 06:21 → 3SCARD 09:11
PROVIDERS: ADMIT Family Medicine; ATTEND Family Medicine
DX: J44.1 Chronic obstructive pulmonary disease with (acute) exacerbation (principal); J96.21 Acute and chronic respiratory failure with hypoxia; I50.32 Chronic diastolic (congestive) heart failure; I11.0 Hypertensive heart disease with heart failure; Z11.52 Encounter for screening for COVID-19; E03.9 Hypothyroidism, unspecified; K21.9 Gastro-esophageal reflux disease without esophagitis; E78.5 Hyperlipidemia, unspecified; F17.210 Nicotine dependence, cigarettes, uncomplicated; I25.10 Atherosclerotic heart disease of native coronary artery without angina pectoris; Z79.890 Hormone replacement therapy; I25.2 Old myocardial infarction; Z79.82 Long term (current) use of aspirin; Z79.899 Other long term (current) drug therapy; Z85.3 Personal history of malignant neoplasm of breast; Z86.15 Personal history of latent tuberculosis infection; Z90.12 Acquired absence of left breast and nipple; Z92.21 Personal history of antineoplastic chemotherapy; Z92.3 Personal history of irradiation; Z95.5 Presence of coronary angioplasty implant and graft; Z98.2 Presence of cerebrospinal fluid drainage device; Z88.5 Allergy status to narcotic agent; Z88.1 Allergy status to other antibiotic agents; Z88.7 Allergy status to serum and vaccine
CPT/HCPCS: 36415; 71046; 71275; 80053; 83880; 84484; 85025; 85379; 85610; 85730; 87636; 93005; 94640; 94760; 96374; 99285